=== PATIENT | female | born 1990 | race Caucasian/White ===

== ENCOUNTER 2018-02-07 18:16 | Emergency (ER) | payer MEDICAID, SELFPAY ==
[2018-02-07 18:17] VITALS: BP 138/97; PULSE 99; RESP 16; TEMP 36.1; O2SAT 99; BMI 29.0
--- NOTE | 2018-02-07 20:19 | US_ITS ---
STUDY: FIRST TRIMESTER OBSTETRICAL ULTRASOUND REASON FOR EXAM: Female, 27 years old. Pelvic pain with positive test. LMP: 12/01/2017 TECHNIQUE: Transabdominal and Transvaginal PRIOR ULTRASOUND: None. FINDINGS: There is visualization of a single gestational sac in a normal intrauterine position. The mean sac diameter (MSD) measures 2.05 cm, indicating an estimated gestational age (EGA) of 7 weeks, 1 days. The gestational sac shape is within normal limits. There is a visualized yolk sac. The yolk sac measures 3.7 mm. The placenta is non-visualized. There is visualization of a live embryo. The crown-rump length (CRL) measures 7.2 mm, indicating an estimated gestational age (EGA) of 6 weeks, 5 days. There is demonstrated cardiac activity with a heart rate of 134 bpm. The estimated gestation age (EGA) by LMP is 9 weeks, 5 days. The estimated date of delivery (RIKKI) by LMP is 09/07/2018. The estimated gestation age (EGA) by US is 7 weeks, 0 days. The estimated date of delivery (RIKKI) by US is 09/26/2018. The uterus measures 9.9 x 6.9 x 4.9 centimeters. There is no demonstrated uterine fibroid. The cervix is closed. The right ovary measures 2.4 x 2.1 x 1.8 cm. There is no right ovarian cyst. There is no visualized right adnexal mass or complex lesion. The left ovary measures 3.4 x 2.3 x 1.3 cm. There is no left ovarian cyst. There is no visualized left adnexal mass or complex lesion. There is no fluid in the cul de sac. US/Transvaginal w/Preg US IMPRESSION: Single viable intrauterine with an estimated gestational age by ultrasound of 7 weeks and 0 days. Electronically Signed: Kenisha Sorto MD at 21:32 EDT Tel , Service support ,
[2018-02-07 21:28] VITALS: BP 138/73; PULSE 75; RESP 16; O2SAT 100
--- NOTE | 2018-02-07 22:20 | ED.VISSUMM ---
- ER Visit Summary Date of Service: 02/07/18 Chief Complaint: Lower pelvic pain with vaginal bleeding History of Present Illness: The patient is a 27 F 3P1 AB 1 (spontaneous) female who presents with pelvic pain with minimal vaginal bleeding. She states she is O-. She informed triage she had a molar . Path report was reviewed and there was no evidence of a molar . She denies orthostatic symptoms. She denies pain referred her shoulder. She does complain of frequency and urgency without dysuria or hematuria. She denies fever, chills night sweats. She denies weight gain or weight loss. She denies any ocular, visual or auditory symptoms. She denies any cardiovascular respiratory symptoms. She does report nausea without vomiting diarrhea. She denies history of trauma. She denies any neurologic symptoms. Physical Examination: She appears mildly uncomfortable. Vital signs remarkable for no white blood pressure 138/73. Head is atraumatic normocephalic. Pupils are equal round reactive. Extraocular muscles are intact. TMs are pearly white with landmarks noted. Nares patent with no drainage. Posterior pharynx without erythema or exudate. Uvula is midline. There is no dysphonia or dysphasia. Trachea is midline. There is no stridor with auscultation of the neck. Heart is regular without murmur, gallop or rub. S1 and S2 are normal. Lungs are clear to auscultation with good movement of air bilaterally. Abdomen is soft with no tenderness, guarding or perineal findings. There is no CVA tenderness noted. There is no evidence of umbilical or inguinal hernia. Test Results: Serum quantitative hCG is 40,877. Transvaginal ultrasound reveals a single live IUP 7 weeks 0 days. Emergency Department Course and Treatment: Evaluate patient's discomfort a serum hCG was obtained as well as transvaginal ultrasound. Since she has O- blood and reports vaginal bleeding program protocol was ordered. Treatment Plan: We will get him discharged follow-up with OB Disposition: Charge to home after patient receives RhoGam Impression: 1. Vaginal bleeding first trimester, threatened AB This note was generated with [employer] software. It may contain incorrect words, spelling, and punctuation that were not noted in review of the chart prior to signing ED Disposition - Plan for ED Patient: Disposition: Home or Assisted Living Chief Complaint: Instructions: ED Miscarriage Poss Referrals: Care Physician,Louann Primary [Primary Care Provider] - Andrew Wood [STAFF PHYSICIAN] - 1 Week
== END 2018-02-07 23:01 | disposition home or self-care (01) ==
PROVIDERS: Emergency Provider Emergency Medicine
DX: O20.0 Threatened abortion (principal); Z3A.01 Less than 8 weeks gestation of pregnancy; Z72.0 Tobacco use
CPT/HCPCS: 76817; 84702; 86900; 86901; 90384; 99283; J2790

== ENCOUNTER 2018-06-05 09:40 | Emergency (ER) | payer MEDICAID, SELFPAY ==
[2018-06-05 09:41] VITALS: BP 151/77; PULSE 101; RESP 18; TEMP 36.3; O2SAT 99; BMI 31.1
[2018-06-05] MEDS: 0.9% Normal Saline 1,000 ML 150 ML IV (10:04)
[2018-06-05 10:14] LABS: Mucous, Urine 0 SEEN /hpf (<or=2+)
[2018-06-05 10:18] LABS: Color, Urine Yellow (Yellow); Glucose, Dipstick Normal (Normal); Ketone-Dipstick Negative (Negative); Leukocyte Esterase-Dipstick 100 /ul (Negative); Nitrite-Dipstick Positive (Negative); Occult Blood-Urine 10 /ul (Negative); Protein-Dipstick 15 mg/dl (Negative); Specific Gravity, Urine 1.015 (1.002-1.030); Urine Bilirubin Dipstick Negative (Negative); Urine Clarity Cloudy (Clear); Urine Urobilinogen Normal (Normal)
--- NOTE | 2018-06-05 10:20 | ED.DCSUM_ITS ---
- ER Visit Summary Date of Service: 06/05/18 Chief Complaint: [Swelling in hands] History of Present Illness: The patient is a 27 F [presents the emergency department complaint of swelling in her hands that started today. Patient states she woke up this when she has had numbness and tingling in both hands as well. Patient denies any trauma. Patient is 23 weeks and her due date is September 26. Patient relates history of toxemia with first that required delivery at 36-1/2 weeks. Patient states that she has been feeling the baby move today. Patient denies any abdominal pain or cramping. Patient denies any dysuria. Patient denies any edema of the lower extremities. Patient denies chest pain or shortness of breath.] Physical Examination: [HEENT-PERRLA, EOMI. Cranial nerves II through XII grossly intact. TMs clear. Mucous membranes moist. No adenopathy. Cardiovascular-regular rate and rhythm without murmur or ectopy Lungs-clear to auscultation, chest wall stable without crepitus or subcu emphysema Abdomen-normoactive bowel sounds, soft, nontender, no rebound or rigidity, no peritoneal signs. Extremities-intact ?4, normal range of motion, normal pulses, atraumatic]. I do not appreciate any obvious edema of the hands or upper extremities. There is no edema noted in the lower extremities. Test Results: [CBC with differential showed white count 12.1, hemoglobin 10.7, hematocrit 33, platelets 262. Chemistries unremarkable other than a slightly depressed potassium at 3.4 for which I did give her 40 mEq of potassium chloride p.o. Liver enzymes were normal. Urinalysis did show small amount of protein 15. Patient had 100 leukocyte esterase and positive nitrites as well as +2 bacteria.] Emergency Department Course and Treatment: [Patient was given K-Dur 40 mg p.o. Patient was given Macrobid 100 mg p.o. case was discussed with Dr. Liudmila Ragland who was on-call for [facility] for the patient and I was asked to have patient follow-up with their office in 1-2 days. Patient's blood pressure here initially on arrival was elevated 151/77 however follow-up blood pressures were 122/86 followed by 130/66. Patient's paresthesias in her hands have resolved. I do not appreciate any significant swelling. I do not feel patient is preeclamptic at this time.] Treatment Plan: [Patient will be started on Macrobid and will follow up with her [facility] in 1-2 days] Disposition: [Discharged home in stable condition] Impression: [Paresthesias UTI] This note was generated with [employer] dictation software. It may contain incorrect words, spelling, and punctuation that were not noted in review of the chart prior to signing ED Disposition - Plan for ED Patient: Chief Complaint: Edema Referrals: Care Physician,No Primary [Primary Care Provider] -
[2018-06-05 10:21] LABS: Hematocrit 33.1 % (37-47); Hemoglobin 10.7 g/dl (12.0-15.0); Mean Corp Hgb Conc 32.3 g/gl (32-36); Mean Corpuscular Hgb 26.2 pg (27.0-32.0); Mean Corpuscular Volume 81.1 fL (81-99); Mean Platelet Vol. 10.1 fl (6.2-12.0); Platelet Count 242 K/mm3 (150-450); RBC Distribution Width SD 38.5 fl (35.1-43.9); Red Blood Count 4.08 M/mm3 (4.2-5.4); White Blood Count 12.1 K/mm3 (4.4-11.0)
[2018-06-05 10:25] LABS: Bacteria 2+ /hpf (None Seen); Red Blood Cells-Urine 0-5 SEEN /hpf (0-5); Scan Indicated on CBC? Y/N NO; Squamous Epithelial Cells - UA 0-5 SEEN /hpf (5-10); White Blood Cells 0-5 SEEN /hpf (0-5)
[2018-06-05 10:33] LABS: ALB/GLOB Ratio 0.6 RATIO (0.9-2.4); AST(SGOT) 23 U/L (15-37); Alanine Aminotransfer ALT/SGPT 30 U/L (13-56); Albumin, Serum 2.6 g/dL (3.2-5.0); Alkaline Phosphatase 103 U/L (45-117); Anion Gap 9 (5-15); BUN 8 mg/dL (7-18); BUN/Creat Ratio 16.7 RATIO (10-20); Calcium,Total 8.9 mg/dL (8.5-10.1); Chloride 108 mmol/L (98-107); Creatinine, Serum 0.48 mg/dL (0.55-1.02); EST Glomerular Filtration Rate 166 mL/min (>60); Est Glom Filt Rate - Afr Amer 201 mL/min (>60); Estimated Creatinine Clearance 172.72 ml/min; Globulin 4.1 g/dL (2.2-4.2); Glucose 89 mg/dL (74-106); Potassium 3.4 mmol/L (3.5-5.1); Protein, Total 6.7 g/dL (6.4-8.2); Sodium Level 140 mmol/L (136-145)
--- NOTE | 2018-06-05 11:20 | ED.DEP ---
ED Disposition - Plan for ED Patient: Chief Complaint: Edema Instructions: ED UTI Cystitis Female, ED Paraesthesias Prescriptions: Nitrofurantoin Macrocrystals [Macrobid] 100 mg PO Q12 #14 cap Referrals: Care Physician,No Primary [Primary Care Provider] - Liudmila Ragland MD [STAFF PHYSICIAN] - 2 Days
[2018-06-05] MEDS: Nitrofurantoin Macrocrystals 100 MG Capsule PO (11:25)
[2018-06-05 11:29] VITALS: BP 117/48; PULSE 74; RESP 19; O2SAT 99
== END 2018-06-05 11:30 | disposition home or self-care (01) ==
LOC: ED 09:54
PROVIDERS: Emergency Provider Emergency Medicine
DX: R20.2 Paresthesia of skin (principal); N39.0 Urinary tract infection, site not specified; Z87.891 Personal history of nicotine dependence
CPT/HCPCS: 80053; 81001; 85027; 87077; 87086; 87088; 87186; 96360; 96361; 99285; J7030

== ENCOUNTER 2018-07-03 04:41 | Observation (INO) | payer MEDICAID, SELFPAY ==
[2018-07-03 05:14] VITALS: BMI 32.9
[2018-07-03 05:55] LABS: Color, Urine Yellow (Yellow); Glucose, Dipstick Normal (Normal); Ketone-Dipstick 50 mg/dl (Negative); Leukocyte Esterase-Dipstick 500 /ul (Negative); Nitrite-Dipstick Positive (Negative); Occult Blood-Urine 250 /ul (Negative); Protein-Dipstick 100 mg/dl (Negative); Specific Gravity, Urine 1.015 (1.002-1.030); Urine Bilirubin Dipstick Negative (Negative); Urine Clarity Cloudy (Clear); Urine Urobilinogen 1 mg/dl (Normal); Urine pH 6.5 (5.0 - 8.0)
[2018-07-03 06:05] LABS: Bacteria 2+ /hpf (None Seen); Mucous, Urine 1+ /hpf (<or=2+); Red Blood Cells-Urine 5-10 SEEN /hpf (0-5); Squamous Epithelial Cells - UA 0-5 SEEN /hpf (5-10); White Blood Cells 25-50 SEEN /hpf (0-5)
[2018-07-03] MEDS: 0.9% Normal Saline 1,000 ML 125 ML IV ×2 (06:50→16:37)
[2018-07-03 07:06] LABS: Hemoglobin 9.9 g/dl (12.0-15.0); Mean Corpuscular Volume 81.7 fL (81-99); Mean Platelet Vol. 10.1 fl (6.2-12.0); Platelet Count 295 K/mm3 (150-450); RBC Distribution Width CV 13.4 % (11.6-14.6); RBC Distribution Width SD 38.4 fl (35.1-43.9); Red Blood Count 3.67 M/mm3 (4.2-5.4); White Blood Count 18.6 K/mm3 (4.4-11.0)
[2018-07-03] MEDS: Cefazolin 2 GM in 0.9% Normal Saline 100 ML IV (07:08)
[2018-07-03] MEDS: HYDROmorphone 0.5 MG/0.5 ML SYRINGE IV ×2 (07:09→22:07)
[2018-07-03] MEDS: proMETHazine 25 MG/ML Syringe 12.5 MG IV (07:09)
[2018-07-03 07:17] LABS: Scan Indicated on CBC? Y/N NO
[2018-07-03 07:43] LABS: ALB/GLOB Ratio 0.6 RATIO (0.9-2.4); AST(SGOT) 14 U/L (15-37); Alanine Aminotransfer ALT/SGPT 17 U/L (13-56); Albumin, Serum 2.4 g/dL (3.2-5.0); Alkaline Phosphatase 101 U/L (45-117); Anion Gap 11 (5-15); BUN 7 mg/dL (7-18); BUN/Creat Ratio 19.9 RATIO (10-20); Calcium,Total 8.5 mg/dL (8.5-10.1); Chloride 107 mmol/L (98-107); Creatinine, Serum 0.35 mg/dL (0.55-1.02); EST Glomerular Filtration Rate 237 mL/min (>60); Est Glom Filt Rate - Afr Amer 287 mL/min (>60); Estimated Creatinine Clearance 236.87 ml/min; Globulin 3.8 g/dL (2.2-4.2); Glucose 102 mg/dL (74-106); Potassium 3.6 mmol/L (3.5-5.1); Protein, Total 6.2 g/dL (6.4-8.2); Sodium Level 139 mmol/L (136-145)
--- NOTE | 2018-07-03 10:47 | PCM.HP.OB ---
History History of this : Patient presents with back pain. Denies VB/LOF/ctxs. Reports good FM. Allergies Iodine and Iodide Containing Produc Allergy (Verified 07/03/18 05:14) Itching Home Medications: Home Medications Vit No.130/Iron/FA [ Vitamins] 1 each PO DAILY 06/05/18 Acetaminophen [Tylenol Extra Strength] 500 mg PO Q8H 07/03/18 Aspirin [Aspirin, Baby] 81 mg PO DAILY@0800 07/03/18 Famotidine [Pepcid] 20 mg PO DAILY 07/03/18 Smoking Status: Former smoker Heart Tracin with mod variability, mild variables, accels TOCO Analysis: quiet History Past Pregnancies: Past Pregnancies Delivery Date Name GA/Weeks Outcome Route Weight Gender Labor Length Anesthesia Delivery Location Provider FOB Labs: see [facility] H&P Physical Exam General: Alert, Oriented x3 HEENT: Atraumatic Abdomen: Soft, Non Tender, Non-Distended, Gravid Extremities:: No edema, No tenderness/swelling Neurological: Cranial nerves II-XII grossly intact Assessment/Plan This is a 27 year-old @ 27&6 with pyelonephritis Admit to observation. ID - Elevated wbc, nitrites in urine & back pain are consistent with pyelo in . Will give IV ancef for 24hrs & gentamycin x1. FWB - NST Q shift. Routine care. Plan for d/c home tomorrow on oral meds tomorrow.
[2018-07-03] MEDS: Ondansetron 4 MG/2 ML Vial IV (11:54)
[2018-07-03] MEDS: Cefazolin 1 GM/50 ML BAG IV ×2 (14:08→22:07)
[2018-07-03] MEDS: Acetaminophen 500 MG Tablet 1000 MG PO (15:39)
[2018-07-03] MEDS: Famotidine 20 MG Tablet PO (15:42)
[2018-07-03] MEDS: Prenatal Vits Tablet 1 TABLET PO (16:40)
[2018-07-04] MEDS: 0.9% Normal Saline 1,000 ML 125 ML IV (00:50)
[2018-07-04] MEDS: Cefazolin 1 GM/50 ML BAG IV (06:00)
[2018-07-04] MEDS: Acetaminophen 500 MG Tablet 1000 MG PO (06:00)
[2018-07-04] MEDS: Ondansetron 4 MG/2 ML Vial IV (07:30)
--- NOTE | 2018-07-04 07:33 | PCM.PN.OB ---
Subjective: pt seen at bedside, feeling well. pt reports pain improved, no nausea or vomiting or fevers overnight. pt reports good FM, no vaginal bleeding or cramping. - Physical Exam General: Alert, Oriented x3 Abdomen: Soft, Non Tender, Gravid Musculoskeletal: - - NO CVA tenderness Weight: 95.3 kg Body Mass Index (BMI) 32.9 Intake and Output for Last 24 Hours 07/02/18 07/03/18 07/04/18 23:59 23:59 23:59 Intake Total 2854 / 2854 Output Total 900 / 900 1900 / 1900 Balance -900 / -900 954 / 954 Laboratory Tests Past 24 Hrs 07/03/18 06:50 Sodium 139 Potassium 3.6 Chloride 107 Carbon Dioxide 21.0 Anion Gap 11 BUN 7 Creatinine 0.35 L Estim Creat Clear Calc 236.87 Est GFR (MDRD) Af Amer 287 Est GFR (MDRD) Non-Af 237 BUN/Creatinine Ratio 19.9 Glucose 102 Calcium 8.5 Total Bilirubin 0.20 AST 14 L ALT 17 Alkaline Phosphatase 101 Total Protein 6.2 L Albumin 2.4 L Globulin 3.8 Albumin/Globulin Ratio 0.6 L Medical Necessity - Tobacco Use Smoking Status: Former smoker Assessment/Plan 27yo @ 27 weeks gestation with Pyelonephritis- doing well 1) CBC today 2) start KEFLEX QID and then will take daily for remainder of 3) anticipate dc home after cbc results. 4) F;u in office as scheduled 07/05/18
[2018-07-04 07:54] LABS: Absolute Lymphocyte Count 2.07 X10^3/ul (0.83-4.51); Absolute Neutrophil Count 8.6 X10^3/uL (2.0-7.7); Basophil# 0.01 X10^3/uL; Basophil% 0.1 % (0-1); Eosinophil# 0.17 X10^3/uL; Eosinophils% 1.4 % (0-5); Hematocrit 30.1 % (37-47); Hemoglobin 9.7 g/dl (12.0-15.0); Lymphocyte # 2.07 X10^3/ul (4.0); Lymphocyte % 17.5 % (19-41); Mean Corp Hgb Conc 32.2 g/gl (32-36); Mean Corpuscular Hgb 26.3 pg (27.0-32.0); Mean Corpuscular Volume 81.6 fL (81-99); Mean Platelet Vol. 9.5 fl (6.2-12.0); Monocyte# 0.95 X10^3/uL; Neutrophil # 8.64 X10^3/uL (2.7-7.7); Neutrophil % 72.8 % (47-70); Platelet Count 245 K/mm3 (150-450); RBC Distribution Width CV 13.4 % (11.6-14.6); RBC Distribution Width SD 39.7 fl (35.1-43.9); Red Blood Count 3.69 M/mm3 (4.2-5.4); White Blood Count 11.9 K/mm3 (4.4-11.0)
[2018-07-04 07:55] LABS: Differential Indicated SCAN CRITERIA MET; POSITIVE COUNT NO; POSITIVE DIFFERENTIAL NO; POSITIVE MORPHOLOGY YES
[2018-07-04 08:17] LABS: Reactive Lymphocyte RARE
== END 2018-07-04 08:45 | disposition home or self-care (01) ==
LOC: WPOUT 04:42 → WP 04:43 → WPOUT 07-04 11:19 → WP 07-04 11:38
PROVIDERS: Obstetrics & Gynecology; Admitting Provider Obstetrics & Gynecology; Visit Provider Obstetrics & Gynecology
DX: O23.02 Infections of kidney in pregnancy, second trimester (principal); Z3A.27 27 weeks gestation of pregnancy; Z87.891 Personal history of nicotine dependence
CPT/HCPCS: 96361 ×2; 96365; 96366 ×3; 96375; 96376 ×2; 36415; 59025; 59050; 80053; 81001; 85025; 85027; 87077; 87086; 87088; 87186; 99218; J7030; A4216; G0378; J2405

== ENCOUNTER 2018-09-15 12:17 | Inpatient (IN) | payer MEDICAID, SELFPAY ==
[2018-09-15 12:43] VITALS: BMI 34.1
[2018-09-15] MEDS: Lactated Ringers 1,000 ML 50 ML IV ×3 (12:50→21:05)
[2018-09-15 13:04] LABS: Hematocrit 36.5 % (37-47); Hemoglobin 11.8 g/dl (12.0-15.0); Mean Corp Hgb Conc 32.3 g/gl (32-36); Mean Corpuscular Hgb 26.6 pg (27.0-32.0); Mean Corpuscular Volume 82.4 fL (81-99); Platelet Count 264 K/mm3 (150-450); RBC Distribution Width SD 41.9 fl (35.1-43.9); Red Blood Count 4.43 M/mm3 (4.2-5.4); White Blood Count 12.5 K/mm3 (4.4-11.0)
[2018-09-15 13:06] LABS: Scan Indicated on CBC? Y/N NO
[2018-09-15 13:13] LABS: Prothrombin Time (Protime)PT. 12.9 SECONDS (11.7-14.9)
[2018-09-15 13:14] LABS: Partial Thromboplast Time 31.4 Seconds (24.1-36.2)
[2018-09-15] MEDS: Oxytocin 30 units/NS 500 ml 30 UNITS/500 ML IV.SOLN IV (13:15)
[2018-09-15 13:26] LABS: Amphetamine Urine VISTA NEGATIVE (<1000 ng/mL); Barbiturate Urine VISTA NEGATIVE (< 200 ng/mL); Benzodiazepine Urine VISTA NEGATIVE (< 200 ng/mL); Cocaine Urine VISTA NEGATIVE (< 300 ng/mL); Ecstacy Urine VISTA NEGATIVE (< 500 ng/mL); Methadone Urine VISTA NEGATIVE (< 300 ng/mL); PCP Urine VISTA NEGATIVE (< 25 ng/mL); THC Urine VISTA POSITIVE (< 50 ng/mL); Vista UDS pH Range 6
[2018-09-15 13:31] LABS: AST(SGOT) 19 U/L (15-37); Alanine Aminotransfer ALT/SGPT 22 U/L (13-56); Creatinine, Serum 0.53 mg/dL (0.55-1.02); EST Glomerular Filtration Rate 147 mL/min (>60); Est Glom Filt Rate - Afr Amer 177 mL/min (>60); Estimated Creatinine Clearance 155.05 ml/min; Uric Acid 3.7 mg/dL (2.6-6.0)
--- NOTE | 2018-09-15 16:19 | HP.PCM_ITS ---
History Date of Admission: 09/15/18 Final RIKKI: 09/26/18 Final RIKKI Source: US <20 weeks Gestational age: 38 Weeks and 3 Days History of this : 28-year-old 3 para 0111 at 38-3/7 weeks gestation with EDC of 09/26/2018 by first trimester ultrasound presents from the office with increased blood pressures. Patient states she has had some mild intermittent headaches. No severe persistent headaches. Has some increased facial edema and pedal edema over the last several days and just has not felt well. Denies any epigastric pain. Her has been complicated to date by tobacco use, marijuana use, anxiety, urinary tract infections and antepartum anemia. Patient had an abnormal 1 hour GCT but a normal 3-hour glucose test during the . Obstetrical history is significant for 1 spontaneous miscarriage in 136-week induced all delivery of a 5 pound 12 ounce infant for severe preeclampsia. Medical History: Medical History (Last Updated 07/03/18 @ 10:49 by Andrew Wood) ADHD F90.9 Anemia D64.9 UTI (urinary tract infection) N39.0 Allergies Iodine and Iodide Containing Produc Allergy (Verified 09/15/18 14:32) Itching Home Medications: Home Medications Vit No.130/Iron/FA [ Vitamins] 1 each PO DAILY 06/05/18 Aspirin [Aspirin, Baby] 81 mg PO DAILY@0800 07/03/18 Famotidine [Pepcid] 20 mg PO DAILY 07/03/18 Ferrous Sulfate 325 mg PO BIDCM 09/15/18 Macrobid 100 mg PO BID 09/15/18 Smoking Status: Former smoker Alcohol: None Substance Use Type: Marijuana Number of Fetus(es): 1 Heart Tracing: Normal baseline, moderate variability, spontaneous accelerations. No recurrent decelerations. TOCO Analysis: Contractions every 2 to 3 minutes. History Past Pregnancies: Past Pregnancies Delivery Date Name GA/Weeks Outcome Route Weight Gender Labor Length Anesthesia Delivery Location Provider FOB Expected Delivery Method: Spontaneous Vaginal Review of Systems Constitutional: Denies: Anorexia, Chills, Fever Eyes: Denies: Blurred vision Cardiovascular: Reports: Edema - 1+. Denies: Chest Pain Respiratory: Denies: Shortness of Breath Gastrointestinal: Reports: Constipation Skin: Denies: Rash Neurological: Reports: Headaches - mild intermittent. Denies: Change in Speech Physical Exam General: Alert, Cooperative, No apparent distress HEENT: Atraumatic Cardiovascular: Regular Rhythm Lungs: Normal air movement Abdomen: Soft, Non Tender, Non-Distended, Gravid, Appropriate for Gestational Age Extremities:: Other - edema 1+, 3+ Dtrs, one beat clonus Neurological: Cranial nerves II-XII grossly intact, Neuro grossly intact PAINT AND TABLE EDGER: Normal external genitalia Estimated gestational size: Appropriate for gestational size Presentation: Cephalic Cervix Dilation (cm): 2 - posterior, medium consistency Station: -2 Effacement (%): 60 Assessment/Plan 28-year-old 3 para 0111 at 38-3/7 weeks gestation with EDC of 09/26/2018 presents from the office for increased blood pressures. After prolonged mon itoring in the office, her blood pressures remain persistently elevated in the 140s over 80s-90s range. She has had some increased facial edema and she had 3+ DTRs today. She has no symptoms of severe preeclampsia. At this point, working diagnosis is preeclampsia without severe features. I recommended induction of labor. Estimated weight is less than 4500 g and pelvis clinically adequate to expect vaginal delivery. May have epidural, nitrous oxide or Nubain as needed for pain control. Will use Pitocin and artificial rupture membranes for induction of labor. Labs are reviewed and are normal.
[2018-09-15] MEDS: fentaNYL-bupivacaine (epidural) 100 ML BAG EPIDURAL ×2 (17:19→22:00)
[2018-09-15] MEDS: Ondansetron 4 MG/2 ML Vial IV (20:38)
[2018-09-16] VITALS (16 sets, daily range): BP systolic 116–168; BP diastolic 59–89; PULSE 79–100; RESP 16–20; TEMP 36.3–36.8; O2SAT 97–100
[2018-09-16] MEDS: Mag Hydrox/Al Hydrox/Simeth 30 ML UDC PO (03:15)
[2018-09-16] MEDS: Lactated Ringers 1,000 ML 50 ML IV (03:15)
[2018-09-16] MEDS: Magnesium Sulfate 20 GM/500 ML BAG IV ×2 (03:53→13:46)
[2018-09-16] MEDS: Oxytocin 30 units/NS 500 ml 30 UNITS/500 ML IV.SOLN 334 UNITS IV (05:52)
--- NOTE | 2018-09-16 06:17 | PCM.OB.VAG ---
Vaginal Delivery Maternal Presentation: Medically Indicated Induction Method of Induction: Cervidil, Pitocin, Amniotomy Amniotic Membrane Rupture Type: Artificial Amniotic Fluid Description: Clear Final RIKKI: 09/26/18 Gestational age: 38 Weeks and 4 Days Date of Procedure: 09/16/18 Pre-Operative Diagnosis: labor, preeclampsia w/ severe features Post-Operative Diagnosis: same Surgery/ Procedure Performed: Spontaneous Vaginal Delivery Type of Anesthesia: Epidural Description of Procedure: A vigorous female was delivered MARY over a second-degree perineal laceration. I was unable to reduce the tight nuchal cord x1. The anterior shoulder began to deliver and the decision was made to deliver through it. As I deliver the I was able to push the cord back around the 's body and then untangle it as the infant was expelled. The remainder the infant was delivered with maternal pushing and gentle traction only in less than 15 seconds. The Pitocin infusion was initiated for active management of the third stage. The cord was clamped and cut after 1 minute. The was attended to by the waiting nursing staff. The placenta was delivered spontaneously and intact. The cervix and vagina were intact. The second-degree perineal laceration was repaired with 3-0 Vicryl suture in a running standard fashion. Sponge and needle counts were correct. A vaginal sweep was completed by me. Presentation: MARY Placental Delivery Description: Spontaneous Placenta Disposition: Sent to Pathology Cord Vessel Description: 3 Vessels Nuchal Cord Compression: With compression Cord Gases drawn per routine: ABG, VBG Cord Entanglement: Around neck x 1, tight Drain: Sánchez to straight drain Estimated Blood Loss: 300 Infant A gender: Female (1 minute): 8 (5 minute): 9 Episiotomy Description: None Laceration: 2nd degree - perineal Medications given after delivery: IV Pitocin, - - magnesium sulfate, labetalol Complications: None
[2018-09-16] MEDS: Oxytocin 30 units/NS 500 ml 30 UNITS/500 ML IV.SOLN 167 UNITS IV (06:22)
[2018-09-16] MEDS: Methylergonovine 0.2 MG/ML Ampul IM (06:41)
[2018-09-16] MEDS: Ondansetron 4 MG/2 ML Vial IV (07:29)
[2018-09-16] MEDS: HYDROmorphone 1 MG/ML Syringe IV (07:29)
[2018-09-16] MEDS: Ketorolac 30 MG/ML Syringe IV (08:55)
[2018-09-16] MEDS: Nitrofurantoin Macrocrystals 100 MG Capsule PO (09:33)
[2018-09-16] MEDS: Labetalol 100 MG Tablet PO ×2 (09:33→21:51)
[2018-09-16] MEDS: Famotidine 20 MG Tablet PO (12:34)
[2018-09-16] MEDS: Naproxen 250 MG Tablet PO (15:25)
[2018-09-16] MEDS: Acetaminophen 500 MG Tablet 1000 MG PO (20:21)
[2018-09-17] VITALS (8 sets, daily range): BP systolic 117–139; BP diastolic 57–85; PULSE 70–85; RESP 16–18; TEMP 36.3–36.7; O2SAT 96–99
[2018-09-17] MEDS: Magnesium Sulfate 20 GM/500 ML BAG IV (01:31)
--- NOTE | 2018-09-17 04:00 | NURSING ---
0330 Magnesium sulfate discontinued per physician order.
[2018-09-17] MEDS: Acetaminophen 500 MG Tablet 1000 MG PO ×2 (08:14→22:07)
--- NOTE | 2018-09-17 08:18 | PCM.PN.OB ---
Subjective: pt seen at bedside, doing well. pt reports good pain control. lochia mild. pt denies JEFFREY, blurry vision or epigastric pain. - Physical Exam General: Alert, Oriented x3 Abdomen: Soft, Non Tender, - - fundus firm Extremities: No Calf Tenderness Vital Signs Temp Pulse Resp BP Pulse Ox 98.1 F 70 18 134/83 H 98 09/17/18 08:13 09/17/18 08:13 09/17/18 08:13 09/17/18 08:13 09/17/18 08:13 Oxygen Delivery Method Room Air Weight: 98.883 kg Body Mass Index (BMI) 34.1 Intake and Output for Last 24 Hours 09/15/18 09/16/18 09/17/18 23:59 23:59 23:59 Intake Total 1750 / 1750 2411 / 2411 660 / 660 Output Total 750 / 750 2030 / 2030 500 / 500 Balance 1000 / 1000 381 / 381 160 / 160 Medical Necessity - Tobacco Use Smoking Status: Former smoker Assessment/Plan PPD#1, severe PRE Eclampsia s/p Magnesium for 24hrs post 1) doing well today- VS stable 2) continue PO labetalol 100mg BID 3) will monitor for another 24hrs and if stable - likely dc home tomorrow 4) pain mgmt 5) routine care
[2018-09-17] MEDS: Nitrofurantoin Macrocrystals 100 MG Capsule PO (08:23)
--- NOTE | 2018-09-17 08:24 | DCINST_ITS ---
Discharge Diet: No Restrictions Discharge Activity: Return to Normal Activity, May not drive while taking narcotic pain medications., May Shower May resume sexual activity in: 4-6 weeks Additional Activity Instructions:: Nothing in the vagina for 4-6 weeks. You may return to work/school in 6 weeks. Call your doctor if your incision/area has: Continuous Slow Oozing, Sudden Increased Bleeding, Increased Pain/ Swelling, Increased Redness, Foul Smelling Discharge Call your doctor if you observe: Fever of 101 or Higher, Shortness of breath Additional Instructions: If you experience any of the following, contact your healthcare provider. * Bleeding that soaks a pad every hour for 2 hours * Fever 100.4 or higher * Unrelieved incision or abdominal pain * Swelling, redness, discharge or bleeding from your incision or episiotomy site * Your incision begins to separate * Problems urinating (including inability to urinate or burning while urinating). * Visual changes * Severe headache * Flu-like symptoms * Pain or redness in one of both of your breasts * Pain, warmth, tenderness or swelling in your legs, especially the calf area * Frequent nausea and vomiting * Symptoms of depression or anxiety If you experience any of the following, call 911 or go to the nearest Emergency Room. * Chest pain * Problems breathing * Seizure activity * Partial or complete paralysis of a body part, slurred speech, weakness or drooping of the face, or a sudden inability to walk or hold your balance Allergies/Adverse Reactions: Allergies Iodine and Iodide Containing Produc Allergy (Verified 09/15/18 14:32) Itching Medications to take at Discharge Vit No.130/Iron/FA [ Tablet] 1 each PO DAILY 06/05/18 Ferrous Sulfate 325 mg PO BIDCM 09/15/18 Acetaminophen [Tylenol Extra Strength] 500 mg PO Q6H PRN PRN #30 tablet 09/17/18 Acetaminophen [Tylenol] 1,000 mg PO Q8H PRN PRN tablet 09/17/18 Labetalol [Trandate (Beta Harshad)] 100 mg PO BID #60 tablet 09/17/18 Naproxen [Naprosyn] 250 - 500 mg PO Q8H PRN PRN #30 tablet 09/17/18 The following prescriptions were given: Acetaminophen [Tylenol Extra Strength] 500 mg PO Q6H PRN PRN #30 tablet PRN Reason: Pain Naproxen [Naprosyn] 250 - 500 mg PO Q8H PRN PRN #30 tablet PRN Reason: MILD PAIN (-01/29) Labetalol [Trandate (Beta Harshad)] 100 mg PO BID #60 tablet When: You will need to be seen in the office early this week 09/21 or 09/22 to check your blood pressure. please call to make that appointment. [phone] Primary Care Physician: Care Physician,No Primary [Primary Care Provider] - Test Results: Test results from this visit will be discussed in further detail at your follow- up appointment, if applicable.
[2018-09-17] MEDS: Labetalol 100 MG Tablet PO ×2 (10:20→22:03)
[2018-09-17] MEDS: Naproxen 250 MG Tablet PO (15:22)
[2018-09-17] MEDS: Dibucaine 30 GM Tube 1 APPLIC TOPICAL (15:23)
[2018-09-18 01:50] VITALS: BP 129/73; PULSE 62; RESP 16; TEMP 37; O2SAT 98
[2018-09-18] MEDS: Naproxen 250 MG Tablet PO ×2 (02:32→12:48)
[2018-09-18] MEDS: Acetaminophen 500 MG Tablet 1000 MG PO (06:30)
[2018-09-18 08:18] VITALS: BP 136/73; PULSE 57; RESP 16; TEMP 36.9; O2SAT 99
--- NOTE | 2018-09-18 08:25 | PCM.PN.OB ---
Subjective: pt seen up walking around bedside, doing well. pt reports some irritation in vaginal area where stiches are but overall doing well. pt denies JEFFREY, Blurry vision or abdominal pain. Pt reports mild lochia. urinating w/o difficulty. - Physical Exam General: Alert, Oriented x3 Vital Signs Temp Pulse Resp BP Pulse Ox 98.4 F 57 L 16 136/73 H 99 09/18/18 08:18 09/18/18 08:18 09/18/18 08:18 09/18/18 08:18 09/18/18 08:18 Oxygen Delivery Method Room Air Weight: 98.883 kg Body Mass Index (BMI) 34.1 Intake and Output for Last 24 Hours 09/16/18 09/17/18 09/18/18 23:59 23:59 23:59 Intake Total 2411 / 2411 660 / 660 Output Total 2029 / 2029 500 / 500 Balance 381 / 381 160 / 160 Medical Necessity - Tobacco Use Smoking Status: Former smoker Assessment/Plan PPD#2 doing well- SEVERE PRE E s/p magnesium 1) continue labetalol BID 2) reviewed discharge instructions- will see office 09/21 or 09/22 for BP check 3) VS reviewed- BP well controlled and patient is asymptomatic 4) Dc home 5) routine care
[2018-09-18] MEDS: Labetalol 100 MG Tablet PO (09:48)
[2018-09-18] MEDS: Nitrofurantoin Macrocrystals 100 MG Capsule PO (09:48)
[2018-09-18 12:51] VITALS: BP 147/82; PULSE 75; PULSE 80; RESP 16; TEMP 37.1; O2SAT 97; O2SAT 99
== END 2018-09-18 16:10 | disposition home or self-care (01) | DRG 560 ==
PROVIDERS: Admitting Provider Obstetrics & Gynecology; Referring Provider Obstetrics & Gynecology; Visit Provider Obstetrics & Gynecology
DX: O14.14 Severe pre-eclampsia complicating childbirth (principal); O13.4 Gestational [pregnancy-induced] hypertension without significant proteinuria, complicating childbirth; O99.02 Anemia complicating childbirth; O70.1 Second degree perineal laceration during delivery; O69.1XX0 Labor and delivery complicated by cord around neck, with compression, not applicable or unspecified; Z3A.38 38 weeks gestation of pregnancy; Z37.0 Single live birth; Z87.891 Personal history of nicotine dependence; Z79.82 Long term (current) use of aspirin
CPT/HCPCS: 59025; 59050; 80307; 82565; 84450; 84460; 84550; 85027; 85610; 85730; 86850; 86900; 99218; J7120; G0378; J2405

== ENCOUNTER 2019-02-22 07:50 | Emergency (ER) | payer MEDICAID, SELFPAY ==
[2019-02-22 07:52] VITALS: BP 138/101; PULSE 103; RESP 17; TEMP 36.4; O2SAT 98; BMI 31.3
--- NOTE | 2019-02-22 08:05 | EKG12_ITS ---
Test Reason : BACK Blood Pressure : / mmHG Vent. Rate : 057 BPM Atrial Rate : 057 BPM P-R Int : 152 ms QRS Dur : 090 ms QT Int : 448 ms P-R-T Axes : 040 068 056 degrees QTc Int : 436 ms Sinus bradycardia with sinus arrhythmia Otherwise normal ECG Confirmed by MAXIMUS RODRIGEZ, TROY ([id number]), material expeditor DEVYN BARBOUR ([id number]) on 02/24/2019 11:06:07 AM Referred By: OWEN Confirmed By:TROY STROUD MD
--- NOTE | 2019-02-22 08:06 | ED.VIS.GEN ---
History of Present Illness Chief Complaint: Back Informant: Patient Onset: Days - 3 Context: - - not sure -- thinks she woke up with it Timing: Continuous - and progressively worsening Quality: pain Location: left mid-back Current Severity: Severe Maximum Severity: Severe Worsened by: movement. deep inspiration. 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 no fevers. no leg pain/swelling. no chest pain. Narrative: Patient became concerned because her pain is getting worse, it is making her feel short of breath because it hurts to breathe. She does not have any chest discomfort. No history of DVT or PE. Only past medical history is -induced hypertension, she delivered a baby 5 months ago, and states she has been carrying her baby more lately but had no injury. She also is using a baby carrier to carry baby on her front side while having her arms free but states she does not use it a lot. She denies any palpitations or lightheadedness. She is on control and is a smoker. No recent immobilization, long travel, hospitalization other than having her baby 5 months ago, and no recent surgeries in the last couple months. Past Medical History - Allergies and Home Meds Allergies/Adverse Reactions: Allergies Iodine and Iodide Containing Produc Allergy (Verified 02/22/19 07:51) Itching Primary Care Physician: Care Physician,No Primary [Primary Care Provider] - Past Medical History: None Smoking Status: Current every day smoker Drugs: None Review of Systems General: Reports: Sweats - today. Denies: Chills, Fever Eyes: Denies: Visual changes - bilaterally, Diplopia ENT: Denies: Rhinorrhea, Sore throat Cardiovascular: Reports: Chest pain. Denies: Palpitations Respiratory: Reports: Dyspnea, Cough. Denies: Sputum Gastrointestinal: Denies: Abdominal pain, Nausea, Vomiting, Diarrhea, Melena, Hematochezia Genitourinary: Denies: Dysuria, Hematuria, Frequency Musculoskeletal: Reports: Back pain. Denies: Swelling, Extremity Pain Skin: Denies: Rash, Wounds Neurological: Denies: Headache, Weakness, Numbness Physical Exam Vital Signs/Narrative: Vital Signs Temp Pulse Resp BP Pulse Ox 02/22/19 07:52 97.5 F L 103 H 17 138/101 H 98 Inital Vital Signs reviewed: Yes General: Well nourished, Well developed, No Acute Distress Head: Normocephalic, Atraumatic Eyes: Perrl, EOMI ENT: Moist mucous membranes, No rhinorrhea Neck: Supple, Nontender Cardiovascular: Regular rate, Regular rhythm, No murmurs. Negative for: Tachycardia Respiratory: No distress, CTA bilaterally, Chest nontender Abdomen: Soft, Nontender, Nondistended, Normal bowel sounds Back: Normal Inspection, - - left mid-thoracic diffuse paraspinal tenderness. no rash/lesions.. Negative for: CVA tenderness, Spinal tenderness Extremities: Nontender, No edema. Negative for: Calf Tenderness Skin: Normal color, No rash Neurological: Alert, Oriented x3, Cranial nerves II-XII grossly intact, Normal Strength, Normal Sensation Psychological: Normal Mood, - - mildly anxious due to pain Diagnostic/Tx/Re-eval Impressions Chest X-Ray 02/22/19 08:21 IMPRESSION: Normal x-ray examination of the chest. Electronically Signed: Sherwin Cherrie, at 8:49 EDT , Service support , 02/22/19 08:21 Chest PA and Lateral [RAD] Stat Laboratory Results 02/22/19 02/22/19 02/22/19 08:12 08:12 08:12 WBC 11.8 H RBC 5.02 Hgb 13.2 Hct 40.6 MCV 80.9 L MCH 26.3 L MCHC 32.5 RDW 13.0 RDW Differential 38.2 Plt Count 285 MPV 10.1 Immature Gran % (Auto) 0.200 Neut % (Auto) 69.4 Lymph % (Auto) 22.8 [place] % (Auto) 6.0 Eos % (Auto) 1.4 Baso % (Auto) 0.2 Absolute Neuts (auto) 8.2 H Absolute Lymphs (auto) 2.68 Total Counted Not Reportable D-Dimer Quant (PE/DVT) < 0.27 L Sodium 143 Potassium 3.8 Chloride 111 H Carbon Dioxide 25.0 Anion Gap 7 BUN 10 Creatinine 0.73 Estim Creat Clear Calc 112.57 Est GFR (MDRD) Af Amer 123 Est GFR (MDRD) Non-Af 102 BUN/Creatinine Ratio 13.8 Glucose 98 Calcium 9.2 Troponin I < 0.015 - Rhythm Strip Rhythm Strip: Sinus Rhythm Rate: 60 Ectopy: None - EKG Initial EKG Interpretation: Sinus Rhythm, No Acute Injury Pattern - normal EKG - Medical Decision Making Given the fact that she is on control and smokes, unable to rule out PE with the PERC rule alone. Therefore d-dimer was drawn and is well within normal limits, ruling out pulmonary embolus as cause for her symptoms acutely. The rest of her workup was also unremarkable except for a mild nonspecific leukocytosis. Her chest x-ray is normal. Given her exam and history, and the fact that the workup was unremarkable including EKG, I suspect this is all muscular in etiology. She was given a half dose of Toradol since her last dose of NSAID was around 6 hours ago, she did have some improvement with it. I will prescribe her a muscle relaxer use as needed, is reassured and given appropriate discharge instructions and we discussed lifting with her legs and on her back. Referred to the next doctor on the no-doc list. ED Disposition - Plan for ED Patient: Disposition: Home or Assisted Living Diagnosis: Acute thoracic myofascial strain Instructions: ED Sprain Thoracic Spine Prescriptions: Orphenadrine [Norflex ER] 100 mg PO BID PRN #14 tablet PRN Reason: Muscle Spasm Referrals: Leah Manuel MD [STAFF PHYSICIAN] - 1 Week if not improving
--- NOTE | 2019-02-22 08:09 | NURSING ---
NO OLD EKGS
--- NOTE | 2019-02-22 08:10 | ED.DCSUM_ITS ---
History of Present Illness Chief Complaint: Back Informant: Patient Onset: Days - 3 Context: - - not sure -- thinks she woke up with it Timing: Continuous - and progressively worsening Quality: pain Location: left mid-back Current Severity: Severe Maximum Severity: Severe Worsened by: movement. deep inspiration. 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 no fevers. no leg pain/swelling. no chest pain. Narrative: Patient became concerned because her pain is getting worse, it is making her feel short of breath because it hurts to breathe. She does not have any chest discomfort. No history of DVT or PE. Only past medical history is - induced hypertension, she delivered a baby 5 months ago, and states she has been carrying her baby more lately but had no injury. She also is using a baby carrier to carry baby on her front side while having her arms free but states she does not use it a lot. She denies any palpitations or lightheadedness. She is on control and is a smoker. No recent immobilization, long travel, hospitalization other than having her baby 5 months ago, and no recent surgeries in the last couple months. Past Medical History - Allergies and Home Meds Allergies/Adverse Reactions: Allergies Iodine and Iodide Containing Produc Allergy (Verified 02/22/19 07:51) Itching Primary Care Physician: Care Physician,No Primary [Primary Care Provider] - Past Medical History: None Smoking Status: Current every day smoker Drugs: None Review of Systems General: Reports: Sweats - today. Denies: Chills, Fever Eyes: Denies: Visual changes - bilaterally, Diplopia ENT: Denies: Rhinorrhea, Sore throat Cardiovascular: Reports: Chest pain. Denies: Palpitations Respiratory: Reports: Dyspnea, Cough. Denies: Sputum Gastrointestinal: Denies: Abdominal pain, Nausea, Vomiting, Diarrhea, Melena, Hematochezia Genitourinary: Denies: Dysuria, Hematuria, Frequency Musculoskeletal: Reports: Back pain. Denies: Swelling, Extremity Pain Skin: Denies: Rash, Wounds Neurological: Denies: Headache, Weakness, Numbness Physical Exam Vital Signs/Narrative: Vital Signs Temp Pulse Resp BP Pulse Ox 02/22/19 07:52 97.5 F L 103 H 17 138/101 H 98 Inital Vital Signs reviewed: Yes General: Well nourished, Well developed, No Acute Distress Head: Normocephalic, Atraumatic Eyes: Perrl, EOMI ENT: Moist mucous membranes, No rhinorrhea Neck: Supple, Nontender Cardiovascular: Regular rate, Regular rhythm, No murmurs. Negative for: Tachycardia Respiratory: No distress, CTA bilaterally, Chest nontender Abdomen: Soft, Nontender, Nondistended, Normal bowel sounds Back: Normal Inspection, - - left mid-thoracic diffuse paraspinal tenderness. no rash/lesions.. Negative for: CVA tenderness, Spinal tenderness Extremities: Nontender, No edema. Negative for: Calf Tenderness Skin: Normal color, No rash Neurological: Alert, Oriented x3, Cranial nerves II-XII grossly intact, Normal Strength, Normal Sensation Psychological: Normal Mood, - - mildly anxious due to pain Diagnostic/Tx/Re-eval Impressions Chest X-Ray 02/22/19 08:21 IMPRESSION: Normal x-ray examination of the chest. Electronically Signed: Sherwin Cherrie, at 8:49 EDT , Service support , 02/22/19 08:21 Chest PA and Lateral [RAD] Stat Laboratory Results 02/22/19 02/22/19 02/22/19 08:12 08:12 08:12 WBC 11.8 H RBC 5.02 Hgb 13.2 Hct 40.6 MCV 80.9 L MCH 26.3 L MCHC 32.5 RDW 13.0 RDW Differential 38.2 Plt Count 285 MPV 10.1 Immature Gran % (Auto) 0.200 Neut % (Auto) 69.4 Lymph % (Auto) 22.8 [place] % (Auto) 6.0 Eos % (Auto) 1.4 Baso % (Auto) 0.2 Absolute Neuts (auto) 8.2 H Absolute Lymphs (auto) 2.68 Total Counted Not Reportable D-Dimer Quant (PE/DVT) < 0.27 L Sodium 143 Potassium 3.8 Chloride 111 H Carbon Dioxide 25.0 Anion Gap 7 BUN 10 Creatinine 0.73 Estim Creat Clear Calc 112.57 Est GFR (MDRD) Af Amer 123 Est GFR (MDRD) Non-Af 102 BUN/Creatinine Ratio 13.8 Glucose 98 Calcium 9.2 Troponin I < 0.015 - Rhythm Strip Rhythm Strip: Sinus Rhythm Rate: 60 Ectopy: None - EKG Initial EKG Interpretation: Sinus Rhythm, No Acute Injury Pattern - normal EKG - Medical Decision Making Given the fact that she is on control and smokes, unable to rule out PE with the PERC rule alone. Therefore d-dimer was drawn and is well within normal limits, ruling out pulmonary embolus as cause for her symptoms acutely. The rest of her workup was also unremarkable except for a mild nonspecific leukocytosis. Her chest x-ray is normal. Given her exam and history, and the fact that the workup was unremarkable including EKG, I suspect this is all muscular in etiology. She was given a half dose of Toradol since her last dose of NSAID was around 6 hours ago, she did have some improvement with it. I will prescribe her a muscle relaxer use as needed, is reassured and given appropriate discharge instructions and we discussed lifting with her legs and on her back. Referred to the next doctor on the no-doc list. ED Disposition - Plan for ED Patient: Disposition: Home or Assisted Living Diagnosis: Acute thoracic myofascial strain Instructions: ED Sprain Thoracic Spine Prescriptions: Orphenadrine [Norflex ER] 100 mg PO BID PRN #14 tablet PRN Reason: Muscle Spasm Referrals: Leah Manuel MD [STAFF PHYSICIAN] - 1 Week if not improving
[2019-02-22] MEDS: Ketorolac 15 MG/ML Vial IV (08:19)
--- NOTE | 2019-02-22 08:21 | RAD_ITS ---
STUDY: X-RAY CHEST REASON FOR EXAM: Female, 28 years old. Shortness of breath/dyspnea. Left upper back pain with deep inspiration. TECHNIQUE: PA and lateral views of the chest. COMPARISON: None. FINDINGS: The lungs are clear and expanded. There is no demonstrated pleural abnormality. Normal size heart. Normal mediastinum and michelle. Normal visualized pulmonary arteries. Normal visualized aortic arch and descending thoracic aorta. Normal visualized thoracic spine. Normal visualized ribs, clavicles, and shoulders. There is no demonstrated abnormality of the visualized soft tissue structures of the upper abdomen. RAD/Chest PA and Lateral IMPRESSION: Normal x-ray examination of the chest. Electronically Signed: Sherwin Grier, at 8:49 EDT , Service support ,
[2019-02-22 08:30] LABS: Absolute Lymphocyte Count 2.68 X10^3/ul (0.83-4.51); Absolute Neutrophil Count 8.2 X10^3/uL (2.0-7.7); Basophil# 0.02 X10^3/uL; Basophil% 0.2 % (0-1); Eosinophil# 0.17 X10^3/uL; Eosinophils% 1.4 % (0-5); Hematocrit 40.6 % (37-47); Hemoglobin 13.2 g/dl (12.0-15.0); Lymphocyte # 2.68 X10^3/ul (4.0); Lymphocyte % 22.8 % (19-41); Mean Corp Hgb Conc 32.5 g/gl (32-36); Mean Corpuscular Hgb 26.3 pg (27.0-32.0); Mean Corpuscular Volume 80.9 fL (81-99); Mean Platelet Vol. 10.1 fl (6.2-12.0); Monocyte# 0.71 X10^3/uL; Neutrophil # 8.15 X10^3/uL (2.7-7.7); Neutrophil % 69.4 % (47-70); Platelet Count 285 K/mm3 (150-450); RBC Distribution Width SD 38.2 fl (35.1-43.9); Red Blood Count 5.02 M/mm3 (4.2-5.4); White Blood Count 11.8 K/mm3 (4.4-11.0)
[2019-02-22 08:35] LABS: POSITIVE COUNT NO; POSITIVE DIFFERENTIAL NO; POSITIVE MORPHOLOGY NO
[2019-02-22 08:37] LABS: Anion Gap 7 (5-15); BUN 10 mg/dL (7-18); BUN/Creat Ratio 13.8 RATIO (10-20); Calcium,Total 9.2 mg/dL (8.5-10.1); Chloride 111 mmol/L (98-107); Creatinine, Serum 0.73 mg/dL (0.55-1.02); EST Glomerular Filtration Rate 102 mL/min (>60); Est Glom Filt Rate - Afr Amer 123 mL/min (>60); Estimated Creatinine Clearance 112.57 ml/min; Glucose 98 mg/dL (74-106); Potassium 3.8 mmol/L (3.5-5.1); Sodium Level 143 mmol/L (136-145)
[2019-02-22 08:58] LABS: D-Dimer Quantitative (DVT/PE) < 0.27 FEU/ug/m (0.27-0.49)
[2019-02-22 09:18] VITALS: BP 108/76; PULSE 52; RESP 16; O2SAT 98
== END 2019-02-22 09:19 | disposition home or self-care (01) ==
PROVIDERS: Emergency Provider Emergency Medicine
DX: S29.012A Strain of muscle and tendon of back wall of thorax, initial encounter (principal); X58.XXXA Exposure to other specified factors, initial encounter; Y93.9 Activity, unspecified; Y92.9 Unspecified place or not applicable; F17.200 Nicotine dependence, unspecified, uncomplicated
CPT/HCPCS: 71046; 80048; 84484; 85025; 85379; 93005; 96374; 99283; A4216

== ENCOUNTER 2019-07-21 15:19 | Emergency (ER) | payer MEDICAID, SELFPAY ==
[2019-07-21 15:20] VITALS: BP 133/93; PULSE 86; RESP 15; TEMP 36.6; O2SAT 97; BMI 29.0
--- NOTE | 2019-07-21 15:36 | CT_ITS ---
STUDY: CT ABDOMEN AND PELVIS WITHOUT CONTRAST REASON FOR EXAM: Female, 28 years old. Abdominal pain RADIATION DOSAGE (If Supplied By Facility): CTDIvol = ( 15.52 ) mGy, DLP = ( 760.06 ) mGycm TECHNIQUE: Transaxial images were obtained from the dome of the diaphragm to the symphysis pubis without oral contrast, and without intravenous contrast. Sagittal and coronal images were reconstructed. Individualized dose optimization techniques were used for this CT. COMPARISON: 05/09/2011 FINDINGS: The visualized lung bases are unremarkable. The visualized portions of the heart are within normal limits. Normal liver. Normal gallbladder and extrahepatic biliary system. Normal spleen. Normal pancreas. Normal bilateral adrenal glands. 2 mm nonobstructing stone in the midsection the right kidney. No hydronephrosis, ureteral stone, or ureteral dilatation. Normal left kidney. Normal visualized stomach. Normal small intestine. Normal colon. The appendix is visualized and appears normal. Normal abdominal aorta. Normal inferior vena cava. Normal retroperitoneum. Normal urinary bladder. There is a small umbilical hernia containing fat. Normal osseous structures. CT/Abdomen/Pelvis without Cont IMPRESSION: No acute abnormality. 2 mm nonobstructing right renal stone. Electronically Signed: Beau Hernandez MD at 16:51 EDT Tel , Service support ,
--- NOTE | 2019-07-21 15:42 | ED.VISSUMM ---
- ER Visit Summary Date of Service: 07/21/19 Chief Complaint: Abdominal pain History of Present Illness: The patient is a 28 F who states for the past week she has had pain right of her abdomen. She tells me that when she is just laying there she has no pain. However when she goes to move she has pain. She states that she remembers lifting very heavy boxes of chicken weighing upwards of 60 pounds and carrying them a football lopez distance. States after that she began to have the pain. She denies anything bulging. She is concerned she may have an ovarian cyst that she had those in the past. She notes no nausea vomiting. No urinary symptoms. Normal bowel movements. She denies any rashes. Physical Examination: Afebrile vital signs are stable Gen: Well-nourished well-developed Head: Normocephalic atraumatic Eyes: Perrl EOMI ENT: TMs clear no rhinorrhea moist mucous membranes Neck: Supple no lymphadenopathy no JVD nontender CVS: Regular rate rhythm no murmurs normal S1-S2 Respiratory: No distress clear to auscultation bilaterally chest nontender Abdomen: Soft nontender nondistended normal bowel sounds no masses Back: Nontender Extremity: Nontender no edema Skin: Normal color no rash Neuro: alert orientated ?3 CN II-XII intact normal strength sensation Psych: Normal affect normal mood Test Results: Urine urine test were obtained. These were negative. CT of the abdomen/pelvis was obtained. This did not demonstrate any obvious intra-abdominal pathology. Emergency Department Course and Treatment: I think this is most likely abdominal wall strain. We will continue to treat conservatively. Impression: 1. Acute abdominal wall strain This note was generated with [employer] dictation software. It may contain incorrect words, spelling, and punctuation that were not noted in review of the chart prior to signing ED Disposition - Plan for ED Patient: Disposition: Home or Assisted Living Instructions: MUSCLE STRAIN, Abdomen Referrals: Jose G Hammer III, MD [STAFF PHYSICIAN] - 1 Week if not improving
[2019-07-21 16:00] LABS: Color, Urine Yellow (Yellow); Glucose, Dipstick Normal (Normal); Ketone-Dipstick Negative (Negative); Leukocyte Esterase-Dipstick Negative /ul (Negative); Nitrite-Dipstick Negative (Negative); Occult Blood-Urine Negative /ul (Negative); Protein-Dipstick 30 mg/dl (Negative); Urine Bilirubin Dipstick Negative (Negative); Urine Clarity Clear (Clear); Urine Urobilinogen Normal (Normal)
[2019-07-21 16:02] LABS: Internal QC Validated? YES +Cl - CLEAR BKGD
[2019-07-21 16:03] LABS: Pregnancy, Urine Negative Negative
[2019-07-21 16:09] LABS: Red Blood Cells-Urine 0 SEEN /hpf (0-5); Squamous Epithelial Cells - UA 5-10 SEEN /hpf (5-10); White Blood Cells 0-5 SEEN /hpf (0-5)
[2019-07-21 16:10] LABS: Bacteria 1+ /hpf (None Seen); Mucous, Urine 1+ /hpf (<or=2+)
--- NOTE | 2019-07-21 16:35 | CM.ED ---
Social Work Consult: No PCP Informant: Self- Referral Met with patient in room. This social insurance specialist introduced self as well as social insurance specialist role, patient voicing understanding and agreeable to meeting with this social insurance specialist. This social insurance specialist inquiring about PCP for patient. Patient confirming to not have a PCP and to have been thinking about getting a PCP set up. Patient also voicing to have a diagnosis of depression and to have had depression with last . Patient stating to have had scheduled appointments with PCP and counseling services in the past but to have forgotten about appointments. This social insurance specialist encouraging patient to establish with a PCP and counseling services. Patient declining for this social insurance specialist to set up counseling appointment or PCP appointment. Patient denies suicidal thoughts. Patient reporting to have number for crisis if patient would need this. This social insurance specialist providing patient with list of PCP's in the area. Patient declining for this social insurance specialist to provide patient with list of counseling agencies. All questions answered. Timbo Raphael MSW, HANG
[2019-07-21 17:09] VITALS: BP 157/87; PULSE 61; RESP 17; O2SAT 99
== END 2019-07-21 17:09 | disposition home or self-care (01) ==
PROVIDERS: Emergency Provider Emergency Medicine
DX: S39.011A Strain of muscle, fascia and tendon of abdomen, initial encounter (principal); Z72.0 Tobacco use; X50.0XXA Overexertion from strenuous movement or load, initial encounter; Y93.9 Activity, unspecified; Y92.89 Other specified places as the place of occurrence of the external cause; Y99.9 Unspecified external cause status
CPT/HCPCS: 74176; 81001; 81025; 99282

== ENCOUNTER 2021-09-13 08:49 | Emergency (ER) | payer MEDICAID, SELFPAY ==
[2021-09-13 08:50] VITALS: BP 153/88; PULSE 82; RESP 17; TEMP 36.6; O2SAT 99; BMI 28.1
[2021-09-13] MEDS: Orphenadrine 60 MG/2 ML Ampul IM (09:43)
[2021-09-13] MEDS: Ketorolac 60 MG/2 ML Vial IM (09:43)
--- NOTE | 2021-09-13 09:49 | ED.VIS.BACK ---
HPI History of Present Illness Chief Complaint: Back Informant: patient Onset/Context/Timing Onset: Today Context: Sudden Onset Timing: Continuous Quality: Aching Location: Lumbar Current Severity: Moderate Maximum Severity: Severe Worsened by: improves with Movement and Ambulation Relieved by: Remaining Still Associated Symptoms Associated Symptoms: Negative for Numbness, Tingling, Radiation to Right Leg, Radiation to Left Leg, Unable to Ambulate, Unable to Transfer, Urinary Retention, Urinary Incontinence, Constipation and Fecal Incontinence Narrative Narrative: Patient states she had to go to work this morning, she was up and around and doing okay without any back issues, she went to sit in her car, and she had sudden onset of pain in her low back with spasm as soon as she did this. Throughout her commute, the pain got worse to the point where she was having trouble standing and extending at the back, in order to walk, to a significant degree so she presents for evaluation. She denies any numbness or tingling or weakness or pain radiating into the leg. No bowel or bladder dysfunction. She has had pain in her back like this in the past when she has done heavy lifting but she did not do anything like that to explain this which is why she was concerned. She denies any abdominal pain or urinary issues recently. [facility] Medical History ADHD Anemia UTI (urinary tract infection) Home Medications cyclobenzaprine 10 mg PO TID PRN #20 tablet 09/13/21 [Rx Last Taken Unknown] Allergy/AdvReac Type Severity Reaction Status Date / Time Iodine and Iodide Containing Allergy Itching Verified 09/13/21 08:49 Produc Surgical History (Updated 09/13/21 @ 08:53 by Razia Sebastian) History of tonsillectomy Social History Smoking Status: Current every day smoker tobacco type: cigarettes ROS ROS ED Constitutional Constitutional ED: Denies chills or fever(s) Gastrointestinal Gastrointestinal: Denies abdominal pain, constipation, fecal incontinence, nausea or vomiting Genitourinary Genitourinary ED: Reports other Details: no urinary retention ; Denies abdominal discomfort or urinary incontinence Musculoskeletal Musculoskeletal: Reports as per HPI and back pain; Denies neck pain Integumentary Denies rash or wounds Neurologic Neurologic: Denies headache(s), paresthesias or weakness EXAM Physical Exam Const Vital Signs: 09/13/21 08:50 Temperature 97.8 F Temperature Source Temporal Pulse Rate 82 Respiratory Rate 17 Blood Pressure 153/88 H Blood Pressure Mean 109 Pulse Ox 99 Oxygen Delivery Method Room Air Positive well nourished and well developed General Appearance ED: well developed and NAD HEENT Negative for trauma or tenderness Eyes PERRL and EOMs intact bilaterally Neck full ROM and supple GI normal to inspection, nondistended, normoactive bowel sounds, soft to palpation and non-tender Back/Spine normal to inspection Lumbar Spine / Lower Back: ROM limited, paraspinal muscle tenderness bilateral L4 and L5 and straight leg raise negative bilaterally Extremity normal to inspection, full ROM and no pedal edema Neuro oriented x3 and no sensory deficits noted Sensorium / Orientation: alert Motor Exam: strength 5/5 throughout and clonus absent Deep Tendon Reflexes: Rt Patellar (L4): 2+, Lt Patellar (L4): 2+, Rt Ankle (S1): 2+ and Lt Ankle (S1): 2+ Deep Tendon Reflexes Back: Rt Patellar (L4): 2+, Lt Patellar (L4): 2+, Rt Ankle (S1): 2+ and Lt Ankle (S1): 2+ Plantar Reflex: Downgoing: bilateral Psych mental status grossly normal and thought process normal Skin no rashes or lesions noted and no wounds MDM MDM MDM Narrative Medical decision making narrative: Patient was given injections of Toradol and Norflex and on reevaluation she is ambulatory and states she feels so much better. We will give be given a prescription for cyclobenzaprine to use as needed in addition to [id number] NSAIDs and advised to follow-up if needed. Discharge Plan Triage Chief Complaint: Back ED Provider: Carlos Caro Dx/Rx/DC Orders Clinical Impression: Acute lumbosacral myofascial strain Instructions: ED Back Sprain/Strain Prescriptions: New cyclobenzaprine [cyclobenzaprine] 10 MG tablet 10 mg PO TID PRN (Reason: Muscle Spasm) Qty: 20 RF: 0 Stand Alone Forms: ED Work / School Excuse Primary Care Provider: Care Physician,No Primary Referrals: Mayo Parker MD [STAFF PHYSICIAN] - 1 Week if not improving Care Physician,No Primary [Primary Care Provider] - Disposition Disposition: Home, Self Care
[2021-09-13 10:38] VITALS: BP 127/66; PULSE 71; RESP 16; O2SAT 98
== END 2021-09-13 10:39 | disposition home or self-care (01) ==
PROVIDERS: Emergency Provider Emergency Medicine
DX: S39.012A Strain of muscle, fascia and tendon of lower back, initial encounter (principal); F17.210 Nicotine dependence, cigarettes, uncomplicated; X58.XXXA Exposure to other specified factors, initial encounter
CPT/HCPCS: 96372; 99282

== ENCOUNTER 2022-11-30 10:18 | Emergency (ER) | payer MEDICAID, SELFPAY ==
[2022-11-30 10:18] VITALS: BP 162/120; PULSE 102; RESP 16; TEMP 36.3; O2SAT 99; BMI 28.1
--- NOTE | 2022-11-30 10:38 | EX.ED.DYSGE1 ---
HPI History of Present Illness Chief Complaint: Other, Pain/Inj Narrative Narrative: 32-year-old female here with neck pain for the past 5 days. No she is on Flexeril and prednisone. States she is having continued right-sided neck pain is worse with movement and palpation. Denies any focal numbness weakness or loss sensation. Denies any trouble swallowing. Denies any focal neurologic deficits such as numbness or slurred speech or loss of vision. No recent trauma or falls noted. [facility] Medical History ADHD Anemia UTI (urinary tract infection) Home Medications cyclobenzaprine 10 mg tablet 10 mg PO TID PRN Muscle Spasm #20 TABLETS 09/13/21 [Rx Last Taken Unknown] prednisone 20 mg tablet mg 11/30/22 [History Last Taken Unknown] Allergy/AdvReac Type Severity Reaction Status Date / Time Iodine and Iodide Containing Allergy Itching Verified 11/30/22 10:20 Produc Surgical History (Updated 09/13/21 @ 08:53 by Razia Sebastian) History of tonsillectomy Social History Smoking Status: Current every day smoker tobacco type: cigarettes ROS ROS ED ROS Narrative Constitutional: Denies fever HEENT: Denies sore throat Neck: Endorses neck pain Cardiovascular: Denies chest pain, syncope Respiratory: Denies shortness of breath GI: Denies nausea vomiting or abdominal pain : Denies changes in urinary habits Musculoskeletal: Denies muscle or joint pain Neurologic: Denies numbness weakness or loss of sensation Skin denies rash EXAM Physical Exam Narrative Exam Narrative: Nursing triage notes reviewed, Vital signs reviewed Constitutional: please see mdm HENT: MMM Eyes: Pupils equal round and reactive to light, Extraocular muscles intact Neck: No stridor, no JVD, full neck ROM, TTP over right trapezius, right paraspinal muscles. No midline TTP step-offs or deformities. No carotid bruits. Lungs: Clear to auscultation, No wheezing or rales. No increased work of breathing, no conversational dyspnea, no accessory muscle use, no nasal flaring. No respiratory distress noted Heart: Regular rate and rhythm, No murmurs, No rubs and No gallops, 2+ distal pulses (radial, femoral, posterior tibial) in all extremities Abdomen: Soft, there is no tenderness, rigidity, rebound or guarding, no obvious peritoneal signs, no palpable pulsatile abdominal masses, no auscultated abdominal bruit : No CVAT Extremities: No edema Neuro: No focal neurological deficits, alert and oriented x3, neuro exam at baseline, cranial nerves II through XII are intact. No pain with extraocular muscle movement. There is negative test of skew. Normal speech. 5 of 5 strength in upper and lower extremities in flexion extension. Intact sensation to light touch in upper and lower extremity dermatomes. No truncal or extremity ataxia. No dysdiadochokinesia. Normal gait. 2+ reflexes. No meningeal signs. Negative Babinski. NIH of 0 intact 5/5 strength with ok sign (median), intact finger abduction (ulnar) intact wrist extension (radial n). Intact sensation in the radial, ulnar, and median nerve distributions. Skin: No rash or lesions noted Const Vital Signs: 11/30/22 10:18 Temperature 97.4 F L Temperature Source Temporal Pulse Rate 102 H Respiratory Rate 16 Blood Pressure 162/120 H Blood Pressure Mean 134 Pulse Ox 99 Oxygen Delivery Method Room Air MDM MDM MDM Narrative Medical decision making narrative: Chief Complaint: Neck pain External records reviewed: I considered: Musculoskeletal neck strain, cervical's fracture dislocation, carotid artery dissection, meningitis, subarachnoid hemorrhage, cervical herniated disc. Exam most consistent with musculoskeletal neck strain. Considered obtaining a CTA of the head and neck to rule out carotid artery dissection, cervical fracture/dislocation, subarachnoid hemorrhage or other intracranial abnormalities however thought is unnecessary given nonfocal neuro exam and history more consistent with a musculoskeletal illness. Discussed anti-inflammatory pain medicine and PCP follow-up for outpatient reevaluation. Discussed return precautions. Factors affecting care: Iodine allergy Social determinants of health: For medical follow-up Shared decision making: I will have a discussion with the patient and or visitors regarding risk/benefits of further testing or admission. They will be made aware of of the risk/benefits inherent in this decision they will be given the opportunity to voice understanding. Consults: none Discharge Plan Triage Chief Complaint: Other, Pain/Inj ED Provider: Markus Alas Dx/Rx/DC Orders Clinical Impression: Cervical muscle strain Instructions: ED Neck Sprain or Strain Prescriptions: No Action cyclobenzaprine [cyclobenzaprine] 10 MG tablet 10 mg PO TID PRN (Reason: Muscle Spasm) Qty: 20 0RF prednisone 20 mg tablet Label Comments: Take 2 tablets by mouth once daily for 4 days. Take daily with food. Stand Alone Forms: ED Work / School Excuse Primary Care Provider: Care Physician,No Primary Referrals: Care Physician,No Primary [Primary Care Provider] - Activity Restrictions/Additional Instructions: Please take naproxen, Tylenol as directed for pain relief. Please return if develop numbness, weakness, loss sensation in the upper extremities, fever, decrease in vision slurred speech facial drooping or other concerning neurologic symptoms. Please follow-up with your primary care physician the next available appointment. Disposition Disposition: Home, Self Care Discharge Date/Time: 11/30/22 11:43
[2022-11-30] MEDS: Naproxen 250 MG Tablet PO (11:41)
[2022-11-30] MEDS: oxyCODONE 5 MG Tablet PO (11:41)
== END 2022-11-30 11:43 | disposition home or self-care (01) ==
PROVIDERS: Emergency Provider Emergency Medicine; Visit Provider Emergency Medicine
DX: S16.1XXA Strain of muscle, fascia and tendon at neck level, initial encounter (principal); F17.210 Nicotine dependence, cigarettes, uncomplicated; X58.XXXA Exposure to other specified factors, initial encounter; Y92.9 Unspecified place or not applicable
CPT/HCPCS: 99282

== ENCOUNTER 2023-01-29 11:36 | Emergency (ER) | payer MEDICAID, SELFPAY ==
[2023-01-29 11:37] VITALS: BP 158/101; PULSE 81; RESP 16; TEMP 36.2; O2SAT 100; BMI 28.5
--- NOTE | 2023-01-29 11:59 | CT_ITS ---
STUDY: CT ABDOMEN AND PELVIS WITHOUT CONTRAST REASON FOR EXAM: Female, 32 years old. Right flank pain. RADIATION DOSAGE (If Supplied By Facility): CTDIvol = ( 23.31 ) mGy, DLP = ( 1100.68 ) mGycm TECHNIQUE: Transaxial images were obtained from the dome of the diaphragm to the symphysis pubis without oral contrast, and without intravenous contrast. Sagittal and coronal images were reconstructed. Individualized dose optimization techniques were used for this CT. COMPARISON: Comparison is made with prior study July 21, 2019. FINDINGS: The visualized lung bases are unremarkable. The visualized portions of the heart are within normal limits. Normal liver. Normal gallbladder and extrahepatic biliary system. There are multiple benign calcified granulomata of the spleen. Normal pancreas. Normal bilateral adrenal glands. Normal right kidney. Normal left kidney. Normal visualized stomach. Normal small intestine. Normal colon. The appendix is visualized and appears normal. Normal abdominal aorta. Normal inferior vena cava. There is borderline retroperitoneal lymphadenopathy with enlarged nodes no greater than 10mm in the short axis diameter. Stable calcified lymph nodes in the root of the mesentery. Mild degree of diffuse bilateral wall thickening. There is a small umbilical hernia containing fat. Straightening of the normal lumbar lordosis. Mild irregularity of the superior endplate of the L3 vertebra. CT/Abdomen/Pelvis without Cont IMPRESSION: No evidence of ureteral obstruction. Stable densely calcified mesenteric lymph nodes in the root of the mesentery. Electronically Signed: Sherwin Grier MD at 12:58 EST ,
--- NOTE | 2023-01-29 12:00 | EDS_ITS ---
HPI <ALEX Haile - Last Filed: 01/29/23 14:33> History of Present Illness Chief Complaint: Flank Pain Narrative Narrative: 32-year-old female developed right flank/low back pain last night. It is constant but seems to wax and wane in intensity. It hurts sometimes with movement. Today she noticed blood in her urine so she came in for evaluation. She has no fever chills, nausea or vomiting, abdominal pain, dysuria or frequency. No history of kidney stones but she states she has had a kidney infection in the past. No abdominal surgical history. PFSH <ALEX Haile - Last Filed: 01/29/23 14:33> [facility] Medical History ADHD Anemia UTI (urinary tract infection) Home Medications sulfamethoxazole 800 mg-trimethoprim 160 mg tablet (Bactrim DS) 1 tab PO BID 10 days #20 tabs 01/29/23 [Rx Last Taken Unknown] Allergy/AdvReac Type Severity Reaction Status Date / Time Iodine and Iodide Containing Allergy Itching Verified 01/29/23 11:38 Produc Surgical History (Updated 09/13/21 @ 08:53 by Razia Sebastian) History of tonsillectomy Social History Smoking Status: Current every day smoker tobacco type: cigarettes ROS <ALEX Haile - Last Filed: 01/29/23 14:33> ROS ED ROS Narrative Constitutional: Negative for fever, chills, malaise. CVS: Negative for palpitations, chest pain, syncope. Respiratory: Negative for shortness of breath, cough. GI: Negative for abdominal pain, nausea, vomiting, diarrhea, constipation, melena, hematochezia. : Positive for hematuria. Negative for dysuria, frequency. Skin: Negative for rash, abscess, or wound. Musc: Negative for joint pain, swelling, trauma. Heme: Negative for easy bruising, bleeding, lymphadenopathy. EXAM <ALEX Haile - Last Filed: 01/29/23 14:33> Physical Exam Narrative Exam Narrative: CONST: Patient sitting in no acute distress. EYES: Normal inspection. NECK: Normal inspection. RESP: No respiratory distress, CTAB. CVS: Regular rate and rhythm, no murmur, no gallop. ABD: Soft and nontender, no guarding or rebound, nondistended. Back: Normal inspection, no CVA tenderness. Slightly tender over right lumbar muscles, no midline tenderness or step-offs. SKIN: Color normal, no rash, warm, dry, intact. EXTREMITIES: Normal appearance, no pedal edema. NEURO: Oriented x4. PSYCH: Normal affect. Const Vital Signs: 01/29/23 11:37 Temperature 97.1 F L Temperature Source Temporal Pulse Rate 81 Respiratory Rate 16 Blood Pressure 158/101 H Blood Pressure Mean 120 Pulse Ox 100 Oxygen Delivery Method Room Air <Dr. Owen Krueger MD - Last Filed: 01/29/23 15:18> Physical Exam Const Vital Signs: 01/29/23 11:37 Temperature 97.1 F L Temperature Source Temporal Pulse Rate 81 Respiratory Rate 16 Blood Pressure 158/101 H Blood Pressure Mean 120 Pulse Ox 100 Oxygen Delivery Method Room Air MDM <ALEX Haile - Last Filed: 01/29/23 14:33> [facility] Narrative Medical decision making narrative: 32-year-old female has right flank/lower back pain and hematuria. She appears well and nontoxic. She is mildly hypertensive with otherwise normal vital signs. Does have a history of HTN. On examination abdomen is soft and nontender, no CVA tenderness but she is tender over the right lower back. Labs show normal white count of 9.4, normal electrolytes and renal function 8/0.74. UA is consistent with UTI and was cultured. CT shows no evidence of kidney stone or acute process. With her UTI and right low back pain this may represent possible early pyelonephritis so she will be treated with Bactrim. First dose was given here. She was instructed to return if symptoms worsen and was discharged in stable condition. Differential: UTI, kidney stone, pyelonephritis I have personally performed a face to face assessment of the patient and have reviewed the ALEXX Note. I performed a substantive portion of the visit including all aspects of the following. My dumont findings include: History is remarkable for right-sided flank pain. Patient denies fever or chills. Patient denies dysuria or frequency. She does report urgency and hematuria. She denies nausea, vomit diarrhea. She denies history of pyelonephritis. Exam is patient appears in no obvious distress. Vital signs noted marked for an elevated blood pressure. She has no contraindication to NSAIDs. HEENT exam is unremarkable. Lungs are clear to auscultation. Heart is regular. Rate is normal. There is no murmur, gallop or rub. Abdomen is soft with minimal tenderness to deep palpation suprapubic area. She has equivocal right flank pain. There is no dermatologic lesions noted. Patient has no hyperesthesia, bruising or rash noted flank right lower quadrant. There is no inguinal adenopathy. There is no evidence of inguinal hernia. Medical Decision Making differential diagnosis would include complex acute urinary tract infection, pyelonephritis, obstructing ureteral stone, obstructing stone with infection and kidney stone with infection. Will obtain CT, UA, basic metabolic panel and CBC. Other additions or changes: [None] Lab Data Attestation: I reviewed the patient's lab results. Labs: Laboratory Results - last 24 hr 01/29/23 01/29/23 01/29/23 12:05 12:10 12:10 WBC 9.4 RBC 5.57 H Hgb 14.6 Hct 46.6 MCV 83.7 MCH 26.2 L MCHC 31.3 L RDW Std Deviation 40.6 RDW Coeff of Ruba 13.2 Plt Count 303 MPV 10.3 Immature Gran % (Auto) 0.400 Neut % (Auto) 71.8 H Lymph % (Auto) 20.0 [place] % (Auto) 6.5 Eos % (Auto) 0.8 Baso % (Auto) 0.5 Absolute Neuts (auto) 6.8 Absolute Lymphs (auto) 1.88 Nucleated RBC % 0 Sodium 139 Potassium 3.9 Chloride 107 Carbon Dioxide 28.0 Anion Gap 4 L BUN 8 Creatinine 0.74 Estim Creat Clear Calc 107.12 Est GFR (MDRD) Af Amer 117 Est GFR (MDRD) Non-Af 97 BUN/Creatinine Ratio 10.8 Glucose 99 Calcium 9.1 Urine Color Yellow Urine Clarity Clear Urine pH 8.0 Ur Specific [place] 1.015 Urine Protein 15 H Urine Glucose (UA) Normal Urine Ketones Negative Urine Occult Blood 10 H Urine Nitrite Positive H Urine Bilirubin Negative Urine Urobilinogen Normal Ur Leukocyte Esterase 25 H Urine RBC 0 SEEN Urine WBC 0-5 SEEN Ur Squamous Epith Cells 0 SEEN Urine Bacteria 3+ Urine Mucus 0 SEEN Urine Test Negative Radiography Diagnostic Testing: Clinical Impression(s) from Imaging Studies Abdomen/Pelvis CT 01/29/23 11:59 IMPRESSION: No evidence of ureteral obstruction. Stable densely calcified mesenteric lymph nodes in the root of the mesentery. Electronically Signed: Sherwin Grier MD at 12:58 EST , <Dr. Owen Krueger MD - Last Filed: 01/29/23 15:18> [facility] MDM Narrative Medical decision making narrative: 32-year-old female has right flank/lower back pain and hematuria. She appears well and nontoxic. She is mildly hypertensive with otherwise normal vital signs. Does have a history of HTN. On examination abdomen is soft and nontender, no CVA tenderness but she is tender over the right lower back. Labs show normal white count of 9.4, normal electrolytes and renal function 8/0.74. UA is consistent with UTI and was cultured. CT shows no evidence of kidney stone or acute process. Differential: UTI, kidney stone, pyelonephritis I have personally performed a face to face assessment of the patient and have reviewed the ALEXX Note. I performed a substantive portion of the visit including all aspects of the following. My dumont findings include: History is remarkable for right-sided flank pain. Patient denies fever or chills. Patient denies dysuria or frequency. She does report urgency and hematuria. She denies nausea, vomit diarrhea. She denies history of pyelonephritis. Exam is patient appears in no obvious distress. Vital signs noted marked for an elevated blood pressure. She has no contraindication to NSAIDs. HEENT exam is unremarkable. Lungs are clear to auscultation. Heart is regular. Rate is normal. There is no murmur, gallop or rub. Abdomen is soft with minimal tenderness to deep palpation suprapubic area. She has equivocal right flank pain. There is no dermatologic lesions noted. Patient has no hyperesthesia, bruising or rash noted flank right lower quadrant. There is no inguinal adenopathy. There is no evidence of inguinal hernia. Medical Decision Making differential diagnosis would include complex acute urinary tract infection, pyelonephritis, obstructing ureteral stone, obstructing stone with infection and kidney stone with infection. Will obtain CT, UA, basic metabolic panel and CBC. Other additions or changes: [None] History & Record Review Discussion w/independent historian: Patient Lab Data Lab results narrative: CBC is unremarkable basic metabolic panel is unremarkable. Urine is remarkable 3+ bacteria leukoesterase, blood and nitrites. Urine culture was sent. Labs: Laboratory Results - last 24 hr 01/29/23 01/29/23 01/29/23 12:05 12:10 12:10 WBC 9.4 RBC 5.57 H Hgb 14.6 Hct 46.6 MCV 83.7 MCH 26.2 L MCHC 31.3 L RDW Std Deviation 40.6 RDW Coeff of Ruba 13.2 Plt Count 303 MPV 10.3 Immature Gran % (Auto) 0.400 Neut % (Auto) 71.8 H Lymph % (Auto) 20.0 [place] % (Auto) 6.5 Eos % (Auto) 0.8 Baso % (Auto) 0.5 Absolute Neuts (auto) 6.8 Absolute Lymphs (auto) 1.88 Nucleated RBC % 0 Sodium 139 Potassium 3.9 Chloride 107 Carbon Dioxide 28.0 Anion Gap 4 L BUN 8 Creatinine 0.74 Estim Creat Clear Calc 107.12 Est GFR (MDRD) Af Amer 117 Est GFR (MDRD) Non-Af 97 BUN/Creatinine Ratio 10.8 Glucose 99 Calcium 9.1 Urine Color Yellow Urine Clarity Clear Urine pH 8.0 Ur Specific [place] 1.015 Urine Protein 15 H Urine Glucose (UA) Normal Urine Ketones Negative Urine Occult Blood 10 H Urine Nitrite Positive H Urine Bilirubin Negative Urine Urobilinogen Normal Ur Leukocyte Esterase 25 H Urine RBC 0 SEEN Urine WBC 0-5 SEEN Ur Squamous Epith Cells 0 SEEN Urine Bacteria 3+ Urine Mucus 0 SEEN Urine Test Negative Radiography Diagnostic Testing: Clinical Impression(s) from Imaging Studies Abdomen/Pelvis CT 01/29/23 11:59 IMPRESSION: No evidence of ureteral obstruction. Stable densely calcified mesenteric lymph nodes in the root of the mesentery. Electronically Signed: Sherwin Grier MD at 12:58 EST , There is no evidence of ureteral obstruction. There is no evidence of renal calculi Discharge Plan Triage Chief Complaint: Flank Pain ED Midlevel Provider: Kyung Fernandez ED Provider: Owen Krueger Dx/Rx/DC Orders Clinical Impression: UTI (urinary tract infection), Acute right flank pain, Elevated blood pressure reading Instructions: Urinary Tract Infections in Women Prescriptions: New sulfamethoxazole-trimethoprim [Bactrim DS] 800-160 mg tablet 1 tab PO BID 10 Days Qty: 20 0RF Primary Care Provider: Care Physician,No Primary Referrals: Care Physician,No Primary [Primary Care Provider] - Activity Restrictions/Additional Instructions: You have a urinary tract infection. Your labs and CT scan look normal with no signs of kidney stone or kidney infection. However with the pain moving up your back we will give you an antibiotic that will cover both kidney and urine infections called Bactrim. Take all of this medication. If symptoms worsen come back to the emergency room. Disposition Disposition: Home, Self Care Discharge Date/Time: 01/29/23 13:54
[2023-01-29 12:11] LABS: Mucous, Urine 0 SEEN /hpf (<or=2+); Red Blood Cells-Urine 0 SEEN /hpf (0-5); Squamous Epithelial Cells - UA 0 SEEN /hpf (5-10)
[2023-01-29] MEDS: Ketorolac 30 MG/ML Syringe IV (12:16)
[2023-01-29] MEDS: 0.9% Normal Saline 1,000 ML 999 ML IV (12:16)
[2023-01-29 12:17] LABS: Color, Urine Yellow (Yellow); Glucose, Dipstick Normal (Normal); Ketone-Dipstick Negative (Negative); Leukocyte Esterase-Dipstick 25 /ul (Negative); Nitrite-Dipstick Positive (Negative); Occult Blood-Urine 10 /ul (Negative); Protein-Dipstick 15 mg/dl (Negative); Specific Gravity, Urine 1.015 (1.002-1.030); Urine Bilirubin Dipstick Negative (Negative); Urine Clarity Clear (Clear); Urine Urobilinogen Normal (Normal)
[2023-01-29 12:19] LABS: Absolute Lymphocyte Count 1.88 X10^3/uL (0.83-4.51); Absolute Neutrophil Count 6.8 X10^3/uL (2.0-7.7); Basophil# 0.05 X10^3/uL; Basophil% 0.5 % (0-1); Eosinophil# 0.08 X10^3/uL; Eosinophils% 0.8 % (0-5); Hematocrit 46.6 % (37-47); Hemoglobin 14.6 g/dL (12.0-15.0); Lymphocyte # 1.88 X10^3/ul (0.83-4.51); Mean Corp Hgb Conc 31.3 g/dL (32-36); Mean Corpuscular Hgb 26.2 pg (27.0-32.0); Mean Corpuscular Volume 83.7 fL (81-99); Mean Platelet Vol. 10.3 fl (6.2-12.0); Monocyte# 0.61 X10^3/uL; Monocyte% 6.5 % (0-10); NRBC Flagged by Analyzer 0 % (0-5); Neutrophil # 6.76 X10^3/uL (2.7-7.7); Neutrophil % 71.8 % (47-70); Platelet Count 303 K/mm3 (150-450); RBC Distribution Width CV 13.2 % (11.6-14.6); RBC Distribution Width SD 40.6 fl (35.1-43.9); Red Blood Count 5.57 M/mm3 (4.2-5.4); White Blood Count 9.4 K/mm3 (4.4-11.0)
[2023-01-29 12:32] LABS: Bacteria 3+ /hpf (None Seen); Internal QC Validated? YES +Cl - CLEAR BKGD; White Blood Cells 0-5 SEEN /hpf (0-5)
[2023-01-29 12:33] LABS: Pregnancy, Urine Negative Negative
[2023-01-29 12:38] LABS: Anion Gap 4 (5-15); BUN 8 mg/dL (7-18); BUN/Creat Ratio 10.8 RATIO (10-20); Calcium,Total 9.1 mg/dL (8.5-10.1); Chloride 107 mmol/L (98-107); Creatinine, Serum 0.74 mg/dL (0.55-1.02); EST Glomerular Filtration Rate 97 mL/min (>60); Est Glom Filt Rate - Afr Amer 117 mL/min (>60); Estimated Creatinine Clearance 107.12 ml/min; Glucose 99 mg/dL (74-106); Potassium 3.9 mmol/L (3.5-5.1); Sodium Level 139 mmol/L (136-145)
[2023-01-29] MEDS: Smz/Tmp Ds Tablet 1 TABLET PO (13:51)
== END 2023-01-29 13:54 | disposition home or self-care (01) ==
PROVIDERS: Physician Assistant; Emergency Provider Emergency Medicine; Visit Provider Emergency Medicine
DX: N39.0 Urinary tract infection, site not specified (principal); F17.210 Nicotine dependence, cigarettes, uncomplicated; R03.0 Elevated blood-pressure reading, without diagnosis of hypertension; M54.50 Low back pain, unspecified; R31.9 Hematuria, unspecified; R10.9 Unspecified abdominal pain
CPT/HCPCS: 74176; 80048; 81001; 81025; 85025; 87077; 87086; 87088; 87186; 99283; J7030; A4216

== ENCOUNTER 2024-07-19 10:16 | Emergency (ER) | payer MEDICAID, SELFPAY ==
[2024-07-19 10:17] VITALS: BP 190/116; PULSE 93; RESP 18; TEMP 36; O2SAT 97; BMI 30.7
--- NOTE | 2024-07-19 10:29 | EX.ED.DYSGE1 ---
HPI History of Present Illness Chief Complaint: Hypertension [facility] Medical History ADHD Anemia UTI (urinary tract infection) Home Medications ?Medication ?Instructions ?Recorded ?Last Taken ?Type sulfamethoxazole 800 1 tab PO BID 10 days #20 tabs 01/29/23 Unknown Rx mg-trimethoprim 160 mg tablet (Bactrim DS) Allergy/AdvReac Type Severity Reaction Status Date / Time Iodine and Iodide Containing Allergy Itching Verified 07/19/24 10:19 Produc Surgical History (Updated 09/13/21 @ 08:53 by Razia Sebastian) History of tonsillectomy Social History Smoking Status: Current every day smoker tobacco type: cigarettes EXAM Physical Exam Const Vital Signs: 07/19/24 10:17 07/19/24 11:18 07/19/24 11:18 Temperature 96.8 F L 98 F 98 F Temperature Source Temporal Temporal Temporal Pulse Rate 93 67 67 Respiratory Rate 18 18 16 Blood Pressure 190/116 H 166/103 H 166/103 H Blood Pressure Mean 140 124 124 Pulse Ox 97 100 100 Oxygen Delivery Method Room Air Room Air Room Air MDM MDM MDM Narrative Medical decision making narrative: HISTORY OF PRESENT ILLNESS: 33-year-old female presents with concern for elevated blood pressure. Patient states she woke up this morning felt slightly short of breath and a sore throat. She also Dors a cough is nonproductive. She notes her daughters been sick as well. She underwent urgent care to get a strep test and COVID test but they told her to come to the emergency department secondary elevated blood pressure. Patient denies significant headache, loss of vision, slurred speech, loss of movement or sensation, confusion. Currently denies chest pain or shortness of breath. [place] leg swelling. Denies any changes in urinary habits. REVIEW OF SYSTEMS: Pertinent positives: Elevated blood pressure Pertinent negatives: Headache, chest pain, leg swelling, focal loss of sensation or weakness. PHYSICAL EXAM: Nursing triage notes reviewed, Vital signs reviewed Constitutional: please see mdm HENT: MMM Eyes: Pupils equal round and reactive to light, Extraocular muscles intact Neck: No stridor, no JVD, full neck ROM Lungs: Clear to auscultation, No wheezing or rales. No increased work of breathing, no conversational dyspnea, no accessory muscle use, no nasal flaring. No respiratory distress noted Heart: Regular rate and rhythm, No murmurs, No rubs and No gallops, 2+ distal pulses (radial, femoral, posterior tibial) in all extremities Abdomen: Soft, there is no tenderness, rigidity, rebound or guarding, no obvious peritoneal signs, no palpable pulsatile abdominal masses, no auscultated abdominal bruit : No CVAT Extremities: No edema Neuro: Alert and oriented x3, neuro exam at baseline, cranial nerves II through XII are intact. No pain with extraocular muscle movement. There is negative test of skew. 5 of 5 strength in upper and lower extremities in flexion extension. Intact sensation to light touch in upper and lower extremity dermatomes. No truncal or extremity ataxia. No dysdiadochokinesia. Normal gait. 2+ reflexes in upper and lower extremities. No meningeal signs. Negative Babinski. NIH of 0. Skin: No rash or lesions noted MEDICAL DECISION MAKING: Chief Complaint: Elevated blood pressure, viral URI External records reviewed: Imaging reviewed: Chest x-ray reviewed from 2019 shows no acute process Factors affecting care: none Social determinants of health: none History obtained from others: none Consults: none MDM Narrative: Patient initially hypertensive with a blood pressure 190/116 otherwise afebrile and nontoxic-appearing. Patient initially had no focal neurologic deficits. Initial blood pressure was documented 190/116 but during my exam her blood pressure is 166/88. I considered the following differential diagnosis: Endorgan damage from elevated blood pressure including but not limited to ICH, ACS, heart failure, kidney damage, strep throat, COVID. I consider obtaining a CT scan of the head to rule out ICH however thought this was not indicated given the patient's nonfocal neuroexam. In addition to this her blood pressure elevated but not concerned only so with systolic and diastolic blood pressure in the 160s/80s respectively. ALL IMAGES (IF OBTAINED) HAVE BEEN PERSONALLY REVIEWED AND INTERPRETED BY MYSELF. EKG with normal sinus rhythm, normal axis, normal intervals, no STEMI High-sensitivity troponin is negative, no evidence of myocardial ischemia I have personally reviewed the patient's chest x-ray. Chest x-ray is unremarkable for pulmonary edema, pneumothorax, pneumonia or focal cardiopulmonary abnormality. CBC without leukocytosis, severe anemia, no thrombocytopenia. BMP without significant hyponatremia but noted mild hypokalemia will replace with oral potassium, no evidence of metabolic acidosis with a normal bicarb, no evidence of endorgan hypoperfusion, no evidence of ALPHONSE strep PCR negative COVID flu RSV negative The synthesis of the patient's history, physical exam, labs images suggest elevated blood pressure likely secondary to viral URI, stress response. No signs of focal neurologic deficits, endorgan damage. There was mild hypokalemia will replace this with oral potassium. Encourage patient continue drink plenty of fluids. Viral URI will likely resolve in 7 to 14 days. Strict return precautions were discussed. PCP follow-up for blood pressure recheck was also discussed. The patient and/or family, caregivers express understanding. The patient and/or family, caregivers agrees with the plan. Shared decision making: I will have a discussion with the patient and or visitors regarding risk/benefits of further testing or admission. They will be made aware of of the risk/benefits inherent in this decision they will be given the opportunity to voice understanding. Total critical care time today provided was at least 0 minutes. This excludes separately billable procedures. Critical care time (if documented) is secondary to the patient having high probability of clinically significant/life threatening deterioration in the patient's condition which required my urgent intervention. Impression: 1. Elevated blood pressure 2. Viral URI 3. Hypokalemia Dispo: Discharge home This note was generated with [employer] dictation software. It may contain incorrect words, spelling, and punctuation that were not noted in review of the chart prior to signing. Lab Data Labs: Laboratory Results - last 24 hr 07/19/24 11:12 WBC 10.9 RBC 4.79 Hgb 12.5 Hct 39.2 MCV 81.8 MCH 26.1 L MCHC 31.9 L RDW Std Deviation 41.1 RDW Coeff of Ruba 13.8 Plt Count 262 MPV 10.2 Immature Gran % (Auto) 0.500 Neut % (Auto) 75.3 H Lymph % (Auto) 13.8 L Swisher % (Auto) 8.6 Eos % (Auto) 1.4 Baso % (Auto) 0.4 Absolute Neuts (auto) 8.2 H Absolute Lymphs (auto) 1.50 Nucleated RBC % 0 Sodium 139 Potassium 3.3 L Chloride 108 H Carbon Dioxide 27.0 Anion Gap 4 L BUN 13 Creatinine 0.75 Estim Creat Clear Calc 123.26 Est GFR (MDRD) Af Amer 114 Est GFR (MDRD) Non-Af 94 BUN/Creatinine Ratio 17.3 Glucose 95 Calcium 8.5 Troponin I High Sens 7 Radiography Diagnostic Testing: Clinical Impression(s) from Imaging Studies Chest X-Ray 07/19/24 11:10 IMPRESSION: Normal x-ray examination of the chest. Electronically Signed: Sherwin Grier MD at 11:55 EDT , Discharge Plan Triage Chief Complaint: Hypertension ED Provider: Markus Alas Dx/Rx/DC Orders Prescriptions: No Action sulfamethoxazole-trimethoprim [Bactrim DS] 800-160 mg tablet 1 tab PO BID 10 Days Qty: 20 0RF Primary Care Provider: Care Physician,No Primary Referrals: Care Physician,No Primary [Primary Care Provider] - Print Language: Pashto
--- NOTE | 2024-07-19 10:48 | EKG12_ITS ---
Test Reason : HIGH BP Blood Pressure : / mmHG Vent. Rate : 077 BPM Atrial Rate : 077 BPM P-R Int : 156 ms QRS Dur : 090 ms QT Int : 428 ms P-R-T Axes : 037 047 037 degrees QTc Int : 484 ms Normal sinus rhythm Prolonged QT Abnormal ECG Confirmed by Chester Dickerson ([id number]), film and video editor DEVYN BARBOUR ([id number]) on 07/20/2024 2:04:13 PM Referred By: Confirmed By:Chester Dickerson
--- NOTE | 2024-07-19 11:10 | RAD_ITS ---
STUDY: X-RAY CHEST REASON FOR EXAM: Female, 33 years old. Elevated blood pressure, cough TECHNIQUE: Single AP portable view of the chest. COMPARISON: Comparison is made with prior study dated February 22, 2019. FINDINGS: EKG electrodes are seen. The lungs are clear and expanded. There is no demonstrated pleural abnormality. Normal size heart. Normal mediastinum and michelle. Normal visualized pulmonary arteries. Normal visualized aortic arch and descending thoracic aorta. Normal visualized thoracic spine. Normal visualized ribs, clavicles, and shoulders. There is no demonstrated abnormality of the visualized soft tissue structures of the upper abdomen. RAD/Chest 1 View (Portable) IMPRESSION: Normal x-ray examination of the chest. Electronically Signed: Sherwin Grier MD at 11:55 EDT ,
[2024-07-19 11:18] VITALS: BP 166/103; PULSE 67; RESP 16; RESP 18; TEMP 36.6; O2SAT 100
[2024-07-19 11:25] LABS: Absolute Neutrophil Count 8.2 X10^3/uL (2.0-7.7); Basophil# 0.04 X10^3/uL; Basophil% 0.4 % (0-1); Eosinophil# 0.15 X10^3/uL; Eosinophils% 1.4 % (0-5); Hematocrit 39.2 % (37-47); Hemoglobin 12.5 g/dL (12.0-15.0); Lymphocyte % 13.8 % (19-41); Mean Corp Hgb Conc 31.9 g/dL (32-36); Mean Corpuscular Hgb 26.1 pg (27.0-32.0); Mean Corpuscular Volume 81.8 fL (81-99); Mean Platelet Vol. 10.2 fl (6.2-12.0); Monocyte# 0.93 X10^3/uL; Monocyte% 8.6 % (0-10); NRBC Flagged by Analyzer 0 % (0-5); Neutrophil # 8.18 X10^3/uL (2.7-7.7); Neutrophil % 75.3 % (47-70); Platelet Count 262 K/mm3 (150-450); RBC Distribution Width CV 13.8 % (11.6-14.6); RBC Distribution Width SD 41.1 fl (35.1-43.9); Red Blood Count 4.79 M/mm3 (4.2-5.4); White Blood Count 10.9 K/mm3 (4.4-11.0)
[2024-07-19] MEDS: Acetaminophen 500 MG Tablet PO (11:25)
[2024-07-19] MEDS: Ondansetron 4 MG/2 ML Vial IV (11:26)
[2024-07-19] MEDS: 0.9% Normal Saline (1000mL) 1,000 ML 1000 ML IV (11:26)
[2024-07-19 11:48] LABS: Anion Gap 4 (5-15); BUN 13 mg/dL (7-18); BUN/Creat Ratio 17.3 RATIO (10-20); Calcium,Total 8.5 mg/dL (8.5-10.1); Chloride 108 mmol/L (98-107); Creatinine, Serum 0.75 mg/dL (0.55-1.02); EST Glomerular Filtration Rate 94 mL/min (>60); Est Glom Filt Rate - Afr Amer 114 mL/min (>60); Estimated Creatinine Clearance 123.26 ml/min; Glucose 95 mg/dL (74-106); Potassium 3.3 mmol/L (3.5-5.1); Sodium Level 139 mmol/L (136-145); Troponin-I HS 7 pg/mL (3.0-54.0)
[2024-07-19 12:00] VITALS: BP 164/92; PULSE 67; RESP 18; O2SAT 100
[2024-07-19 12:41] VITALS: BP 164/92; PULSE 67; RESP 18; TEMP 36.3; O2SAT 100
== END 2024-07-19 12:41 | disposition home or self-care (01) ==
PROVIDERS: Emergency Provider Emergency Medicine; Visit Provider Emergency Medicine
DX: J06.9 Acute upper respiratory infection, unspecified (principal); R03.0 Elevated blood-pressure reading, without diagnosis of hypertension; E87.6 Hypokalemia; F17.210 Nicotine dependence, cigarettes, uncomplicated
CPT/HCPCS: 71045; 80048; 84484; 85025; 87631; 87651; 93005; 96361; 96374; 99283; J7030; A4216; J2405

== ENCOUNTER → 2024-08-10 | Outpatient (CLI) | payer MEDICAID, SELFPAY ==
[2024-08-10 15:28] LABS: Anion Gap 7 (5-15); BUN 18 mg/dL (7-18); BUN/Creat Ratio 25.6 RATIO (10-20); Chloride 107 mmol/L (98-107); Cholesterol 167 mg/dL (200); EST Glomerular Filtration Rate 102 mL/min (>60); Est Glom Filt Rate - Afr Amer 123 mL/min (>60); Glucose 85 mg/dL (74-106); High Density Lipoprotein 56 mg/dL; Potassium 3.8 mmol/L (3.5-5.1); Sodium Level 139 mmol/L (136-145); Triglycerides 157 mg/dL; Very Low Density Lipoprotein 31 mg/dL (5-40)
== END | disposition home or self-care (01) ==
PROVIDERS: PCP Family Medicine; Referring Provider Family Medicine; Visit Provider Family Medicine
DX: I10 Essential (primary) hypertension (principal)
CPT/HCPCS: 36415; 80048; 80061

== ENCOUNTER 2025-02-11 10:54 | Emergency (ER) | payer MEDICAID, SELFPAY ==
[2025-02-11 10:55] VITALS: BP 192/126; PULSE 81; RESP 18; TEMP 36.6; O2SAT 97
--- NOTE | 2025-02-11 11:07 | EDS_ITS ---
HPI <ALEX Jara - Last Filed: 02/11/25 11:29> History of Present Illness Chief Complaint: Wound Check Narrative Narrative: Patient presenting today due to concerns for acne to her face. She reports that over the last year she has had acne. She does put benzyl peroxide and acne patches on the area. Last night, she was trying to pop a pimple above her left eyebrow in the shower and this morning it appeared inflamed, prompting her to come in for evaluation. She denies fevers, chills, nausea, vomiting. She denies any chronic medical conditions. PFSH <ALEX Jara - Last Filed: 02/11/25 11:29> [facility] Medical History UTI (urinary tract infection) Anemia ADHD Home Medications ?Medication ?Instructions ?Recorded ?Last Taken ?Type sulfamethoxazole 800 1 tab PO BID 10 days #20 tab s 01/29/23 Unknown Rx mg-trimethoprim 160 mg tablet (Bactrim DS) Allergy/AdvReac Type Severity Reaction Status Date / Time Iodine and Iodide Containing Allergy Itching Verified 02/11/25 10:58 Produc Surgical History History of tonsillectomy Social History Smoking Status: Former smoker ROS <ALEX Jara - Last Filed: 02/11/25 11:29> ROS ED Constitutional Constitutional ED: Denies chills or fever(s) Cardiovascular Cardiovascular: Denies chest pain Respiratory/Chest Respiratory/Chest: Denies dyspnea Gastrointestinal Gastrointestinal: Denies abdominal pain, nausea or vomiting Musculoskeletal Musculoskeletal: Denies arthralgias or myalgias Integumentary Reports other Details: Facial acne ; Denies abscess or rash Neurologic Neurologic: Denies weakness EXAM <ALEX Jara - Last Filed: 02/11/25 11:29> Physical Exam Const Vital Signs: 02/11/25 10:55 02/11/25 11:09 02/11/25 11:17 Temperature 98 F 97.6 F L 98 F Temperature Source Temporal Oral Pulse Rate 81 67 80 Respiratory Rate 18 18 16 Blood Pressure 192/126 H 175/113 H 176/90 H Blood Pressure Mean 148 133 118 Pulse Ox 97 93 99 Oxygen Delivery Method Room Air Room Air Positive well nourished, well developed and no apparent distress General Appearance ED: well developed HEENT Reports normocephalic and head/scalp atraumatic Mouth ED: Yes moist mucous membranes normal Eyes PERRL and EOMs intact bilaterally Eyes Narrative: No periorbital edema bilaterally. EOMs intact bilaterally. Neck full ROM and supple Chest Wall inspection of chest normal Resp normal respiratory effort and clear to auscultation bilaterally Cardio regular rate and regular rhythm Back/Spine normal ROM and normal to inspection Extremity normal to inspection and full ROM Neuro oriented x3, CN's II-XII intact bilaterally, moves all extremities, no focal motor deficits and no sensory deficits noted Sensorium / Orientation: awake and alert Psych mental status grossly normal and thought process normal Skin Skin Narrative: Acne vulgaris of the face, inflamed involvement of the left eyebrow without fluctuance or surrounding erythema. Rashes: No rashes noted <Dr. Owen Krueger MD - Last Filed: 02/11/25 14:52> Physical Exam Const Vital Signs: 02/11/25 10:55 02/11/25 11:09 02/11/25 11:17 Temperature 98 F 97.6 F L 98 F Temperature Source Temporal Oral Pulse Rate 81 67 80 Respiratory Rate 18 18 16 Blood Pressure 192/126 H 175/113 H 176/90 H Blood Pressure Mean 148 133 118 Pulse Ox 97 93 99 Oxygen Delivery Method Room Air Room Air MDM <ALEX Jara - Last Filed: 02/11/25 11:29> [facility] Narrative Medical decision making narrative: Patient presenting today due to concerns for an inflamed pimple above her left eyebrow. She is well-appearing and in no acute distress. Blood pressure elevated, however vitals otherwise are unremarkable. There is no significant abscess that needs an I&D. She does have an inflamed pimple but there is no surrounding erythema, no periorbital edema. I do not feel that antibiotics at this time are indicated. I did refer her to dermatology. She can continue the benzoyl peroxide and warm compresses. She will be discharged home in stable condition. I have personally performed a face to face assessment of the patient and have reviewed the ALEXX Note. I performed a substantive portion of the visit including all aspects of the following. My dumont findings include: History is remarkable for patient popping a pimple superior to the medial aspect of the left brow. There are some inflammation of the area. She denies fever, chills night sweats. She states she is never had any like this before. Exam is remarkable for subcutaneous abscess that she applied pressure and drained. There is no warmth or fluctuance. The area is slightly erythematous. There is some inflammation. Medical Decision Making patient with acne with some inflammation due to the fact that she popped one of the pimples. Since she is not febrile has no constant symptoms systemic or topical antibiotics not indicated. Treatment is compresses, warm. Other additions or changes: [None] <Dr. Owen Krueger MD - Last Filed: 02/11/25 14:52> [facility] Narrative Medical decision making narrative: I have personally performed a face to face assessment of the patient and have reviewed the ALEXX Note. I performed a substantive portion of the visit including all aspects of the following. My dumont findings include: History is remarkable for patient popping a pimple superior to the medial aspect of the left brow. There are some inflammation of the area. She denies fever, chills night sweats. She states she is never had any like this before. Exam is remarkable for subcutaneous abscess that she applied pressure and drained. There is no warmth or fluctuance. The area is slightly erythematous. There is some inflammation. Medical Decision Making patient with acne with some inflammation due to the fact that she popped one of the pimples. Since she is not febrile has no constant symptoms systemic or topical antibiotics not indicated. Treatment is compresses, warm. Other additions or changes: [None] Discharge Plan Triage Chief Complaint: Wound Check ED Midlevel Provider: Zee Pierce ED Provider: Owen Krueger Dx/Rx/DC Orders Clinical Impression: Acne vulgaris Instructions: ED Acne Prescriptions: No Action sulfamethoxazole-trimethoprim [Bactrim DS] 800-160 mg tablet 1 tab PO BID 10 Days Qty: 20 0RF Primary Care Provider: Ceferino Melendrez Referrals: [facility] [Outside] - 1 Week Ceferino Melendrez MD [Primary Care Provider] - Activity Restrictions/Additional Instructions: Apply warm compresses to the area, continue the benzoyl peroxide. Return for any worsening symptoms. Print Language: Arabic Disposition Disposition: Home, Self Care Discharge Date/Time: 02/11/25 11:19
[2025-02-11 11:09] VITALS: BP 175/113; PULSE 67; RESP 18; TEMP 36.4; O2SAT 93; BMI 32.4
[2025-02-11 11:17] VITALS: BP 176/90; PULSE 80; RESP 16; TEMP 36.6; O2SAT 99
== END 2025-02-11 11:19 | disposition home or self-care (01) ==
PROVIDERS: Emergency Provider Emergency Medicine; PCP Family Medicine; Visit Provider Emergency Medicine
DX: L70.0 Acne vulgaris (principal); Z87.891 Personal history of nicotine dependence
CPT/HCPCS: 99282

== ENCOUNTER 2025-03-19 16:04 | Emergency (ER) | payer MEDICAID, SELFPAY ==
[2025-03-19 16:06] VITALS: BP 159/117; BP 181/117; PULSE 102; RESP 19; TEMP 36.7; O2SAT 97; BMI 31.8
--- NOTE | 2025-03-19 16:59 | EKG12_ITS ---
Test Reason : CP Blood Pressure : */* mmHG Vent. Rate : 91 BPM Atrial Rate : 91 BPM P-R Int : 144 ms QRS Dur : 86 ms QT Int : 376 ms P-R-T Axes : 46 31 27 degrees QTcB Int : 462 ms Normal sinus rhythm Possible Left atrial enlargement Borderline ECG Confirmed by CAR RODRIGEZ, TONI ([id number]), metropolitan editor MIMI GAMEZ ([id number]) on 03/21/2025 11:49:49 AM Referred By: Confirmed By: TONI YOON MD
--- NOTE | 2025-03-19 17:01 | EDS_ITS ---
<Statement entered by Braden Mao DO - 03/19/25 20:41> Patient was seen and examined with physician resident assistant cna Ellen All components of the history and physical confirmed and agreed. History of present illness and physical exam: Patient is a 34-year-old female with past medical history hypertension, ADHD, anemia who presented to the emergency department for concern of elevated blood pressure. States that she was at work was not feeling well secondary to her upper respiratory infection symptoms and noted that she try to take Sudafed to relieve her symptoms. States that she did not take her blood pressure medication this morning. She states that after she took the Sudafed she noted that she felt like her blood pressure was elevated and noted that she had some m ild left-sided chest pressure with her elevated blood pressure but this quickly resolved. Patient denies any recent travels denies any history of blood clots. Review of systems: Agree with above Physical exam: Agree with above MDM: Patient is a 34-year-old female who presented to the emerged part with a chief complaint of elevated blood pressure and not taking her medication this morning. Patient will be given her home dose of medication here and be reevaluated. Patient EKG was reviewed showed sinus rhythm with a rate of 91 bpm. After blood pressure medication given and reevaluation her blood pressures improved to 151/87 she advised to refrain from using Sudafed and was advised to continue supportive care. She is advised to return with worsening symptoms or concerns otherwise she is to follow-up with her primary care physician outpatient setting. She is agreeable this plan all question concerns answered she was discharged home in stable condition. Final impression: Hypertension Disposition: Patient will be discharged home in stable condition Supervising attending attestation: Braden Mao D.O. [facility] History of Present Illness Chief Complaint: Hypertension Narrative Narrative: Patient presenting today due to concerns for elevated blood pressure. She repo rts that she was at work and was not feeling well due to her URI symptoms, she also had an episode of left-sided chest pressure that has resolved. She has a history of hypertension, she takes lisinopril/HCTZ but did not take it this morning. She did take Sudafed due to a URI that started yesterday. She reports her whole household has been sick with similar symptoms. She reports a mild headache that she has had off-and-on since yesterday. She denies blurred vision, nausea, vomiting, dizziness, and shortness of breath. She denies any cardiac history or history of blood clots or recent frances jody/trauma/immobilization. [facility] Medical History Hypertension UTI (urinary tract infection) Anemia ADHD Home Medications ?Medication ?Instructions ?Recorded ?Last Taken ?Type lisinopril 10 1 tab PO DAILY 03/19/25 Unkn own History mg-hydrochlorothiazide 12.5 mg tablet Allergy/AdvReac Type Severity Reaction Status Date / Time Iodine and Iodide Containing Allergy Itching Verified 02/11/25 10:58 Produc Surgical History History of tonsillectomy Social History Smoking Status: Former smoker ROS ROS ED Constitutional Constitutional ED: Denies chills or fever(s) Eyes Eyes: Denies blurry vision ENT ENT ED: Reports nasal congestion and sinus pressure Cardiovascular Cardiovascular: Denies chest pain or palpitations Respiratory/Chest Respiratory/Chest: Denies cough or dyspnea Gastrointestinal Gastrointestinal: Denies abdominal pain, nausea or vomiting Musculoskeletal Musculoskeletal: Denies arthralgias or myalgias Integumentary Denies rash Neurologic Neurologic: Denies weakness EXAM Physical Exam Const Vital Signs: 03/19/25 16:06 03/19/25 16:06 03/19/25 17:01 Temperature 98.0 F Temperature Source Oral Pulse Rate 102 H Respiratory Rate 19 H Respiratory Effort Short of Breath Respiratory Pattern Normal Blood Pressure 181/117 H 159/117 H Blood Pressure Mean 138 131 Pulse Ox 97 Oxygen Delivery Method Room Air 03/19/25 17:41 03/19/25 18:05 03/19/25 18:33 Temperature Temperature Source Pulse Rate 74 Respiratory Rate 17 Respiratory Effort Respiratory Pattern Blood Pressure 160/92 H 161/85 H 151/87 H Blood Pressure Mean 114 110 108 Pulse Ox 97 Oxygen Delivery Method Room Air 03/19/25 18:38 Temperature 98.0 F Temperature Source Pulse Rate 74 Respiratory Rate 17 Respiratory Effort Respiratory Pattern Blood Pressure 151/87 H Blood Pressure Mean 108 Pulse Ox 97 Oxygen Delivery Method Positive well nourished, well developed and no apparent distress General Appearance ED: well developed HEENT Reports normocephalic and head/scalp atraumatic Mouth ED: Yes moist mucous membranes normal Eyes PERRL and EOMs intact bilaterally Neck full ROM and supple Chest Wall inspection of chest normal Resp normal respiratory effort and clear to auscultation bilaterally Cardio regular rate and regular rhythm GI soft to palpation, non-tender, non-distended and no masses Back/Spine normal ROM and normal to inspection Extremity normal to inspection and full ROM Neuro oriented x3, CN's II-XII intact bilaterally, moves all extremities, no focal motor deficits and no sensory deficits noted Sensorium / Orientation: awake and alert Psych mental status grossly normal and thought process normal Skin no rashes or lesions noted and no wounds MDM MDM MDM Narrative Medical decision making narrative: Patient presenting today due to concerns for elevated blood pressure. She has a history of hypertension and did not take her lisinopril/HCTZ this morning. She also took Sudafed due to a URI that started yesterday. Aside from her cold symptoms she is feeling well, no chest pain or shortness of breath. Suspect her URI is viral in nature given her kids have been sick with similar symptoms. Blood pressure is elevated here, she will be given her home blood pressure medication. Blood pressure on reexamination has improved and is now 151/87, she is doing well on reexamination. Recommended she no longer take Sudafed given her hypertension history and take her blood pressure medication as prescribed. She has to follow-up with her PCP and will be discharged home in stable condition. EKG Initial EKG: Comments: 91 bpm, normal sinus rhythm, no ST elevation Discharge Plan Triage Chief Complaint: Hypertension ED Midlevel Provider: Zee Pierce ED Provider: Braden Mao Dx/Rx/DC Orders Clinical Impression: Hypertension, URI (upper respiratory infection) Instructions: Hypertension Dc, ED URI, Viral, No Abx (Adult) Prescriptions: No Action lisinopril-hydrochlorothiazide 10-12.5 mg tablet 1 tab PO DAILY Stand Alone Forms: ED Work / School Excuse Primary Care Provider: Ceferino Melendrez Referrals: Ceferino Melendrez MD [Primary Care Provider] - 5-7 Days Activity Restrictions/Additional Instructions: Follow-up with your PCP, take blood pressure medication as prescribed. Print Language: Sri Lankan Disposition Disposition: Home, Self Care Discharge Date/Time: 03/19/25 18:41
[2025-03-19] MEDS: Lisinopril 10 MG Tablet PO (17:26)
[2025-03-19] MEDS: hydroCHLOROthiazide 12.5mg 12.5 MG PO (17:26)
[2025-03-19 17:41] VITALS: BP 160/92
[2025-03-19 18:05] VITALS: BP 161/85; PULSE 74; RESP 17; O2SAT 97
[2025-03-19 18:33] VITALS: BP 151/87
[2025-03-19 18:38] VITALS: BP 151/87; PULSE 74; RESP 17; TEMP 36.7; O2SAT 97
== END 2025-03-19 18:41 | disposition home or self-care (01) ==
PROVIDERS: Emergency Provider Emergency Medicine; PCP Family Medicine; Visit Provider Emergency Medicine
DX: I10 Essential (primary) hypertension (principal); J06.9 Acute upper respiratory infection, unspecified; Z87.891 Personal history of nicotine dependence; Z79.899 Other long term (current) drug therapy
CPT/HCPCS: 93005; 99282; A4216

== ENCOUNTER 2025-10-14 19:57 | Emergency (ER) | payer SELFPAY ==
[2025-10-14 19:58] VITALS: TEMP 36; BMI 30.4
--- NOTE | 2025-10-14 20:16 | ED.RN ---
This nurse unable to get a full set of VS in triage. Patient actively vomiting, unable to hold still grabbing her back.
[2025-10-14 20:18] VITALS: BP 216/117; PULSE 71; RESP 16; O2SAT 100
--- NOTE | 2025-10-14 20:19 | CT_ITS ---
PROCEDURE: CT ABDOMEN/PELVIS WITHOUT CONTRAST 10/14/2025 REASON FOR EXAM: Left flank pain TECHNIQUE: Procedure Code: CTABDPEL Modality: CT Procedure: ABDOMEN/PELVIS WITHOUT CONT Noncontrast technique limits evaluation of the abdominal and pelvic viscera. Coronal and Sagittal reconstruction series were provided. One or more dose reduction techniques were used (e.g., Automated exposure control, adjustment of the mA and/or kV according to patient size, use of iterative reconstruction technique). RADIATION DOSE SUMMARY: CTDlvol: 10.62 mGy DLP: 538.71 mGycm COMPARISON: 01/29/2023 FINDINGS: Lung bases: Clear. Liver: Unremarkable. Gallbladder: Unremarkable. Spleen: Normal in size. Several punctate calcified granulomas. Pancreas: Unremarkable. Adrenals: Unremarkable. Kidneys: Unremarkable. No urolithiasis or hydroureteronephrosis on either side. Bladder: Unremarkable. No stone within the bladder. Reproductive Organs: Unremarkable appearance of the uterus and adnexae. Bowel: No evidence of obstruction or active inflammation. Normal appendix. Mild scattered distal colonic diverticulosis without evidence for active diverticulitis. Lymph nodes: No suspicious lymph node enlargement. Subcentimeter calcified mesenteric lymph nodes in the central abdomen, sequelae of a prior granulomatous process. Vasculature: Normal caliber abdominal aorta and IVC. Peritoneum / Retroperitoneum: No ascites or free air. Bones: Mild degenerative changes of the visualized spine. CT/Abdomen/Pelvis without Cont IMPRESSION: No acute or active inflammatory intra-abdominal pathology. No urinary tract calculi or hydroureteronephrosis on either side. Reading Location: [id number]
--- NOTE | 2025-10-14 20:20 | ED.RN ---
This RN heard yelling in the hallway, patient's family member found to be in the hallway yelling at nurses stating that patient is in distress and no one has looked at her. This RN apologies and states she has not been seen by the DR yet and that her nurse was with a critical patient. He continues yelling stating no one has taken her blood pressure. This RN goes to bedside to take vital signs while another nurses grabs items to start an IV. Family member yelling in hallway asking for this RN's name and title stating that I am "rude" and this place is "ridiculous" before storming out of the department. This RN apologizes to patient again and made sure she had her call light.
[2025-10-14] MEDS: 0.9% Normal Saline (1000mL) 1,000 ML 250 ML IV (20:47)
--- OUTSIDE RECORDS SUMMARY | 2025-10-14 21:22 | XMS RPT_ITS | CCD ---
Author Organization [facility] [employer] [facility] Care Team Providers Care Bus Aide Name Role Phone Unavailable Primary Care Provider Unavailverena e PHYSICIAN, NONE Primary Care Physician Unavailab arlen Melendrez MD, Dr. De La Vega Primary Care Provider [phone] Evans RODRIGEZ, Dr. Weaver Emergency Provider Unavailable Primary Care Provider UnavailOwen Kruger Attending Unavailable Ceferino Melendrez Primary Care Unavailable Markus Alas Attending Unavailable Care Physician, No Primary Primary Care Unava ilable Braden Mao Attending Unavailable Ceferino Melendrez Primary Care Unavailable Ceferino Melendrez Referring Unavailable Ceferino Melendrez Attending Unavailable Ceferino Melendrez Primary Care Unavailable KEVIN COHEN Attending Unavailable Allergies Allergy Classification Reported Allergen(s) Allergy Type Date of Onset Reaction(s) Facility (13 sources) Iodine; Translations: [iodine] Drug Allergy 02-07-2018 Itching [facility] (3 sources) Iodine Compounds Allergy to substance 11-30-2022 Itching [facility] (1 source) Iodine and Iodide Containing Produc Drug allergy (disorder) 02-11-2025 [facility] Repository Medications Current Medications Medication Drug Class(es) Dates Sig (Normalized) Sig (Original) amoxicillin 875 mg / clavulanate 125 mg oral tablet (1 source) Penicillin-class Antibacterial Start: 01-05-2024 End: 01-15-2024 take 1 tablet by mouth twice daily amoxicillin-clavulan ate potassium (AUGMENTIN) 875-125 mg per tablet Take 1 tablet by mouth two times a day for 10 days. 20 tablet 0 01/05/2024 01/15/2024 Active Comment on above: Take 1 tablet by denis th two times a day for 10 days. benzonatate 100 mg oral capsule (1 source) Non-narcotic Antitussive Start: 07-20-2024 End: 07-27-2024 benzonatate 100 mg oral capsule Dose : 100 mg = 1 cap(s), Oral, TID, PRN as needed for cough, X 7 day(s), # 21 cap(s), 0 Refill(s), 07/27/24 11:29:00 PM EDT Start Date: 07/20/24 Stop Date: 07/27/24 Status: Ordered cyclobenzaprine hydrochloride 10 mg oral tablet (10 sources) Muscle Relaxant Start: 11-25-2022 take 1 tablet by mouth once daily at bedtime cyclobenzaprine (FLEXERIL) 10 mg tablet Indications: Acute neck pain Take 1 tablet by mouth daily at bedtime. 3 tablet 11/25/2022 Active Start: 09-13-2021 take 10 mg by mouth three times daily Cyclobenzaprine Active 10 MG PO THREE TIMES A DAY September 12, 2021 11:00pm Comment on above: Take 1 tablet by denis th daily at bedtime. 21 day ethinyl estradiol 0.531054 mg/hr / etonogestrel 0.005 mg/hr vaginal system (13 sources) Progestin, Estrogen Start: 12-04-2019 End: 03-17-2024 Etonogestrel-Ethinyl Estradiol (NUVARING) 0.12-0.015 mg/24 hr vaginal ring Use 1 Each vaginally as directed. Insert vaginally and leave in place for 3 consecutive weeks, then remove for 1 week. 1 Each 2 03/17/2024 Active Comment on above: Use 1 Each vaginally as directed. Insert vaginally and leave in place for 3 consecutive weeks, then remove for 1 week. predniSONE 10 mg oral tablet (3 sources) Start: 05-31-2023 End: 06-09-2023 predniSONE (DELTASONE) 10 mg tablet Take 4 tabs daily for 3 days, then 2 tabs daily for 3 days, then 1 tab daily for 3 days with food. 21 tablet 0 05/31/2023 06/09/2023 Active Start: 11-30-2022 Prednisone Act harry MG November 30, 2022 12:00am Start: 11-25-2022 End: 11-29-2022 take 2 tablets by mouth once daily at mealtime predniSONE (DELTASONE) 20 mg tablet Indications: Acute neck pain Take 2 tablets by mouth once daily for 4 days. Take daily with food. 8 tablet 0 11/25/2022 11/29/2022 Active Comment on above: Take 2 tablets by mo ut once daily for 4 days. Take daily with food. Take 4 tabs daily fo r 3 days, then 2 tabs daily for 3 days, then 1 tab daily for 3 days with food. sulfamethoxazole 800 mg / trimethoprim 160 mg oral tablet (2 sources) Dihydrofolate Reductase Inhibitor Antibacterial, Sulfonamide Antimicrobial Start: 01-29-2023 Sulfamethoxazole-T rimethoprim (Bactrim Ds) 800-160 mg tablet Active 1 {tbl} PO TWICE A DAY 10 09January 29, 2023 1:00am Completed/Discontinued Medications Medication Drug Class(es) Dates Sig (Normalized) Sig (Original) aspirin 81 mg chewable tablet (3 sources) Platelet Aggregation Inhibitor, Nonsteroidal Anti-inflammatory Drug Start: 07-03-2018 End: 09-17-2018 take 1 tablet by mouth once daily Aspirin 81 MG Tab.Chew Discontinued 81 mg PO DAILY@0800 July 03, 2018 12:00am September 17, 2018 8:21am famotidine 20 mg oral tablet (3 sources) Histamine-2 Receptor Antagonist Start: 07-03-2018 End: 09-17-2018 take 1 tablet by mouth once daily Famotidine (Pepcid) 20 MG tablet Discontinued 20 mg PO DAILY July 03, 2018 12:00am September 17, 2018 8:21am ferrous sulfate 325 mg oral tablet (3 sources) Start: 07-04-2018 End: 09-15-2018 take 1 tablet by mouth twice daily at mealtime Ferrous Sulfate 325 MG tablet Discontinued 325 mg PO TWICE DAILY WITH MEALS 60 July 04, 2018 12:00am September 15, 2018 2:34pm nitrofurantoin 100 mg oral tablet (3 sources) Nitrofuran Antibacterial Start: 09-15-2018 End: 09-17-2018 Macrobid Discontinued 100 mg PO TWICE A DAY September 15, 2018 12:00am September 17, 2018 8:20am states bottle says to take it BID but pt only taking once daily [id number] s (ONE-A-DAY WOMEN'S 1) 28 mg iron- 800 mcg-235 mg cap (1 source) Start: 06-02-2018 [id number] eg3s (ONE-A-DAY WOMEN'S 1) 28 mg iron- 800 mcg-235 mg cap Take 1 capsule by mouth once daily. 0 06/02/2018 Active Comment on above: Take 1 capsule by mo [facility] once daily. sertraline 50 mg oral tablet (1 source) Serotonin Reuptake Inhibitor Start: 11-04-2018 take 1 tablet by mouth once daily sertraline (ZOLOFT) 50 mg tablet Take 1 tablet by mouth once daily. 30 tablet 2 11/04/2018 Active Comment on above: Take 1 tablet by denis once daily. Problems Active Problems Problem Classification Problem Date Documented Date Episodic/Chronic Abdominal pain (1 source) Right flank pain; Translations: [Unspecified abdominal pain] 02-06-2023 Episodic Allergic reactions (1 source) Irritant contact dermatitis due to cosmetic; Translations: [Irritant contact dermatitis due to cosmetics] 05-31-2023 Episodic Anxiety disorders (11 sources) Anxiety; Translations: [Anxiety disorder, unspecified] Onset: 06-02-2018 06-02-2018 Chronic Attention-deficit, conduct, and disruptive behavior disorders (11 sources) Attention-deficit hyperactivity disorder, unspecified type; Translations: [Attention deficit disorder with hyperactivity] 01-04-2006 Chronic Disorders of teeth and jaw (1 source) Toothache; Translations: [Other specified disorders of teeth and supporting structures] 01-05-2024 Episodic Essential hypertension (1 source) Essential (primary) hypertension; Translations: [Essential (primary) hypertension] Onset: 03-22-2025 Chronic Genitourinary symptoms and ill-defined conditions (1 source) Incontinence; Translations: [Mixed incontinence] Chronic Genitourinary symptoms and ill-defined conditions (1 source) Urgent desire to urinate; Translations: [Urgency of urination] Episodic Immunizations and screening for infectious disease (1 source) Patient encounter status; Translations: [Encounter for screening for human papillomavirus (HPV)] Episodic Nonspecific chest pain (2 sources) Left sided chest pain; Translations: [Chest pain, unspecified] Onset: 03-19-2025 03-19-2025 Episodic Other circulatory disease (1 source) Elevated blood pressure; Translations: [Elevated blood-pressure reading, without diagnosis of hypertension] 02-06-2023 Episodic Other lower respiratory disease (2 sources) Dyspnea; Translations: [Shortness of breath] 07-19-2024 Episodic Other lower respiratory disease (1 source) Shortness of breath; Translations: [SOB (shortness of breath)] Onset: 03-19-2025 Episodic Other screening for suspected conditions (not mental disorders or infectious disease) (1 source) Cancer cervix screening status; Translations: [Encounter for screening for malignant neoplasm of cervix] Episodic Other skin disorders (1 source) Acne vulgaris; Translations: [Acne vulgaris] 02-11-2025 Episodic Other skin disorders (1 source) Acne vulgaris; Translations: [Acne vulgaris] Onset: 02-16-2025 Episodic Sprains and strains (9 sources) Strain of thoracic region; Translations: [Strain of muscle and tendon of unspecified wall of thorax, initial encounter] 02-23-2019 Episodic Urinary tract infections (2 sources) Urinary tract infectious disease; Translations: [Urinary tract infection, site not specified] 01-29-2023 Episodic Past or Other Problems Problem Classification Problem Date Documented Date Episodic/Chronic Diabetes or abnormal glucose tolerance complicating ; childbirth; or the puerperium (5 sources) Impaired glucose tolerance in ; Translations: [Abnormal glucose complicating ] Onset: 07-06-2018 Resolved: 11-04-2018 11-04-2018 Episodic Malaise and fatigue (5 sources) Malaise and fatigue; Translations: [Other malaise] Onset: 07-13-2007 Resolved: 02-22-2018 02-22-2018 Episodic Open wounds of extremities (5 sources) Open wound of lower limb; Translations: [Unspecified open wound, unspecified knee, initial encounter] Onset: 06-08-2006 Resolved: 06-30-2012 06-30-2012 Episodic Other circulatory disease (6 sources) Elevated blood-pressure reading without diagnosis of hypertension; Translations: [Elevated blood-pressure reading, without diagnosis of hypertension] Onset: 07-13-2007 Resolved: 06-30-2012 06-30-2012 Episodic Other complications of (5 sources) Anemia of ; Translations: [Anemia complicating , third trimester] Onset: 07-06-2018 Resolved: 11-04-2018 11-04-2018 Chronic Other complications of (5 sources) High risk ; Translations: [Supervision of high risk , unspecified, unspecified trimester] Onset: 08-30-2006 Resolved: 06-30-2012 06-30-2012 Episodic Other complications of (5 sources) Urinary tract infection in ; Translations: [Unspecified infection of urinary tract in , unspecified trimester] Onset: 05-17-2017 Resolved: 11-04-2018 11-04-2018 Episodic Other complications of (5 sources) Maternal tobacco use; Translations: [Smoking (tobacco) complicating , unspecified trimester] Onset: 05-27-2017 Resolved: 11-04-2018 11-04-2018 Episodic Other complications of (5 sources) RhD negative; Translations: [Other specified related conditions, unspecified trimester] Onset: 03-23-2018 Resolved: 11-04-2018 11-04-2018 Episodic Other injuries and conditions due to external causes (5 sources) Finding of urine substance level; Translations: [Elevated urine levels of drugs, medicaments and biological substances] Onset: 02-23-2018 Resolved: 11-04-2018 11-04-2018 Episodic Other and delivery including normal (5 sources) Normal in primigravida; Translations: [Encounter for supervision of normal first , unspecified trimester] Onset: 09-07-2006 Resolved: 06-30-2012 06-30-2012 Episodic Other upper respiratory infections (1 source) Acute upper respiratory infection, unspecified; Translations: [Acute upper respiratory infection, unspecified] Onset: 08-09-2024 Episodic Residual codes; unclassified (11 sources) History of pre-eclampsia; Translations: [Personal history of other complications of , childbirth and the puerperium] Onset: 05-27-2017 03-16-2018 Episodic Spondylosis; intervertebral disc disorders; other back problems (6 sources) Neck pain; Translations: [Cervicalgia] Onset: 07-13-2007 Resolved: 02-22-2018 Episodic Viral infection (6 sources) Verruca vulgaris; Translations: [Viral wart, unspecified] Onset: 08-09-2008 Resolved: 06-30-2012 06-30-2012 Episodic Results Test Name Value Interpretation Reference Range Facility 12 Lead EKGon 03-19-2025 12 Lead EKG [facility] [address] [place] [address] 12 Lead EKG 03/19/25 1615 MR#: [id number] Acct: [id number] Name: KAPIL SALMON Rep #: [id number] : 1990 34 From: Danii Bazan MD Attending Dr: Status: DEP ER Ordering Dr: Zee Pierce Date: 03/19/25 Location: ED Sex: F C Admitted: Test Reason : CP Blood Pressure : */* mmHG Vent. Rate : 91 BPM Atrial Rate : 91 BPM P-R Int : 144 ms QRS Dur : 86 ms QT Int : 376 ms P-R-T Axes : 46 31 27 degrees QTcB Int : 462 ms Normal sinus rhythm Possible Left atrial enlargement Borderline ECG Confirmed by CAR RODRIGEZ, TONI ([id number]), commercial production editor MIMI GAMEZ ([id number]) on 03/21/2025 11:49:49 AM Referred By: Confirmed By: TONI BAZAN MD 03/21/25 1149 Date Danii Bazan MD CC: Dr. Ceferino Melendrez MD; Dr. Braden Mao, DO; ALEX Jara [facility]igned [facility] Office [facility] ([facility] ---- KAPIL SALMON ([id number]) 1990 F Date Time Provider Department 03/19/25 4:45 PM KEVIN COHEN [facility] During your visit today, we recorded the following information about you: Kevin Cohen MD 03/19/2025 4:23 PM Addendum Express Care Triage Note: Patient presents to the express care with heart and BP related concerns. She says she has been ill and took Sudafed. To avoid medication interaction, she held lisinopril today. At work she had been feeling short of breath and near syncopal. She feels her heart is "racy" and has pain in her left upper chest. She does not have a cough or fever. Patient is offered to be seen and have blood pressure evaluated with likely referral to the emergency room. She chooses to proceed directly to the [place] ER for evaluation. Declines EMS transport. Allergies As of Date: 03/19/2025 Noted Allergy Reaction IODINE 02/07/2018 9 - Itching Date Reviewed: 07/19/2024 Reviewed by: Rommel Masterson APRN.M[employer] WIFE - Fully Assessed Reason for Visit: Chest Pain [21] Primary Visit Diagnosis:Left-side d chest pain [R07.9] Other Visit Diagnosis:SOB (shortness of breath) [R06.02] Prescriptions as of 03/19/2025 - Etonogestrel-Ethiny l Estradiol (NUVARING) 0.12-0.015 mg/24 hr vaginal ring Use 1 Each vaginally as directed. Insert vaginally and leave in place for 3 consecutive weeks, then remove for 1 week. - cyclobenzaprine (FLEXERIL) 10 mg tablet Take 1 tablet by mouth daily at bedtime. Problem List As Of Date 03/19/2025 Noted Resolved ATTN DEFICIT W HYPERACT [F90.9] Open wound of knee, leg (except thigh), and ank*06/08/2006 06/30/2012 Unspecified high-risk [O09.90] 08/30/2006 06/30/2012 Supervision of normal first [Z34.00] 09/07/2006 06/30/2012 Elevated blood pressure reading without diagnos*07/13/2007 06/30/2012 PAIN BACK, LOW [M54.50] 07/13/2007 02/22/2018 Other malaise and fatigue [R53.81, R53.83] 07/13/2007 02/22/2018 Viral warts, unspecified [B07.9] 08/09/2008 06/30/2012 UTI (urinary tract infection) in , ant*05/17/2017 11/04/2018 Tobacco use during , antepartum [O99.3*05/27/2017 11/04/2018 History of pre-eclampsia [Z87.59] 05/27/2017 Patient requested diagnostic testing [Z01.89] 05/27/2017 11/04/2018 Positive urine drug screen [R82.5] 02/23/2018 11/04/2018 Rh negative status during [O26.899, Z*03/23/2018 11/04/2018 Anxiety [F41.9] 06/02/2018 Anemia during in third trimester [O99*07/06/2018 11/04/2018 Abnormal glucose in , antepartum [O99.*07/06/2018 11/04/2018 Encounter Status:Closed by KEVIN COHEN on 03/19/25 Normal [facility] Emergency Department Summary on 03-19-2025 Emergency Department Summary [facility] Medical Records Department [address] [place] [address] Emergency Department Summary 03/19/25 MR#: [id number] Acct: [id number] Name: KAPIL SALMON Rep #: [id number] : 1990 34 From: Zee JOHNSON PCP: Dr. Ceferino Melendrez MD Status:DEP ER Location: ED Patient was seen and examined with physician dairy and food laboratory assistant Ellen All components of the history and physical confirmed and agreed. History of present illness and physical exam: Patient is a 34-year-old female with past medical history hypertension, ADHD, anemia who presented to the emergency department for concern of elevated blood pressure. States that she was at work was not feeling well secondary to her upper respiratory infection symptoms and noted that she try to take Sudafed to relieve her symptoms. States that she did not take her blood pressure medication this morning. She states that after she took the Sudafed she noted that she felt like her blood pressure was elevated and noted that she had some mild left-sided chest pressure with her elevated blood pressure but this quickly resolved. Patient denies any recent travels denies any history of blood clots. Review of systems: Agree with above Physical exam: Agree with above MDM: Patient is a 34-year-old female who presented to the emerged part with a chief complaint of elevated blood pressure and not taking her medication this morning. Patient will be given her home dose of medication here and be reevaluated. Patient EKG was reviewed showed sinus rhythm with a rate of 91 bpm. After blood pressure medication given and reevaluation her blood pressures improved to 151/87 she advised to refrain from using Sudafed and was advised to continue supportive care. She is advised to return with worsening symptoms or concerns otherwise she is to follow-up with her primary care physician outpatient setting. She is agreeable this plan all question concerns answered she was discharged home in stable condition. Final impression: Hypertension Disposition: Patient will be discharged home in stable condition Supervising attending attestation: Braden GAMBOA History of Present Illness Chief Complaint: Hypertension Narrative Narrative: Patient presenting today due to concerns for elevated blood pressure. She reports that she was at work and was not feeling well due to her URI symptoms, she also had an episode of left-sided chest pressure that has resolved. She has a history of hypertension, she takes lisinopril/HCTZ but did not take it this morning. She did take Sudafed due to a URI that started yesterday. She reports her whole household has been sick with similar symptoms. She reports a mild headache that she has had off-and-on since yesterday. She denies blurred vision, nausea, vomiting, dizziness, and shortness of breath. She denies any cardiac history or history of blood clots or recent surgery/trauma/immo bilization. [facility] Medical History Hypertension UTI (urinary tract infection) Anemia ADHD Home Medications ???Medication ???Instructions ???Recorded ???Last Taken ???Type lisinopril 10 1 tab PO DAILY 03/19/25 Unknown Hi story mg-hydrochlorothiaz bruna 12.5 mg tablet Allergy/AdvReac Type Severity Reaction Status Date / Time Iodine and Iodide Containing Allergy Itching Verified 02/11/25 10:58 Produc Surgical History History of tonsillectomy Social History Smoking Status: Former smoker ROS ROS ED Constitutional Constitutional ED: Denies chills or fever(s) Eyes Eyes: Denies blurry vision ENT ENT ED: Reports nasal congestion and sinus pressure Cardiovascular Cardiovascular: Denies chest pain or palpitations Respiratory/Chest Respiratory/Chest: Denies cough or dyspnea Gastrointestinal Gastrointestinal: Denies abdominal pain, nausea or vomiting Musculoskeletal Musculoskeletal: Denies arthralgias or myalgias Integumentary Denies rash Neurologic Neurologic: Denies weakness EXAM Physical Exam Const Vital Signs: 03/19/25 16:06 03/19/25 16:06 03/19/25 17:01 Temperature 98.0 F Temperature Source Oral Pulse Rate 102 H Respiratory Rate 19 H Respiratory Effort Short of Breath Respiratory Pattern Normal Blood Pressure 181/117 H 159/117 H Blood Pressure Mean 138 131 Pulse Ox 97 Oxygen Delivery Method Room Air 03/19/25 17:41 03/19/25 18:05 03/19/25 18:33 Temperature Temperature Source Pulse Rate 74 Respiratory Rate 17 Respiratory Effort Respiratory Pattern Blood Pressure 160/92 H 161/85 H 151/87 H Blood Pressure Mean 114 110 108 (more content not included)... Normal [facility] Emergency Department Summary on 02-11-2025 Emergency Department Summary [facility] Medical Records Department [address] [place] [address] Emergency Department Summary 02/11/25 MR#: [id number] Acct: [id number] Name: KAPIL SALMON Rep #: [id number] : 1990 34 From: Zee JOHNSON PCP: Dr. Ceferino Melendrez MD Status:DEP ER Location: ED HPI History of Present Illness Chief Complaint: Wound Check Narrative Narrative: Patient presenting today due to concerns for acne to her face. She reports that over the last year she has had acne. She does put benzyl peroxide and acne patches on the area. Last night, she was trying to pop a pimple above her left eyebrow in the shower and this morning it appeared inflamed, prompting her to come in for evaluation. She denies fevers, chills, nausea, vomiting. She denies any chronic medical conditions. [facility] Medical History UTI (urinary tract infection) Anemia ADHD Home Medications ???Medication ???Instructions ???Recorded ???Last Taken ???Type sulfamethoxazole 800 1 tab PO BID 10 days #20 tabs 01/20 Unknown Rx mg-trimethoprim 160 mg tablet (Bactrim DS) Allergy/AdvReac Type Severity Reaction Status Date / Time Iodine and Iodide Containing Allergy Itching Verified 02/11/25 10:58 Produc Surgical History History of tonsillectomy Social History Smoking Status: Former smoker ROS ROS ED Constitutional Constitutional ED: Denies chills or fever(s) Cardiovascular Cardiovascular: Denies chest pain Respiratory/Chest Respiratory/Chest: Denies dyspnea Gastrointestinal Gastrointestinal: Denies abdominal pain, nausea or vomiting Musculoskeletal Musculoskeletal: Denies arthralgias or myalgias Integumentary Reports other Details: Facial acne ; Denies abscess or rash Neurologic Neurologic: Denies weakness EXAM Physical Exam Const Vital Signs: 02/11/25 10:55 02/11/25 11:09 02/11/25 11:17 Temperature 98 F 97.6 F L 98 F Temperature Source Temporal Oral Pulse Rate 81 67 80 Respiratory Rate 18 18 16 Blood Pressure 192/126 H 175/113 H 176/90 H Blood Pressure Mean 148 133 118 Pulse Ox 97 93 99 Oxygen Delivery Method Room Air Room Air Positive well nourished, well developed and no apparent distress General Appearance ED: well developed HEENT Reports normocephalic and head/scalp atraumatic Mouth ED: Yes moist mucous membranes normal Eyes PERRL and EOMs intact bilaterally Eyes Narrative: No periorbital edema bilaterally. EOMs intact bilaterally. Neck full ROM and supple Chest Wall inspection of chest normal Resp normal respiratory effort and clear to auscultation bilaterally Cardio regular rate and regular rhythm Back/Spine normal ROM and normal to inspection Extremity normal to inspection and full ROM Neuro oriented x3, CN's II-XII intact bilaterally, moves all extremities, no focal motor deficits and no sensory deficits noted Sensorium / Orientation: awake and alert Psych mental status grossly normal and thought process normal Skin Skin Narrative: Acne vulgaris of the face, inflamed involvement of the left eyebrow without fluctuance or surrounding erythema. Rashes: No rashes noted Physical Exam Const Vital Signs: 02/11/25 10:55 02/11/25 11:09 02/11/25 11:17 Temperature 98 F 97.6 F L 98 F Temperature Source Temporal Oral Pulse Rate 81 67 80 Respiratory Rate 18 18 16 Blood Pressure 192/126 H 175/113 H 176/90 H Blood Pressure Mean 148 133 118 Pulse Ox 97 93 99 Oxygen Delivery Method Room Air Room Air MDM MDM MDM Narrative Medical decision making narrative: Patient presenting today due to concerns for an inflamed pimple above her left eyebrow. She is well-appearing and in no acute distress. Blood pressure elevated, however vitals otherwise are unremarkable. There is no significant abscess that needs an I D. She does have an inflamed pimple but there is no surrounding erythema, no periorbital edema. I do not feel that antibiotics at this time are indicated. I did refer her to dermatology. She can continue the benzoyl peroxide and warm compresses. She will be discharged home in stable condition. I have personally performed a face to face assessment of the patient and have reviewed the ALEXX Note. I performed a substantive portion of the visit including all aspects of the following. My dumont findings include: History is remarkable for patient popping a pimple superior to the medial aspect of the left brow. There are some inflammation of the area. She denies fever, chills night sweats. She states she is never had any like this before. Exam is (more content not included)... Normal [facility] Basic Metabolic Profile (BMP )on 08-10-2024 BUN/CRE 25.6 RATIO High 10-20 [facility] Comment on above: Performed By: #### L 500.2500, L500.4100 ####[facility] [address] [place], [address] CA,Total 9.0 mg/dL Normal 8.5-10.1 [facility] Comment on above: Performed By: #### L 500.2500, L500.4100 ####[facility] [address] [place], [address] Chloride [Moles/Vol] 107 mmol/L Normal 98-107 [facility] Comment on above: Performed By: #### L 500.2500, L500.4100 ####[facility] [address] [place], [address] CO2 [Moles/Vol] 25.0 mmol/L Normal 21.0-32.0 [facility] Comment on above: Performed By: #### L 500.2500, L500.4100 ####[facility] [address] [place], [address] Creatinine [Mass/Vol] 0.70 mg/dL Normal 0.55-1.02 [facility] Comment on above: Result Comment: The validity of the calculated GFR GFRAA in patients over 70 years has not been determined. Clinical correlation is essential. Performed By: #### L 500.2500, L500.4100 ####[facility] [address] [place], [address] EST GFR - AA 123 mL/min Normal >60 [facility] Comment on above: Result Comment: Afri can Cameroonian GFR Calc Performed By: #### L 500.2500, L500.4100 ####[facility] [address] [place], [address] GAP 7 Normal 5-15 [facility] Comment on above: Performed By: #### L 500.2500, L500.4100 ####[facility] [address] [place], [address] GFR/1.73 sq M.predicted among non-blacks MDRD (S/P/Bld) [Vol rate/Area] 102 mL/min/{1.73_m2} Normal >60 [facility] Comment on above: Result Comment: Non- GFR Calc Performed By: #### L 500.2500, L500.4100 ####[facility] [address] [place], [address] Glucose [Mass/Vol] 85 mg/dL Normal 74-106 [facility] Comment on above: Performed By: #### L 500.2500, L500.4100 ####[facility] [address] [place], [address] Potassium [Moles/Vol] 3.8 mmol/L Normal 3.5-5.1 [facility] Comment on above: Performed By: #### L 500.2500, L500.4100 ####[facility] [address] [place], [address] Sodium [Moles/Vol] 139 mmol/L Normal 136-145 [facility] Comment on above: Performed By: #### L 500.2500, L500.4100 ####[facility] [address] [place], [address] Urea nitrogen [Mass/Vol] 18 mg/dL Normal 7-18 [facility] Comment on above: Performed By: #### L 500.2500, L500.4100 ####[facility] [address] [place], [address] Lipid Profileon 08-10-2024 Cholesterol [Mass/Vol] 167 mg/dL Normal 200 [facility] Comment on above: Result Comment: <200 mg/dL Desirable 200-240 mg/dL Borderline >240 mg/dL High Risk Performed By: #### L 500.2500, L500.4100 ####[facility] [address] [place], [address] Cholesterol in HDL [Mass/Vol] 56 mg/dL Normal [facility] Comment on above: Result Comment: The drugs N-Acetylcysteine and Metamizole may falsely depress this assay. Reference Range HDL <40 mg/dL Low HDL Cholesterol HDL >or= 60 mg/dL High HDL Cholesterol Performed By: #### L 500.2500, L500.4100 ####[facility] [address] [place], [address] Cholesterol in LDL [Mass/Vol] 80 mg/dL Normal 0-130 [facility] Comment on above: Performed By: #### L 500.2500, L500.4100 ####[facility] [address] [place], [address] Cholesterol in VLDL [Mass/Vol] 31 mg/dL Normal 5-40 [facility] Comment on above: Performed By: #### L 500.2500, L500.4100 ####[facility] [address] [place], [address] Triglyceride [Mass/Vol] 157 mg/dL Normal [facility] Comment on above: Result Comment: The drugs N-Acetylcysteine and Metamizole may falsely depress this assay. Serum Triglycerides Reference Interval Normal <150 mg/dL Borderline high 150 - 199 mg/dL High 200 - 499 mg/dL Very High > or = 500 mg/dL Performed By: #### L 500.2500, L500.4100 ####[facility] [address] [place], [address] CNPNon 07-20-2024 [facility] Telephone ([facility]) ---- KAPIL SALMON ([id number]) 1990 F Date Time Provider Department 07/20/24 RACHELLE VASQUEZ [facility] During your visit today, we recorded the following information about you: Allergies As of Date: 07/20/2024 Noted Allergy Reaction IODINE 02/07/2018 9 - Itching Date Reviewed: 07/19/2024 Reviewed by: Rommel Masterson APRN.MID WIFE - Fully Assessed Prescriptions as of 07/20/2024 - Etonogestrel-Ethiny l Estradiol (NUVARING) 0.12-0.015 mg/24 hr vaginal ring Use 1 Each vaginally as directed. Insert vaginally and leave in place for 3 consecutive weeks, then remove for 1 week. - cyclobenzaprine (FLEXERIL) 10 mg tablet Take 1 tablet by mouth daily at bedtime. Problem List As Of Date 07/20/2024 Noted Resolved ATTN DEFICIT W HYPERACT [F90.9] Open wound of knee, leg (except thigh), and ank*06/08/2006 06/30/2012 Unspecified high-risk [O09.90] 08/30/2006 06/30/2012 Supervision of normal first [Z34.00] 09/07/2006 06/30/2012 Elevated blood pressure reading without diagnos*07/13/2007 06/30/2012 PAIN BACK, LOW [M54.50] 07/13/2007 02/22/2018 Other malaise and fatigue [R53.81, R53.83] 07/13/2007 02/22/2018 Viral warts, unspecified [B07.9] 08/09/2008 06/30/2012 UTI (urinary tract infection) in , ant*05/17/2017 11/04/2018 Tobacco use during , antepartum [O99.3*05/27/2017 11/04/2018 History of pre-eclampsia [Z87.59] 05/27/2017 Patient requested diagnostic testing [Z01.89] 05/27/2017 11/04/2018 Positive urine drug screen [R82.5] 02/23/2018 11/04/2018 Rh negative status during [O26.899, Z*03/23/2018 11/04/2018 Anxiety [F41.9] 06/02/2018 Anemia during in third trimester [O99*07/06/2018 11/04/2018 Abnormal glucose in , antepartum [O99.*07/06/2018 11/04/2018 Encounter Status:Closed by RACHELLE VASQUEZ on 07/20/24 Normal [facility] 12 Lead EKGon 07-19-2024 12 Lead EKG [facility] [address] [place] [address] 12 Lead EKG 07/19/24 1105 MR#: [id number] Acct: [id number] Name: KAPIL SALMON Rep #: [id number] : 1990 33 From: Chester Dickerson MD Attending Dr: Status: DEP ER Ordering Dr: Markus Alas DO Date: 07/19/24 Location: ED Sex: F C Admitted: Test Reason : HIGH BP Blood Pressure : / mmHG Vent. Rate : 077 BPM Atrial Rate : 077 BPM P-R Int : 156 ms QRS Dur : 090 ms QT Int : 428 ms P-R-T Axes : 037 047 037 degrees QTc Int : 484 ms Normal sinus rhythm Prolonged QT Abnormal ECG Confirmed by Chester Dickerson ([id number]), commercial production editor DEVYN BARBOUR ([id number]) on 07/20/2024 2:04:13 PM Referred By: Confirmed By:Chester Dickerson 07/20/24 1404 Date Chester Dickerson MD CC: Dr. Mrakus Alas, DO; No Primary Care Physician Signed Normal [facility] Basic Metabolic Profile (BMP )on 07-19-2024 BUN/CRE 17.3 RATIO Normal 10-20 [facility] Comment on above: Order Comment: 'TROP ' Serial specimen #1, #2 or #3: 1 Performed By: #### L 501.4020, L500.2500, L100.0100 #### [facility] [address] [place], [address] CA,Total 8.5 mg/dL Normal 8.5-10.1 [facility] Comment on above: Order Comment: 'TROP ' Serial specimen #1, #2 or #3: 1 Performed By: #### L 501.4020, L500.2500, L100.0100 #### [facility] [address] [place], [address] Chloride [Moles/Vol] 108 mmol/L High 98-107 [facility] Comment on above: Order Comment: 'TROP ' Serial specimen #1, #2 or #3: 1 Performed By: #### L 501.4020, L500.2500, L100.0100 #### [facility] [address] [place], [address] CO2 [Moles/Vol] 27.0 mmol/L Normal 21.0-32.0 [facility] Comment on above: Order Comment: 'TROP ' Serial specimen #1, #2 or #3: 1 Performed By: #### L 501.4020, L500.2500, L100.0100 #### [facility] [address] [place], [address] Creatinine [Mass/Vol] 0.75 mg/dL Normal 0.55-1.02 [facility] Comment on above: Order Comment: 'TROP ' Serial specimen #1, #2 or #3: 1 Result Comment: The validity of the calculated GFR GFRAA in patients over 70 years has not been determined. Clinical correlation is essential. Performed By: #### L 501.4020, L500.2500, L100.0100 #### [facility] [address] [place], [address] ECRCL 123.26 ml/min Normal [facility] Comment on above: Order Comment: 'TROP ' Serial specimen #1, #2 or #3: 1 Performed By: #### L 501.4020, L500.2500, L100.0100 #### [facility] [address] [place], [address] EST GFR - AA 114 mL/min Normal >60 [facility] Comment on above: Order Comment: 'TROP ' Serial specimen #1, #2 or #3: 1 Result Comment: Afri can Cameroonian GFR Calc Performed By: #### L 501.4020, L500.2500, L100.0100 #### [facility] [address] [place], [address] GAP 4 Low 5-15 [facility] Comment on above: Order Comment: 'TROP ' Serial specimen #1, #2 or #3: 1 Performed By: #### L 501.4020, L500.2500, L100.0100 #### [facility] [address] [place], [address] GFR/1.73 sq M.predicted among non-blacks MDRD (S/P/Bld) [Vol rate/Area] 94 mL/min/{1.73_m2} Normal >60 [facility] Comment on above: Order Comment: 'TROP ' Serial specimen #1, #2 or #3: 1 Result Comment: Non- GFR Calc Performed By: #### L 501.4020, L500.2500, L100.0100 #### [facility] [address] [place], [address] Glucose [Mass/Vol] 95 mg/dL Normal 74-106 [facility] Comment on above: Order Comment: 'TROP ' Serial specimen #1, #2 or #3: 1 Performed By: #### L 501.4020, L500.2500, L100.0100 #### [facility] [address] [place], [address] Potassium [Moles/Vol] 3.3 mmol/L Low 3.5-5.1 [facility] Comment on above: Order Comment: 'TROP ' Serial specimen #1, #2 or #3: 1 Performed By: #### L 501.4020, L500.2500, L100.0100 #### [facility] [address] [place], [address] Sodium [Moles/Vol] 139 mmol/L Normal 136-145 [facility] Comment on above: Order Comment: 'TROP ' Serial specimen #1, #2 or #3: 1 Performed By: #### L 501.4020, L500.2500, L100.0100 #### [facility] [address] [place], [address] Urea nitrogen [Mass/Vol] 13 mg/dL Normal 7-18 [facility] Comment on above: Order Comment: 'TROP ' Serial specimen #1, #2 or #3: 1 Performed By: #### L 501.4020, L500.2500, L100.0100 #### [facility] [address] [place], [address] CBC W/Diff, Automatedon 06-23 Absolute Lymph 1.50 X10 3/uL Normal 0.83-4.51 [facility] Comment on above: Performed By: #### L 501.4020, L500.2500, L100.0100 #### [facility] [address] [place], [address] Absolute Neut 8.2 X10 3/uL High 2.0-7.7 [facility] Comment on above: Performed By: #### L 501.4020, L500.2500, L100.0100 #### [facility] [address] [place], [address] Basophils/100 WBC (Bld) 0.4 % Normal 0-1 [facility] Comment on above: Performed By: #### L 501.4020, L500.2500, L100.0100 #### [facility] [address] [place], [address] Eosinophils/100 WBC (Bld) 1.4 % Normal 0-5 [facility] Comment on above: Performed By: #### L 501.4020, L500.2500, L100.0100 #### [facility] [address] [place], [address] Erythrocyte distribution width (RBC) [Ratio] 13.8 % Normal 11.6-14.6 [facility] Comment on above: Performed By: #### L 501.4020, L500.2500, L100.0100 #### [facility] [address] [place], [address] Hematocrit (Bld) [Volume fraction] 39.2 % Normal 37-47 [facility] Comment on above: Performed By: #### L 501.4020, L500.2500, L100.0100 #### [facility] [address] [place], [address] Hemoglobin (Bld) [Mass/Vol] 12.5 g/dL Normal 12.0-15.0 [facility] Comment on above: Performed By: #### L 501.4020, L500.2500, L100.0100 #### [facility] [address] [place], [address] IG% 0.500 Normal 0.0-0.9 [facility] Comment on above: Result Comment: IG% - Immature Granulocytes (promyelocytes, myelocytes and metamyelocytes) > 1% indicates that a LEFT SHIFT is Present. Performed By: #### L 501.4020, L500.2500, L100.0100 #### [facility] [address] [place], [address] Lymphocytes/100 WBC (Bld) 13.8 % Low 19-41 [facility] Comment on above: Performed By: #### L 501.4020, L500.2500, L100.0100 #### [facility] [address] [place], [address] MCH (RBC) [Entitic mass] 26.1 pg Low 27.0-32.0 [facility] Comment on above: Performed By: #### L 501.4020, L500.2500, L100.0100 #### [facility] [address] [place], [address] MCHC (RBC) [Mass/Vol] 31.9 g/dL Low 32-36 [facility] Comment on above: Performed By: #### L 501.4020, L500.2500, L100.0100 #### [facility] [address] [place], [address] MCV (RBC) [Entitic vol] 81.8 fL Normal 81-99 [facility] Comment on above: Performed By: #### L 501.4020, L500.2500, L100.0100 #### [facility] [address] [place], [address] Monocytes/100 WBC (Bld) 8.6 % Normal 0-10 [facility] Comment on above: Performed By: #### L 501.4020, L500.2500, L100.0100 #### [facility] [address] [place], [address] Neutrophils/100 WBC (Bld) 75.3 % High 47-70 [facility] Comment on above: Performed By: #### L 501.4020, L500.2500, L100.0100 #### [facility] [address] [place], [address] Nucleated RBC (Bld) [#/Vol] 0 10*3/uL Normal 0-5 [facility] Comment on above: Performed By: #### L 501.4020, L500.2500, L100.0100 #### [facility] [address] [place], [address] Platelet mean volume (Bld) [Entitic vol] 10.2 fL Normal 6.2-12.0 [facility] Comment on above: Performed By: #### L 501.4020, L500.2500, L100.0100 #### [facility] [address] [place], [address] Platelets (Bld) [#/Vol] 262 10*3/uL Normal 150-450 [facility] Comment on above: Performed By: #### L 501.4020, L500.2500, L100.0100 #### [facility] [address] [place], [address] RBC (Bld) [#/Vol] 4.79 10*6/uL Normal 4.2-5.4 [facility] Comment on above: Performed By: #### L 501.4020, L500.2500, L100.0100 #### [facility] [address] [place], [address] RDW SD 41.1 fl Normal 35.1-43.9 [facility] Comment on above: Performed By: #### L 501.4020, L500.2500, L100.0100 #### [facility] [address] [place], [address] WBC (Bld) [#/Vol] 10.9 10*3/uL Normal 4.4-11.0 [facility] Comment on above: Performed By: #### L 501.4020, L500.2500, L100.0100 #### [facility] [address] [place], [address] CNOVon 07-19-2024 CNOV Office Visit (UCTR) ---- KAPIL SALMON ([id number]) 1990 F Date Time Provider Department 07/19/24 10:00 AM ROMMEL MASTERSON [facility] During your visit today, we recorded the following information about you: Temperature Pulse Respiration Blood pressure 97.6 degrees 84/minute 21/minute 192/132 Weight Last Period 89 kg 07/05/24 Rmomel Masterson APRN.MID WIFE 07/19/2024 10:18 AM Signed Subjective HPI Nontoxic-appearing female presents urgent care chief complaint shortness of breath and dizziness headache sore throat cough. Duration of symptoms 1 day. Associated symptoms listed above. Presents today for evaluation. No OTC medication. No known sick contacts. States feels off this morning when she woke up. Denies any fever body aches chills hemoptysis pleuritic pain nausea vomiting abdominal pain change in bowel or bladder habits. Past medical history prescription medications allergies reviewed. .Patient presents with: Sore Throat: Cough, sob, dizziness x 1 day PAST MEDICAL HISTORY No date: Anemia No date: Attention deficit disorder with hyperactivity(314.0 1) No date: History of pre-eclampsia in prior , currently No date: Trauma PAST SURGICAL HISTORY 2007: MIRENA 07/01/2012: MIRENA No date: PAST SURGICAL HISTORY OF Comment: drained abcess from right leg No date: TONSILLECTOMY PRIMARY/SECONDARY Comment: Tonsillectomy ALLERGIES Iodine MEDICATIONS Etonogestrel-Ethiny l Estradiol (NUVARING) 0.12-0.015 mg/24 hr vaginal ring Use 1 Each vaginally as directed. Insert vaginally and leave in place for 3 consecutive weeks, then remove for 1 week. cyclobenzaprine (FLEXERIL) 10 mg tablet Take 1 tablet by mouth daily at bedtime. (Patient not taking: Reported on 03/24/2023) FAMILY HISTORY Problem Relation Age of Onset other (Fibromyalgia) Mother Cancer Father Leukemia other (ADHD) Brother other (other) Brother Psychiatry Maternal Grandfather COMMITTED SUICIDE Breast Cancer Paternal Grandmother No Known Problems Daughter Autism Daughter Breast Cancer Paternal Aunt Psychiatry Other MGUNCLE COMMITTED SUICIDE Social History Tobacco Use Smoking status: Former Current packs/day: 0.00 Average packs/day: 0.5 packs/day for 5.0 years (2.5 ttl pk-yrs) Types: Cigarettes Start date: 02/22/2018 Quit date: 02/22/2023 Years since quittin.4 Smokeless tobacco: Never Vaping Use Vaping status: Some Days Substance Use Topics Alcohol use: Yes Comment: rare, not while Drug use: No BP (!) 192/132 Pulse 84 Temp 36.4 ?C (97.6 ?F) Resp 21 Wt 89 kg (196 lb 3.4 oz) LMP 07/05/2024 SpO2 98% BMI 30.73 kg/m? Review of Systems Constitutional: Negative for chills, fever and malaise/fatigue. HENT: Positive for sore throat. Negative for congestion, ear discharge, ear pain and sinus pain. Eyes: Negative for blurred vision, pain, discharge and redness. Respiratory: Positive for cough and shortness of breath. Negative for hemoptysis, sputum production, wheezing and stridor. Cardiovascular: Negative for chest pain. Gastrointestinal: Negative for abdominal pain, diarrhea, nausea and vomiting. Musculoskeletal: Negative for myalgias. Skin: Negative for itching and rash. Neurological: Positive for headaches. Negative for dizziness. Objective Physical Exam Constitutional: General: She is not in acute distress. Appearance: She is not diaphoretic. HENT: Head: Normocephalic. Jaw: No trismus, tenderness, swelling or pain on movement. Mouth/Throat: Pharynx: Uvula midline. No pharyngeal swelling or uvula swelling. Eyes: Conjunctiva/sclera: Conjunctivae normal. Pupils: Pupils are equal, round, and reactive to light. Cardiovascular: Rate and Rhythm: Normal rate and regular rhythm. Heart sounds: Normal heart sounds. Pulmonary: Effort: Pulmonary effort is normal. No tachypnea, accessory muscle usage or respiratory distress. Breath sounds: Normal breath sounds. No stridor. No wheezing, rhonchi or rales. Musculoskeletal: Cervical back: No edema or erythema. No pain with movement. Normal range of motion. Skin: General: Skin is warm and dry. Neurological: Mental Status: She is alert and oriented to person, place, and time. ASSESSMENT/PLAN: 1. Viral illness - ICD9: 079.99, ICD10: B34.9 (primary diagnosis) - COVID AND INFLUENZA A/B AND RSV PCR, ROUTINE 2. SOB (shortness of breath) - ICD9: 786.05, ICD10: R06.02 Diagnosed with viral illness and shortness of breath. With elevated blood pressure and being symptomatic recommend patient be seen the ED for further evaluation care. Verbalized understand agrees plan of care. Will be seen at [facility]. Rommel Masterson APRN.MID WIFE Allergies As of Date: 07/19/2024 Noted Allergy Reaction IODINE 02/07/2018 9 - Itching Date Reviewed: 07/19/2024 Reviewed by: Elo Masterson (more content not included)... Normal [facility] COVID AND INFLUENZA A/B AND RSV PCR, ROUTINEon 07-19-2024 SARS-CoV-2 (COVID-19) RNA DROI+probe Ql (Unsp spec) SARS-COV-2 (AGENT OF COVID-19) RNA: Not detected INFLUENZA A RNA: Not detected INFLUENZA B RNA: Not detected RESPIRATORY SYNCYTIAL VIRUS (RSV) RNA: Not detected Normal [facility] Comment on above: Performed By: #### C VFLRS #### [facility] CLIA [id number] [address] [place] [address] [address] [place] Chest 1 View (Portable)on Chest 1 View (Portable) [facility] Imaging Services [address] [place] [address] Chest 1 View (Portable) MR#: [id number] Acct: [id number] Name: KAPIL SALMON Rep #: [id number] : 1990 F 33 From: Sherwin roach MD PCP: Care Physician,No Primary Status: REG ER Study: Chest 1 View (Portable) Date of Exam: 07/19/24 Exam# [id number] Ordering Dr: Markus Alas DO -[id number] STUDY: X-RAY CHEST REASON FOR EXAM: Female, 33 years old. Elevated blood pressure, cough TECHNIQUE: Single AP portable view of the chest. COMPARISON: Comparison is made with prior study dated February 22, 2019. FINDINGS: EKG electrodes are seen. The lungs are clear and expanded. There is no demonstrated pleural abnormality. Normal size heart. Normal mediastinum and michelle. Normal visualized pulmonary arteries. Normal visualized aortic arch and descending thoracic aorta. Normal visualized thoracic spine. Normal visualized ribs, clavicles, and shoulders. There is no demonstrated abnormality of the visualized soft tissue structures of the upper abdomen. RAD/Chest 1 View (Portable) IMPRESSION: Normal x-ray examination of the chest. Electronically Signed: Sherwin Grier MD at 11:55 EDT , CC: Dr. Markus Alas DO; No Primary Care Physician Corn Shucker: Signed Normal [facility] Emergency Department Summary on 07-19-2024 Emergency Department Summary [facility] Medical Records Department [address] [place] [address] Emergency Department Summary 07/19/24 MR#: [id number] Acct: [id number] Name: KAPIL SALMON Rep #: [id number] : 1990 33 From: Markus Alas DO PCP: Care Physician,No Primary Status:REG ER Location: ED HPI History of Present Illness Chief Complaint: Hypertension PFSH PFSH Medical History ADHD Anemia UTI (urinary tract infection) Home Medications ???Medication ???Instructions ???Recorded ???Last Taken ???Type sulfamethoxazole 800 1 tab PO BID 10 days #20 tabs 01/29/23 Unknown Rx mg-trimethoprim 160 mg tablet (Bactrim DS) Allergy/AdvReac Type Severity Reaction Status Date / Time Iodine and Iodide Containing Allergy Itching Verified 07/19/24 10:19 Produc Surgical History (Updated 09/13/21 @ 08:53 by Razia Sebastian) History of tonsillectomy Social History Smoking Status: Current every day smoker tobacco type: cigarettes EXAM Physical Exam Const Vital Signs: 07/19/24 10:17 07/19/24 11:18 07/19/24 11:18 Temperature 96.8 F L 98 F 98 F Temperature Source Temporal Temporal Temporal Pulse Rate 93 67 67 Respiratory Rate 18 18 16 Blood Pressure 190/116 H 166/103 H 166/103 H Blood Pressure Mean 140 124 124 Pulse Ox 97 100 100 Oxygen Delivery Method Room Air Room Air Room Air MDM MDM MDM Narrative Medical decision making narrative: HISTORY OF PRESENT ILLNESS: 33-year-old female presents with concern for elevated blood pressure. Patient states she woke up this morning felt slightly short of breath and a sore throat. She also Dors a cough is nonproductive. She notes her daughters been sick as well. She underwent urgent care to get a strep test and COVID test but they told her to come to the emergency department secondary elevated blood pressure. Patient denies significant headache, loss of vision, slurred speech, loss of movement or sensation, confusion. Currently denies chest pain or shortness of breath. [place] leg swelling. Denies any changes in urinary habits. REVIEW OF SYSTEMS: Pertinent positives: Elevated blood pressure Pertinent negatives: Headache, chest pain, leg swelling, focal loss of sensation or weakness. PHYSICAL EXAM: Nursing triage notes reviewed, Vital signs reviewed Constitutional: please see mdm HENT: MMM Eyes: Pupils equal round and reactive to light, Extraocular muscles intact Neck: No stridor, no JVD, full neck ROM Lungs: Clear to auscultation, No wheezing or rales. No increased work of breathing, no conversational dyspnea, no accessory muscle use, no nasal flaring. No respiratory distress noted Heart: Regular rate and rhythm, No murmurs, No rubs and No gallops, 2+ distal pulses (radial, femoral, posterior tibial) in all extremities Abdomen: Soft, there is no tenderness, rigidity, rebound or guarding, no obvious peritoneal signs, no palpable pulsatile abdominal masses, no auscultated abdominal bruit : No CVAT Extremities: No edema Neuro: Alert and oriented x3, neuro exam at baseline, cranial nerves II through XII are intact. No pain with extraocular muscle movement. There is negative test of skew. 5 of 5 strength in upper and lower extremities in flexion extension. Intact sensation to light touch in upper and lower extremity dermatomes. No truncal or extremity ataxia. No dysdiadochokinesia. Normal gait. 2+ reflexes in upper and lower extremities. No meningeal signs. Negative Babinski. NIH of 0. Skin: No rash or lesions noted MEDICAL DECISION MAKING: Chief Complaint: Elevated blood pressure, viral URI External records reviewed: Imaging reviewed: Chest x-ray reviewed from 2019 shows no acute process Factors affecting care: none Social determinants of health: none History obtained from others: none Consults: none [facility] Narrative: Patient initially hypertensive with a blood pressure 190/116 otherwise afebrile and nontoxic- appearing. Patient initially had no focal neurologic deficits. Initial blood pressure was documented 190/116 but during my exam her blood pressure is 166/88. I considered the following differential diagnosis: Endorgan damage from elevated blood pressure including but not limited to ICH, ACS, heart failure, kidney damage, strep throat, COVID. I consider obtaining a CT scan of the head to rule out ICH however thought this was not indicated given the patient's nonfocal neuroexam. In addition to this her blood pressure elevated but not c oncerned only so with systolic and diastolic blood pressure in the 160s/80s respectively. ALL IMAGES (IF OBTAINED) HAVE BEEN PERSONALLY REVIEWED AND INTERPRETED BY MYSELF. EKG with normal sinus rhythm (more content not included)... Normal [facility] L501.4020on 07-19-2024 TROPONIN-I HS 7 pg/mL Normal 3.0-54.0 [facility] Comment on above: Order Comment: 'TROP ' Serial specimen #1, #2 or #3: 1 Result Comment: Donavon perkins Note: New Test Units and Gender Specific Reference Ranges. For more information see Policy Stat Procedure [place] High Sensitivity Troponin (TNIH) and attachments. Performed By: #### L 501.4020, L500.2500, L100.0100 #### [facility] [address] [place], [address] M100.677on 07-19-2024 M100.677 Negative [facility] Comment on above: Performed By: #### M 100.678, M100.677, L400.7600 #### [facility] [address] [place], [address] M100.678on 07-19-2024 M100.678 Pending SARS-CoV-2 (COVID 19) Negative INFLUENZA A Negative INFLUENZA B Negative RSV PCR Negative [facility] Comment on above: Performed By: #### M 100.678, M100.677, L400.7600 #### [facility] [address] [place], [address] ,Urineon 07-19-2024 Beta HCG ( test) Ql (U) Normal [facility] Comment on above: Result Comment: PT D EPARTED ER PRIOR TO COLLECTION Performed By: #### M 100.678, M100.677, L400.7600 #### [facility] [address] [place], [address] INTERNAL QC OK? Normal [facility] Comment on above: Result Comment: PT D EPARTED ER PRIOR TO COLLECTION Performed By: #### M 100.678, M100.677, L400.7600 #### [facility] [address] [place], [place], [address] RECORD KIT LOT# Normal [facility] Comment on above: Result Comment: PT D EPARTED ER PRIOR TO COLLECTION Performed By: #### M 100.678, M100.677, L400.7600 #### [facility] [address] [place], [address] Absolute lymphocyte countOrd ered By: Kyung Fernandez on 01-29-2023 Lymphocytes Auto (Unsp spec) [#/Vol] 1.88 10*3/uL 0.83-4.51 [facility] Basophil percentageOrdered B y: Kyung Fernandez on 01-29-2023 Basophils/100 WBC (Bld) 0.5 % 0-1 [facility] Chloride [Moles/Vol] 107 mmol/L 98-107 [facility] Eosinophils/100 WBC (Bld) 0.8 % 0-5 [facility] Glucose [Mass/Vol] 99 mg/dL 74-106 [facility] Neutrophils (Bld) [#/Vol] 6.8 10*3/uL 2.0-7.7 [facility] Neutrophils/100 WBC (Bld) 71.8 % 47-70 [facility] Potassium [Moles/Vol] 3.9 mmol/L 3.5-5.1 [facility] Sodium [Moles/Vol] 139 mmol/L 136-145 [facility] WBC (Bld) [#/Vol] 9.4 10*3/uL 4.4-11.0 [facility] Basophil percentage 0-5 SEEN /hpf 0-5 [facility] Bilirubin Test strip Ql (U)O rdered By: Kyung Fernandez on 01-29-2023 Bilirubin Ql (U) Negative Negative [facility] Blood erythrocytes count (nu mber/volume)Ordered By: Kyung Fernandez on 01-29-2023 RBC (Bld) [#/Vol] 5.57 10*6/uL 4.2-5.4 [facility] Blood hemoglobin measurement (mass/volume)Ordered By: Kyung Fernandez on 01-29-2023 Hemoglobin (Bld) [Mass/Vol] 14.6 g/dL 12.0-15.0 [facility] Blood lymphocytes/100 leukoc ytesOrdered By: Kyung Fernandez on 01-29-2023 Lymphocytes/100 WBC (Bld) 20.0 % 19-41 [facility] Blood monocytes/100 leukocyt esOrdered By: Kyung Fernandez on 01-29-2023 Monocytes/100 WBC (Bld) 6.5 % 0-10 [facility] Blood platelet mean volumeOr dered By: Kyung Fernandez on 01-29-2023 Platelet mean volume (Bld) [Entitic vol] 10.3 fL 6.2-12.0 [facility] Determination of erythrocyte mean corpuscular volume (MCV)Ordered By: Kyung Fernandez on 01-29-2023 MCV (RBC) [Entitic vol] 83.7 fL 81-99 [facility] Hematocrit Auto (Bld) [Volum e fraction]Ordered By: Kyung Fernandez on 01-29-2023 Hematocrit (Bld) [Volume fraction] 46.6 % 37-47 [facility] Ketones Test strip Ql (U)Ord ered By: Kyung Fernandez on 01-29-2023 Ketones Ql (U) Negative Negative [facility] - Chemistry and C hemistry - challengeOrdered By: Kyung Fernandez on 01-29-2023 CO2 [Moles/Vol] 28.0 mmol/L 21.0-32.0 [facility] Urea nitrogen/Creatinine [Mass ratio] 10.8 mg/mg 10-20 [facility] HCG ( test) Ql (U) Negative [facility] Comment on above: Very dilute urine sp ecimens, as indicated by a low specificgravity, may not contain bilingual call center representative levels of hCG. If is still suspected, a first morning urinespecimen should be collected 48 hours later and tested. Laboratory - Hematology and Cell countsOrdered By: Kyung Fernandez on 01-29-2023 Erythrocyte distribution width (RBC) [Entitic vol] 40.6 fL 35.1-43.9 [facility] Erythrocyte distribution width (RBC) [Ratio] 13.2 % 11.6-14.6 [facility] Immature granulocytes/100 WBC (Bld) 0.400 % 0.0-0.9 [facility] Comment on above: IG% - Immature Granu locytes (promyelocytes, myelocytes and metamyelocytes) > 1% indicates that a LEFT SHIFT is Present. MCH (RBC) [Entitic mass] 26.2 pg 27.0-32.0 [facility] Nucleated RBC/100 WBC (Bld) [Ratio] 0 % 0-5 [facility] MCHC Auto (RBC) [Mass/Vol]Or dered By: Kyung Fernandez on 01-29-2023 MCHC (RBC) [Mass/Vol] 31.3 g/dL 32-36 [facility] Mucus LM Ql (Urine sed)Order ed By: Kyung Fernandez on 01-29-2023 Mucus Ql (Urine sed) 0 SEEN /hpf [facility] Nitrite Test strip Ql (U)Ord ered By: Kyung Fernandez on 01-29-2023 Nitrite Ql (U) Positive Negative [facility] No Panel InformationOrdered By: Kyung Fernandez on 01-29-2023 Estimated Creatinine Clearance Calc 107.12 ml/min [facility] Estimated GFR (MDRD) Amer 117 mL/min >60 [facility] Comment on above: GFR Calc Estimated GFR (MDRD) Non-Af Amer 97 mL/min >60 [facility] Comment on above: Non- GFR Calc Platelets bldOrdered By: Swathi Fernandez on 01-29-2023 Platelets (Bld) [#/Vol] 303 10*3/uL 150-450 [facility] Protein Test strip Ql (U)Ord ered By: Kyung Fernandez on 01-29-2023 Protein Ql (U) 15 mg/dl Negative [facility] Serum or plasma calcium pedro urement (mass/volume)Ordered By: Kyung Fernandez on 01-29-2023 Calcium [Mass/Vol] 9.1 mg/dL 8.5-10.1 [facility] Serum or plasma creatinine m easurement (mass/volume)Ordered By: Kyung Fernandez on 01-29-2023 Creatinine [Mass/Vol] 0.74 mg/dL 0.55-1.02 [facility] Comment on above: The validity of the calculated GFR & GFRAA in patients over 70 years has not been determined. Clinical correlation is essential. Serum or plasma urea nitroge n measurement (mass/volume)Ordered By: Kyung Fernandez on 01-29-2023 Urea nitrogen [Mass/Vol] 8 mg/dL 7-18 [facility] Squamous epithelial cells de tection in urine sediment by light microscopyOrdered By: Kyung Fernandez on 01-29-2023 Epithelial cells.squamous LM Ql (Urine sed) 0 SEEN /hpf 5-10 [facility] Thin prep Papanicolaou smear with manual screeningOrdered By: Kyung Fernandez on 01-29-2023 Thin prep Papanicolaou smear with manual screening 4 5-15 [facility] Urine blood detectionOrdered By: Kyung Fernandez on 01-29-2023 RBC Ql (U) 10 /ul Negative [facility] RBC Ql (U) 0 SEEN /hpf 0-5 [facility] Urine clarityOrdered By: Swathi Fernandez on 01-29-2023 Clarity (U) Clear Clear [facility] Urine color determinationOrd ered By: Kyung Fernandez on 01-29-2023 Color (U) Yellow Yellow [facility] Urine glucose detectionOrder ed By: Kyung Fernandez on 01-29-2023 Glucose Ql (U) Normal mg/dl Normal [facility] Urine leukocyte esterase det ection by dipstickOrdered By: Kyung Fernandez on 01-29-2023 Leukocyte esterase Test strip Ql (U) 25 /ul Negative [facility] Urine pHOrdered By: Kyung french on 01-29-2023 pH (U) 8.0 [pH] 5.0 - 8.0 [facility] Urine sediment bacteria coun t by microscopy (number/high power field)Ordered By: Kyung Fernandez on 01-29-2023 Bacteria LM.HPF (Urine sed) [#/Area] 3 /[HPF] None Seen [facility] Urine specific gravity measu rementOrdered By: Kyung Fernandez on 01-29-2023 Specific gravity (U) [Rel density] 1.015 1.002-1.030 [facility] Urobilinogen Auto test strip Ql (U)Ordered By: Kyung Fernandez on 01-29-2023 Urobilinogen Ql (U) Normal mg/dl Normal [facility] Vital Signs Date Time Vital Sign Value Performing Clinician Facility 02-11-2025 11:17-0400 Body temperature 98 [degF] Dr. Ceferino Melendrez MD Work Phone: [facility] 02-11-2025 11:17-0400 Diastolic blood pressure 90 mm[Hg] Dr. Ceferino Melendrez MD Work Phone: [facility] 02-11-2025 11:17-0400 Heart rate 80 /min Dr. Ceferino Melendrez MD Work Phone: [facility] 02-11-2025 11:17-0400 Respiratory rate 16 /min Dr. Ceferino Melendrez MD Work Phone: [facility] 02-11-2025 11:17-0400 SaO2% (BldA) [Mass fraction] 99 % Dr. Ceferino Melendrez MD Work Phone: [facility] 02-11-2025 11:17-0400 Systolic blood pressure 176 mm[Hg] Dr. Ceferino Melendrez MD Work Phone: [facility] 02-11-2025 11:09-0400 Body mass index (BMI) [Ratio] 32.4 kg/m2 Dr. Ceferino Melendrez MD Work Phone: [facility] 02-11-2025 11:09-0400 Body weight [address] Ceferino Melendrez MD Work Phone: [facility] 02-11-2025 10:55-0400 Body height 170.[address] Ceferino Melendrez MD Work Phone: [facility] 07-20-2024 23:26-0400 Diastolic Blood Pressure Non-Invasive 114 mm[Hg] YAKELIN EDWARD DO [facility] 07-20-2024 23:26-0400 Heart rate 98 /min YAKELIN EDWARD DO [facility] 07-20-2024 23:26-0400 Respiratory rate 16 /min YAKELIN EDWARD DO [facility] 07-20-2024 23:26-0400 Systolic Blood Pressure Non-Invasive 172 mm[Hg] YAKELIN EDWARD DO [facility] 07-20-2024 22:08-0400 Body temperature 98.24 [degF] YAKELIN EDWARD DO [facility] 07-20-2024 22:08-0400 Body weight 81.8 kg YAKELIN EDWARD DO [facility] 07-20-2024 22:08-0400 Diastolic Blood Pressure Non-Invasive 139 mm[Hg] YAKELIN EDWARD DO [facility] 07-20-2024 22:08-0400 Heart rate 101 /min YAKELIN EDWARD DO [facility] 07-20-2024 22:08-0400 Respiratory rate 18 /min YAKELIN EDWARD DO [facility] 07-20-2024 22:08-0400 Systolic Blood Pressure Non-Invasive 192 mm[Hg] YAKELIN EDWARD DO [facility] 07-19-2024 09:54-0400 Body mass index (BMI) [Ratio] 30.73 kg/m2 Rommel Masterson APRN.MID WIFE Work Phone: [facility] 07-19-2024 09:54-0400 Body temperature 97.59 [degF] Rommel Masterson APRN.MID WIFE Work Phone: [facility] 07-19-2024 09:54-0400 Body weight 89 kg Rommel Pendarlenbury CIRCUS TRAINER.MID WIFE Work Phone: [facility] 07-19-2024 09:54-0400 Diastolic blood pressure 132 mm[Hg] Rommel Pendlebury CIRCUS TRAINER.MID WIFE Work Phone: [facility] 07-19-2024 09:54-0400 Heart rate 84 /min Rommel Pendlebury CIRCUS TRAINER.MID WIFE Work Phone: [facility] 07-19-2024 09:54-0400 Respiratory rate 21 /min Rommel Pendlebury CIRCUS TRAINER.MID WIFE Work Phone: [facility] 07-19-2024 09:54-0400 SaO2% (BldA) [Mass fraction] 98 % Rommel Ahujabury CIRCUS TRAINER.MID WIFE Work Phone: [facility] 07-19-2024 09:54-0400 Systolic blood pressure 192 mm[Hg] Rommel Pendlebury CIRCUS TRAINER.MID WIFE Work Phone: [facility] 01-05-2024 13:31-0500 Body temperature 97.11 [degF] Lori Oswald CIRCUS TRAINER.MID WIFE Work Phone: [facility] 01-05-2024 13:31-0500 Body weight 88.91 kg Lori Oswald CIRCUS TRAINER.MID WIFE Work Phone: [facility] 01-05-2024 13:31-0500 Diastolic blood pressure 72 mm[Hg] Lori Oswald CIRCUS TRAINER.MID WIFE Work Phone: [facility] 01-05-2024 13:31-0500 Heart rate 92 /min Lori Oswald CIRCUS TRAINER.MID WIFE Work Phone: [facility] 01-05-2024 13:31-0500 Respiratory rate 16 /min Lori Oswald CIRCUS TRAINER.MID WIFE Work Phone: [facility] 01-05-2024 13:31-0500 SaO2% (BldA) [Mass fraction] 99 % Lori Oswald CIRCUS TRAINER.MID WIFE Work Phone: [facility] 01-05-2024 13:31-0500 Systolic blood pressure 120 mm[Hg] Lori Nelsongs CIRCUS TRAINER.MID WIFE Work Phone: [facility] 05-31-2023 08:22-0400 Body temperature 97.81 [degF] Mary Athy PA-C Work Phone: [facility] 05-31-2023 08:22-0400 Body weight 88 kg Mary Athy PA-C Work Phone: [facility] 05-31-2023 08:22-0400 Diastolic blood pressure 68 mm[Hg] Mary Athy PA-C Work Phone: [facility] 05-31-2023 08:22-0400 Heart rate 92 /min Mary Athy PA-C Work Phone: [facility] 05-31-2023 08:22-0400 Respiratory rate 16 /min Mary Athy PA-C Work Phone: [facility] 05-31-2023 08:22-0400 SaO2% (BldA) [Mass fraction] 98 % Mary Athy PA-C Work Phone: [facility] 05-31-2023 08:22-0400 Systolic blood pressure 122 mm[Hg] Mary Athy PA-C Work Phone: [facility] 03-24-2023 14:04-0400 Body height 170.2 cm Salome Plotts CIRCUS TRAINER.CNM Work Phone: [facility] 03-24-2023 14:04-0400 Body weight 86.18 kg Salome Plotts CIRCUS TRAINER.CNM Work Phone: [facility] 03-24-2023 14:04-0400 Diastolic blood pressure 86 mm[Hg] Salome Plotts CIRCUS TRAINER.CNM Work Phone: [facility] 03-24-2023 14:04-0400 Systolic blood pressure 130 mm[Hg] Salome Plotts CIRCUS TRAINER.CNM Work Phone: [facility] 01-29-2023 11:37-0500 Body height 170.18 cm [facility] 01-29-2023 11:37-0500 Body mass index (BMI) [Ratio] 28.5 kg/m2 [facility] 01-29-2023 11:37-0500 Body temperature 97.1 [degF] [facility] 01-29-2023 11:37-0500 Body weight 82.55 kg [facility] 01-29-2023 11:37-0500 Diastolic blood pressure 101 mm[Hg] [facility] 01-29-2023 11:37-0500 Heart rate 81 /min [facility] 01-29-2023 11:37-0500 Respiratory rate 16 /min [facility] 01-29-2023 11:37-0500 SaO2% (BldA) [Mass fraction] 100 % [facility] 01-29-2023 11:37-0500 Systolic blood pressure 158 mm[Hg] [facility] 11-30-2022 10:18-0500 Body height 170.18 cm [facility] Work Phone: 11-30-2022 10:18-0500 Body mass index (BMI) [Ratio] 28.1 kg/m2 [facility] 11-30-2022 10:18-0500 Body temperature 97.4 [degF] [facility] 11-30-2022 10:18-0500 Body weight 81.64 kg [facility] 11-30-2022 10:18-0500 Diastolic blood pressure 120 mm[Hg] [facility] 11-30-2022 10:18-0500 Heart rate 102 /min [facility] 11-30-2022 10:18-0500 Respiratory rate 16 /min [facility] 11-30-2022 10:18-0500 SaO2% (BldA) [Mass fraction] 99 % [facility] 11-30-2022 10:18-0500 Systolic blood pressure 162 mm[Hg] [facility] 11-25-2022 14:10-0500 Body temperature 97.3 [degF] Ros Fenton APRN.CNP Work Phone: [facility] 11-25-2022 14:10-0500 Body weight 90.17 kg Ros Praisler-Wood CIRCUS TRAINER.MID WIFE Work Phone: [facility] 11-25-2022 14:10-0500 Diastolic blood pressure 94 mm[Hg] Ros Praisler-Wood CIRCUS TRAINER.MID WIFE Work Phone: [facility] 11-25-2022 14:10-0500 Heart rate 76 /min Ros Praisler-Wood CIRCUS TRAINER.MID WIFE Work Phone: [facility] 11-25-2022 14:10-0500 Respiratory rate 20 /min Ros Praisler-Wood CIRCUS TRAINER.MID WIFE Work Phone: [facility] 11-25-2022 14:10-0500 SaO2% (BldA) [Mass fraction] 99 % Ros Praisler-Wood CIRCUS TRAINER.MID WIFE Work Phone: [facility] 11-25-2022 14:10-0500 Systolic blood pressure 136 mm[Hg] Ros Praisler-Wood CIRCUS TRAINER.MID WIFE Work Phone: [facility] Encounters Encounter Date Encounter Type Care Provider Facility Start: 06-08-2025 End: 06-11-2025 Refill Salome Youchucky CIRCUS TRAINER.CNM Work Phone: OB/Gynecology Comment on above: Refill Request Start: 03-19-2025 End: 03-19-2025 Patient encounter procedure Kevin Cohen MD Work Phone: [facility] Comment on above: Left-sided chest patty n (Primary Dx); SOB (shortness of breath) Start: 03-19-2025 End: 03-19-2025 Emergency department patient visit Braden Mao Facility:[facility] Start: 03-19-2025 End: 03-19-2025 ambulatory KEVIN COHEN Facility:[facility] Start: 02-11-2025 End: 02-11-2025 Emergency department patient visit Dr. Ceferino Melendrez MD Work Phone: -Emergency Department Work Phone: Start: 08-10-2024 End: 08-10-2024 ambulatory Ceferino Melendrez Facility:[facility] Start: 07-20-2024 End: 07-20-2024 Emergency department patient visit YAKELIN EDWARD DO [facility] Start: 07-20-2024 End: 07-20-2024 Telephone encounter Rachelle JOHNSON Work Phone: [facility] Start: 07-19-2024 End: 07-19-2024 Emergency department patient visit Markus Alas Facility:[facility] Start: 07-19-2024 End: 07-19-2024 ambulatory KEVIN COHEN Facility:[facility] Start: 07-19-2024 End: 07-19-2024 Office outpatient visit 15 minutes Rommel Masterson CIRCUS TRAINER.MID WIFE Work Phone: [facility] Comment on above: Viral illness (Prima ry Dx); SOB (shortness of breath) Start: 03-17-2024 Refill Salome bender CIRCUS TRAINER.CNM Work Phone: OB/Gynecology Comment on above: Refill Request Start: 01-05-2024 End: 01-05-2024 Patient encounter procedure Lori Oswald CIRCUS TRAINER.MID WIFE Work Phone: [facility] Comment on above: Pain, dental (Primar y Dx) Start: 05-31-2023 End: 05-31-2023 Patient encounter procedure Mary Otero PA-C Work Phone: [facility] Comment on above: Irritant contact yobani matitis due to cosmetics (Primary Dx) Start: 03-24-2023 End: 03-24-2023 Patient encounter procedure Salome Prabhakar CIRCUS TRAINER.CNM Work Phone: OB/Gynecology Comment on above: Encounter for gyneco logical examination (general) (routine) without abnormal findings (Primary Dx); Screening for cervical cancer; Encounter for screening for human papillomavirus (HPV); Urinary urgency; Mixed incontinence Start: 03-24-2023 End: 03-24-2023 Patient encounter status Salome Prabhakar CIRCUS TRAINER.CNM Work Phone: OB/Gynecology Start: 01-29-2023 End: 01-29-2023 Emergency department patient visit [facility] Start: 11-30-2022 End: 11-30-2022 Emergency department patient visit [facility] Start: 11-25-2022 End: 11-25-2022 Patient encounter procedure Ros Fenton CIRCUS TRAINER.MID WIFE Work Phone: [facility] Comment on above: Acute neck pain (Lulu lina Dx) Start: 08-25-2022 Telephone encounter Ros Carrillo CIRCUS TRAINER.MID WIFE Work Phone: [facility] Comment on above: Results Start: 08-21-2022 Refill Radha Falk CIRCUS TRAINER.MID WIFE Work Phone: OB/Gynecology Comment on above: Refill Request Start: 05-27-2017 End: 11-04-2018 Patient requested procedure Salome Prabhakar CIRCUS TRAINER.CNM Work Phone: [facility] Procedures Date Procedure Procedure Detail Performing Clinician Start: 01-29-2023 CT of abdomen and pe lvis without contrast Plan of Treatment Date Care Activity Detail Author Start: 2033 PAP TESTING PAP TESTING [facility] Start: 08-18-2028 Urine microalbumin profile [facility] Start: 03-24-2028 HPV TESTING HPV TESTING [facility] Start: 03-24-2028 Screening for malign ant neoplasm of cervix [facility] Start: 07-23-2025 Influenza vaccination Influenza Vacc ine (#1) [facility] Start: 02-11-2025 [facility] Start: 07-23-2024 Covid-19 Vaccine ( season) Covid-19 Vaccine () [facility] Start: 07-23-2024 Influenza vaccination C [facility] Start: 11-22-2023 Behavioral Health Screening Behavioral Health Screening [facility] Start: 11-22-2023 Depression Assessment Depression Ass essment [facility] Start: 07-23-2023 Covid-19 Vaccine ( season) Covid-19 Vaccine ( season) [facility] Start: 07-23-2023 Influenza vaccination C [facility] Start: 02-22-2023 PAP TESTING PAP TESTING [facility] Start: 01-29-2023 [facility] Start: 11-22-2022 DEPRESSION ASSESSMENT DEPRESSION ASS [facility] Start: 07-23-2022 Influenza vaccination INFLUENZA (#1) [facility] Start: 11-22-2021 DEPRESSION ASSESSMENT DEPRESSION ASS ESSMENT [facility] Start: 2021 HPV TESTING HPV TESTING [facility] Start: 07-30-2021 COVID-19 VACCINE (3 - Booster for Pfizer series) COVID-19 VACCINE (3 - Booster for Pfizer series) [facility] Start: 07-30-2021 COVID-19 VACCINE (3 - Pfizer series) COVID-19 VACCINE (3 - Pfizer series) [facility] Start: 2010 Hepatitis B Vaccine (1 of 3 - 19+ 3-dose series) Hepatitis B Vaccine (1 of 3 - 19+ 3-dose series) [facility] Start: 2009 Depression Screening Depression Scre ening [facility] Start: 2009 HEPATITIS C SCREENING HEPATITIS C [facility] Start: 2009 Hepatitis C screening Hepatitis C [facility] Start: 1997 PNEUMOCOCCAL (1 - PCV) PNEUMOCOCCAL (1 - PCV) [facility] Start: 1991 HEPATITIS B (1 of 3 - 3-dose series) HEPATITIS B (1 of 3 - 3-dose series) [facility] Start: 1991 Hepatitis B Vaccine (1 of 3 - 3-dose series) Hepatitis B Vaccine (1 of 3 - 3-dose series) [facility] Bacteria identified in Urine by Culture Urine Culture [facility] COVID & INFLUENZA A/ B & RSV PCR, ROUTINE COVID & INFLUENZA A/B & RSV PCR, ROUTINE Microbiology Routine Viral illness Ordered: 07/19/2024 [facility] Work Phone: Comment on above: Ordered: 07/19/2024 PAP TEST PAP TEST Lab Zahraa mera Screening for cervical cancer Encounter for screening for human papillomavirus (HPV) 03/24/2023 3:10 PM EDT [facility] Work Phone: Patient Education [facility] Work Phone: Patient referral [facility] Work Phone: Immunizations Immunization Date Immunization Notes Care Provider Raz lewis 08-30-2018 influenza, injectabl e, quadrivalent, contains preservative Radha [place] [employer] Work Phone: [facility] 08-30-2018 influenza virus vaccine, unspecified formulation Lori Oswald [employer] Work Phone: [facility] 08-18-2018 tetanus toxoid, redu gee diphtheria toxoid, and acellular pertussis vaccine, adsorbed Radha Dileep [employer] Work Phone: [facility] 07-05-2018 RHO(D) immune globul in- IV or IM Radha [place] [employer] Work Phone: [facility] Work Phone: 02-24-1993 haemophilus influenz ae type b vaccine, conjugate unspecified formulation Radha [place] [employer] Work Phone: [facility] Work Phone: 02-24-1993 measles, mumps and rubella virus vaccine Radha Dileep [employer] Work Phone: [facility] Work Phone: 10-31-1992 diphtheria, tetanus toxoids and acellular pertussis vaccine Radha [place] [employer] Work Phone: [facility] Work Phone: 10-31-1992 haemophilus influenz ae type b vaccine, conjugate unspecified formulation Radha Dileep [employer] Work Phone: [facility] Work Phone: 1991 diphtheria, tetanus toxoids and acellular pertussis vaccine Radha Dileep [employer] Work Phone: [facility] Work Phone: 1991 haemophilus influenz ae type b vaccine, conjugate unspecified formulation Radha Dileep [employer] Work Phone: [facility] Work Phone: 1991 poliovirus vaccine, inactivated [facility] [employer] Work Phone: [facility] Work Phone: 1991 diphtheria, tetanus toxoids and acellular pertussis vaccine [facility] [employer] Work Phone: [facility] Work Phone: 1991 poliovirus vaccine, inactivated [facility] [employer] Work Phone: [facility] Work Phone: Payers Date Payer Category Payer Self-pay [id number] 2017 Medicaid [id number] 2015 Unknown [employer] [id number] 2015 Unknown [id number] Unknown [id number] Unknown [id number] Unknown [id number] Unknown [id number] Social History Date Type Detail Facility Start: 11-04-2018 End: 08-22-2022 Tobacco smoking status WIIS Smokes tobacco daily [facility] Start: 02-22-2018 End: 02-22-2023 History of tobacco use Cigarette Smoker [facility] Start: 11-04-2018 End: 03-24-2023 Cigarettes smoked current (pack per day) - Reported 0.5 [facility] Start: 11-04-2018 End: 03-24-2023 Tobacco use and exposure Smokeless tobacco non-user [facility] Start: 10-24-2020 End: 07-19-2024 Alcohol intake Current drinker of alcohol (finding) [facility] Start: 05-27-2017 History SDOH Alcohol Comment rare, not while [facility] Start: 1990 Sex Assigned At Female [facility] Start: 08-12-2022 End: 08-22-2022 Exposure to SARS-CoV-2 (event) Not sure [facility] Work Phone: Start: 11-30-2022 End: 01-29-2023 Tobacco smoking status WIIS Unknown if ever smoked [facility] Start: 09-15-2018 None [facility] Start: 03-24-2023 End: 02-11-2025 Tobacco smoking status NHIS Ex-smoker [facility] Work Phone: Start: 02-22-2018 End: 02-22-2023 History of tobacco use Current smoker [facility] Work Phone: Start: 03-24-2023 End: 05-31-2023 Tobacco use panel [facility] National Score (1-100), lower number is lower risk 91 [facility] Start: 10-25-2020 Gender identity Identifies as female gender (finding) [facility] Start: 10-25-2020 Sexual orientation Heterosexual (fin ding) [facility] Tobacco smoking status No Smokin g Status Entered [facility] Start: 02-11-2025 Sex Female (finding) [facility] NEGATED: Highlighted row [facility] Functional Status Date Assessment Result Facility 07-20-2024 Functional Status Standard Safet y ID band on, Allergy Band on, Call device within reach, Bed in low position, Wheels locked, Upper/Half-Length side-rails up, Bedside Cart Locked, Safety level maintained [facility] Mental Status Date Assessment Result Facility 07-20-2024 Mental Status Orientation Oriented x 4 [facility] Clinical Notes 07-06-2018 to 03-19-2025 Kevin Cohen MD - 03/19/2025 3:59 PM EDTPRommel lau APRN.[employer] - 07/19/2024 10:01 AM EDTTelephone Encounter - Nelsy Metcalf RN - 03/17/2024 11:27 AM EDTPatient Instructions Note Date & Type Note Facility 03-19-2025 Note HNO ID: [id number] Author: KEVIN COHEN MD Service: ? Author Type: Physician Type: Progress Notes Filed: 03/19/2025 16:23 Note Text: [facility] Triage Note: Patient presents to the [facility] with heart and BP related concerns. She says she has been ill and took Sudafed. To avoid medication interaction, she held lisinopril today. At work she had been feeling short of breath and near syncopal. She feels her heart is "racy" and has pain in her left upper chest. She does not have a cough or fever. Patient is offered to be seen and have blood pressure evaluated with likely referral to the emergency room. She chooses to proceed directly to the [facility] for evaluation. Declines EMS transport. [facility] 03-19-2025 History of Presen t illness Narrative [facility] Triage Note: Patient presents to the [facility] with heart and BP related concerns. She says she has been ill and took Sudafed. To avoid medication interaction, she held lisinopril today. At work she had been feeling short of breath and near syncopal. She feels her heart is "racy" and has pain in her left upper chest. She does not have a cough or fever. Patient is offered to be seen and have blood pressure evaluated with likely referral to the emergency room. She chooses to proceed directly to the [facility] for evaluation. Declines EMS transport. documented in this encounter [facility] 07-21-2024 Hospital Discharg e instructions Patient Education 07/20/2024 23:29:10 Hypertension, To Be Confirmed High Blood Pressure, To Be Confirmed, No Treatment Your blood pressure today was higher than normal. Sometimes anxiety or pain can cause a temporary rise in blood pressure. It later returns to normal. Blood pressure that is high only one time doesn t mean that you have high blood pressure (hypertension). High blood pressure is a chronic illness. But you should have your blood pressure measured again within the next few days to find out if it s still high. Blood pressure measurements are given as 2 numbers. Systolic blood pressure is the upper number. This is the pressure when the heart contracts. Diastolic blood pressure is the lower number. This is the pressure when the heart relaxes between beats. You will see your blood pressure readings written together. For example, a person with a systolic pressure of 118 and a diastolic pressure of 78 will have 118/78 written in the medical record. Blood pressure is categorized as normal, elevated, or stage 1 or stage 2 high blood pressure: Normal blood pressure is systolic of less than 120 and diastolic of less than 80 (120/80) Elevated blood pressure is systolic of 120 to 129 and diastolic less than 80 Stage 1 high blood pressure is systolic is 130 to 139 or diastolic between 80 to 89 Stage 2 high blood pressure is when systolic is 140 or higher or the diastolic is 90 or higher Lifestyle changes such as weight loss, exercise, and quitting smoking, can help manage your blood pressure. Have your blood pressure checked regularly to be sure it is under control. Home care To track your blood pressure, your provider may ask you to come into the office at different times and on different days. If your healthcare provider asks you to check your readings at home, ask him or her what times of the day to test and for how many days. Before you leave the office, ask your provider to show you how to take your blood pressure and be sure to ask questions if you don't understand something. Consider buying an automatic blood pressure monitor. Ask your provider for a recommendation as well as the proper size cuff to fit your arm. You can buy blood pressure monitors at most pharmacies. The [place] [employer] recommends the following guidelines for home blood pressure monitoring: Don't smoke or drink coffee or other caffeinated drinks for 30 minutes before taking your blood pressure. Go to the bathroom before the test. Relax for 5 minutes before taking the measurement. Sit with your back supported (don't sit on a couch or soft chair); keep your feet on the floor uncrossed. Place your arm on a solid flat surface (like a table) with the upper part of the arm at heart level. Place the middle of the cuff directly above the bend of the elbow. Check the monitor's instruction manual for an illustration. Take multiple readings. When you measure, take 2 to 3 readings one minute apart and record all of the results. Take your blood pressure at the same time every day, or as your healthcare provider recommends. Record the date, time, and blood pressure reading. Take the record with you to your next medical appointment. If your blood pressure monitor has a built-in memory, simply take the monitor with you to your next appointment. Call your provider if you have several high readings. Don't be frightened by a single high blood pressure reading, but if you get several high readings, check in with your healthcare provider. Note: When blood pressure reaches a systolic (top number) of 180 or higher OR diastolic (bottom number) of 110 or higher, seek emergency medical treatment. Follow-up care Keep all of your follow up appointments. If your blood pressure is more than 120 over 80 on 2 out of 3 days, you will need to follow up with your healthcare provider for more evaluation and treatment. Don t put this off! High blood pressure can be treated. High blood pressure that s not treated raises your risk for heart attack, heart failure, and stroke. When to seek medical advice Call your healthcare provider right away if any of these occur: Blood pressure reaches a systolic (top number) of 180 or higher, OR diastolic (bottom number) of 110 or higher Chest pain or shortness of breath Severe headache Throbbing or rushing sound in the ears Nosebleed Sudden severe pain in your belly (abdomen) Extreme drowsiness, confusion, or fainting Dizziness or dizziness with spinning sensation (vertigo) Weakness of an arm or leg or one side of the face You have problems speaking or seeing [id number] [employer]. [address] [place] [address], [place] [address]. All rights reserved. This information is not intended as a substitute for professional medical care. Always follow your healthcare professional's instructions. Follow Up Care 07/20/2024 22:04:10 With:Go to emergency room if symptoms worsen Address:Unknown When:2-4 days With:Follow up with primary care provider Address:Unknown When:2-4 days [facility] 07-20-2024 Emergency department Discharge summary Discharge Instructions Thank you for allowing [facility] to assist you with your healthcare needs. The following is important discharge information regarding your hospital visit. Diagnosis from Today's Visit Elevated blood pressure reading What to Do Next Instructions from Your Care Team Please follow-up with a physician as discussed. Please check your blood pressure once to twice daily and keep a log of blood pressures to take to the physicians office that you follow-up with for monitoring. Please avoid medications that increase blood pressure including Sudafed and other decongestant medications [id number]. No qualifying data available. Post Acute Orders No qualifying data available. You Need to Schedule the Following Appointments Follow Up with Go to emergency room if symptoms worsen When:Within 2-4 days Follow Up with Follow up with primary care provider When:Within 2-4 days Allergies iodine Medications Please ask your primary doctor or pharmacist before taking any other medication not listed, including over the counter drugs, herbal medications, vitamins and or supplements as they may interact with your home medications. What How Much When Instructions Last Dose New benzonatate (benzonatate 100 mg oral capsule) 1 cap by mouth Three (3) times a day as needed for as needed for cough Duration: 7 Days Printed Prescription Please take this list to your next doctor s visit. Bring all medications you take, including over the counter medications, herbals and other supplements with you to your doctor s visit. Patients and families are reminded to discard old lists and to update any records with all medication providers or retail pharmacies. Education Materials High Blood Pressure, To Be Confirmed, No Treatment Your blood pressure today was higher than normal. Sometimes anxiety or pain can cause a temporary rise in blood pressure. It later returns to normal. Blood pressure that is high only one time doesn t mean that you have high blood pressure (hypertension). High blood pressure is a chronic illness. But you should have your blood pressure measured again within the next few days to find out if it s still high. Blood pressure measurements are given as 2 numbers. Systolic blood pressure is the upper number. This is the pressure when the heart contracts. Diastolic blood pressure is the lower number. This is the pressure when the heart relaxes between beats. You will see your blood pressure readings written together. For example, a person with a systolic pressure of 118 and a diastolic pressure of 78 will have 118/78 written in the medical record. Blood pressure is categorized as normal, elevated, or stage 1 or stage 2 high blood pressure: Normal blood pressure is systolic of less than 120 and diastolic of less than 80 (120/80) Elevated blood pressure is systolic of 120 to 129 and diastolic less than 80 Stage 1 high blood pressure is systolic is 130 to 139 or diastolic between 80 to 89 Stage 2 high blood pressure is when systolic is 140 or higher or the diastolic is 90 or higher Lifestyle changes such as weight loss, exercise, and quitting smoking, can help manage your blood pressure. Have your blood pressure checked regularly to be sure it is under control. Home care To track your blood pressure, your provider may ask you to come into the office at different times and on different days. If your healthcare provider asks you to check your readings at home, ask him or her what times of the day to test and for how many days. Before you leave the office, ask your provider to show you how to take your blood pressure and be sure to ask questions if you don't understand something. Consider buying an automatic blood pressure monitor. Ask your provider for a recommendation as well as the proper size cuff to fit your arm. You can buy blood pressure monitors at most pharmacies. The [place] [employer] recommends the following guidelines for home blood pressure monitoring: Don't smoke or drink coffee or other caffeinated drinks for 30 minutes before taking your blood pressure. Go to the bathroom before the test. Relax for 5 minutes before taking the measurement. Sit with your back supported (don't sit on a couch or soft chair); keep your feet on the floor uncrossed. Place your arm on a solid flat surface (like a table) with the upper part of the arm at heart level. Place the middle of the cuff directly above the bend of the elbow. Check the monitor's instruction manual for an illustration. Take multiple readings. When you measure, take 2 to 3 readings one minute apart and record all of the results. Take your blood pressure at the same time every day, or as your healthcare provider recommends. Record the date, time, and blood pressure reading. Take the record with you to your next medical appointment. If your blood pressure monitor has a built-in memory, simply take the monitor with you to your next appointment. Call your provider if you have several high readings. Don't be frightened by a single high blood pressure reading, but if you get several high readings, check in with your healthcare provider. Note: When blood pressure reaches a systolic (top number) of 180 or higher OR diastolic (bottom number) of 110 or higher, seek emergency medical treatment. Follow-up care Keep all of your follow up appointments. If your blood pressure is more than 120 over 80 on 2 out of 3 days, you will need to follow up with your healthcare provider for more evaluation and treatment. Don t put this off! High blood pressure can be treated. High blood pressure that s not treated raises your risk for heart attack, heart failure, and stroke. When to seek medical advice Call your healthcare provider right away if any of these occur: Blood pressure reaches a systolic (top number) of 180 or higher, OR diastolic (bottom number) of 110 or higher Chest pain or shortness of breath Severe headache Throbbing or rushing sound in the ears Nosebleed Sudden severe pain in your belly (abdomen) Extreme drowsiness, confusion, or fainting Dizziness or dizziness with spinning sensation (vertigo) Weakness of an arm or leg or one side of the face You have problems speaking or seeing [id number] [employer]. [address] [place] [address]. All rights reserved. This information is not intended as a substitute for professional medical care. Always follow your healthcare professional's instructions. Additional Information VACCINATE! IT SAVES LIVES! Members of the community who have not yet received the COVID-19 vaccine and would like to receive it can visit one of [facility] vaccine clinics. There are many vaccine clinic locations within the [facility]. For locations and available times, please visit [email or web address] It is important to note that some COVID mobile vaccine clinics are held outdoors and may be canceled in rainy or stormy conditions. To learn more about pediatric vaccinations (ages 5-11), we invite you to visit the [facility] webpage. [email or web address] [email or web address] To learn more about the COVID-19 vaccine, we invite you to visit the CDC website for a list of frequently asked questions. https://www.cdc.gov/coronavirus/ 2019-ncov/vaccines/faq.html [facility] [employer] Patient Portal Access Instructions: Stay connected with your healthcare team and access your personal medical information anytime with the [facility] Patient Portal. If you would like a full copy of your medical records please contact the [facility] Medical Records Department Wednesday through Wednesday between 8a.m. and 4:30p.m. Please follow the directions below to access the portal: 1.Access the email account you provided upon registration to the [facility].2.Look for an invitation email from [facility].3.Open the email and access the invitation link: Accept Invitation to [facility] [employer]4.Fill in the required lopez to create your account. Sign into [email or web address] with your username and password that you created in the above steps to stay up to date. You can then view a summary of results, a summary of your visits, and the ability to download your summaries to your computer or send the information securely to a physician. Remember that your healthcare information is confidential, so carefully consider who you will allow to register on the [facility] Patient Portal for access to your information. You can also access the [facility] Patient Portal on the [facility] [employer]. Simply click on "Health Records" under "Health Data" and then click on the [facility] logo. HOW TO SAFELY DISPOSE OF PRESCRIPTION MEDICATIONS Please use one of the following methods to safely dispose of your unused medications. 1.Use a drug disposal kit: the drug disposal pouch allows you to safely discard your old and unused drugs. Ask your nurse to give you one when you are discharged.2.Visit a local take-back location: Many local pharmacies and police departments have programs that collect old and unwanted prescription drugs. Call your local pharmacy or go to http://bit.[employer]/8V8Jc6j to find one close to you.3.Make use of household items: Use cat litter or old coffee grounds to dispose medications if other options are not available. Mix your drugs with these household products, seal them in an airtight container and throw it into the garbage. Call [facility]: [phone] to be sure your drugs can be disposed of in this way. Some medicines may require a different approach.4.Never flush your medications down the toilet. IF YOU HAVE BEEN PRESCRIBED AN OPIOIDS FOR PAIN If you have been prescribed an opioid (such as hydrocodone, oxycodone or morphine), it is critical to understand the possible side effects and risks of opioid pain medications. Even when taken as directed, opioids can have several side effects including: Tolerance, meaning you might need to take more of a medication for the same pain relief. Nausea, vomiting and/or constipation. Sleepiness, dizziness, dry mouth, confusion, depression or itching. Physical dependence, meaning you have withdrawal symptoms when a medication is stopped ? this can develop within a few days. KNOW YOUR RESPONSIBILITIES It is important to know exactly how much and how often to take the opioid pain medications you are prescribed. Never take opioids in higher amounts or more often than prescribed. Do not combine opioids with alcohol or other drugs that cause drowsiness, such as benzodiazepines, also known as benzos, including diazepam and alprazolam, muscle relaxants or sleep aids. Never sell or share prescription opioids. This is illegal. Store opioids in a secure place and out of reach of others (including children, family, friends and visitors). The last page(s) of this document has been signed and retained as a CHART [employer] Patient Education Materials Hypertension, To Be Confirmed Medication Leaflets My discharge plan and instructions have been reviewed and explained to me and I,KAPIL SALMON understand my current condition and have read and understand these discharge instructions. I have received a written copy of the plan/instructions. If I have questions, I am aware that I should contact my doctor. 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 Author Type: Nurse Practitioner Type: Progress Notes Filed: 07/19/2024 10:18 Note Text: Subjective HPI Nontoxic-appearing female presents urgent care chief complaint shortness of breath and dizziness headache sore throat cough. Duration of symptoms 1 day. Associated symptoms listed above. Presents today for evaluation. No OTC medication. No known sick contacts. States feels off this morning when she woke up. Denies any fever body aches chills hemoptysis pleuritic pain nausea vomiting abdominal pain change in bowel or bladder habits. Past medical history prescription medications allergies reviewed. .Patient presents with: Sore Throat: Cough, sob, dizziness x 1 day PAST MEDICAL HISTORY No date: Anemia No date: Attention deficit disorder with hyperactivity(314.01) No date: History of pre-eclampsia in prior , currently No date: Trauma PAST SURGICAL HISTORY 2007: [facility] 07/01/2012: [facility] No date: PAST SURGICAL HISTORY OF Comment: drained abcess from right leg No date: TONSILLECTOMY PRIMARY/SECONDARY Comment: Tonsillectomy ALLERGIES Iodine MEDICATIONS Etonogestrel-Ethinyl Estradiol (NUVARING) 0.12-0.015 mg/24 hr vaginal ring Use 1 Each vaginally as directed. Insert vaginally and leave in place for 3 consecutive weeks, then remove for 1 week. cyclobenzaprine (FLEXERIL) 10 mg tablet Take 1 tablet by mouth daily at bedtime. (Patient not taking: Reported on 03/24/2023) FAMILY HISTORY Problem Relation Age of Onset other (Fibromyalgia) Mother Cancer Father Leukemia other (ADHD) Brother other (other) Brother Psychiatry Maternal Grandfather COMMITTED SUICIDE Breast Cancer Paternal Grandmother No Known Problems Daughter Autism Daughter Breast Cancer Paternal Aunt Psychiatry Other MGUNCLE COMMITTED SUICIDE Social History Tobacco Use Smoking status: Former Current packs/day: 0.00 Average packs/day: 0.5 packs/day for 5.0 years (2.5 ttl pk-yrs) Types: Cigarettes Start date: 02/22/2018 Quit date: 02/22/2023 Years since quittin.4 Smokeless tobacco: Never Vaping Use Vaping status: Some Days Substance Use Topics Alcohol use: Yes Comment: rare, not while Drug use: No BP (!) 192/132 Pulse 84 Temp 36.4 ?C (97.6 ?F) Resp 21 Wt 89 kg (196 lb 3.4 oz) LMP 07/05/2024 SpO2 98% BMI 30.73 kg/m? Review of Systems Constitutional: Negative for chills, fever and malaise/fatigue. HENT: Positive for sore throat. Negative for congestion, ear discharge, ear pain and sinus pain. Eyes: Negative for blurred vision, pain, discharge and redness. Respiratory: Positive for cough and shortness of breath. Negative for hemoptysis, sputum production, wheezing and stridor. Cardiovascular: Negative for chest pain. Gastrointestinal: Negative for abdominal pain, diarrhea, nausea and vomiting. Musculoskeletal: Negative for myalgias. Skin: Negative for itching and rash. Neurological: Positive for headaches. Negative for dizziness. Objective Physical Exam Constitutional: General: She is not in acute distress. Appearance: She is not diaphoretic. HENT: Head: Normocephalic. Jaw: No trismus, tenderness, swelling or pain on movement. Mouth/Throat: Pharynx: Uvula midline. No pharyngeal swelling or uvula swelling. Eyes: Conjunctiva/sclera: Conjunctivae normal. Pupils: Pupils are equal, round, and reactive to light. Cardiovascular: Rate and Rhythm: Normal rate and regular rhythm. Heart sounds: Normal heart sounds. Pulmonary: Effort: Pulmonary effort is normal. No tachypnea, accessory muscle usage or respiratory distress. Breath sounds: Normal breath sounds. No stridor. No wheezing, rhonchi or rales. Musculoskeletal: Cervical back: No edema or erythema. No pain with movement. Normal range of motion. Skin: General: Skin is warm and dry. Neurological: Mental Status: She is alert and oriented to person, place, and time. ASSESSMENT/PLAN: 1. Viral illness - ICD9: 079.99, ICD10: B34.9 (primary diagnosis) - COVID AND INFLUENZA A/B AND RSV PCR, ROUTINE 2. SOB (shortness of breath) - ICD9: 786.05, ICD10: R06.02 Diagnosed with viral illness and shortness of breath. With elevated blood pressure and being symptomatic recommend patient be seen the ED for further evaluation care. Verbalized understand agrees plan of care. Will be seen at [facility]. Rommel Masterson APRN.KINA [facility] 07-19-2024 History of Presen t illness Narrative Subjective HPI Nontoxic-appearing female presents urgent care chief complaint shortness of breath and dizziness headache sore throat cough. Duration of symptoms 1 day. Associated symptoms listed above. Presents today for evaluation. No OTC medication. No known sick contacts. States feels off this morning when she woke up. Denies any fever body aches chills hemoptysis pleuritic pain nausea vomiting abdominal pain change in bowel or bladder habits. Past medical history prescription medications allergies reviewed. .Patient presents with: Sore Throat: Cough, sob, dizziness x 1 day PAST MEDICAL HISTORY No date: Anemia No date: Attention deficit disorder with hyperactivity(314.01) No date: History of pre-eclampsia in prior , currently No date: Trauma PAST SURGICAL HISTORY 2007: [facility] 07/01/2012: [facility] No date: PAST SURGICAL HISTORY OF Comment: drained abcess from right leg No date: TONSILLECTOMY PRIMARY/SECONDARY <AGE 13 Comment: Tonsillectomy ALLERGIES Iodine MEDICATIONS Etonogestrel-Ethinyl Estradiol (NUVARING) 0.12-0.015 mg/24 hr vaginal ring Use 1 Each vaginally as directed. Insert vaginally and leave in place for 3 consecutive weeks, then remove for 1 week. cyclobenzaprine (FLEXERIL) 10 mg tablet Take 1 tablet by mouth daily at bedtime. (Patient not taking: Reported on 03/24/2023) FAMILY HISTORY Problem Relation Age of Onset other (Fibromyalgia) Mother Cancer Father Leukemia other (ADHD) Brother other (other) Brother Psychiatry Maternal Grandfather COMMITTED SUICIDE Breast Cancer Paternal Grandmother No Known Problems Daughter Autism Daughter Breast Cancer Paternal Aunt Psychiatry Other MGUNCLE COMMITTED SUICIDE Social History Tobacco Use Smoking status: Former Current packs/day: 0.00 Average packs/day: 0.5 packs/day for 5.0 years (2.5 ttl pk-yrs) Types: Cigarettes Start date: 02/22/2018 Quit date: 02/22/2023 Years since quittin.4 Smokeless tobacco: Never Vaping Use Vaping status: Some Days Substance Use Topics Alcohol use: Yes Comment: rare, not while Drug use: No BP (!) 192/132 Pulse 84 Temp 36.4 C (97.6 F) Resp 21 Wt 89 kg (196 lb 3.4 oz) LMP 07/05/2024 SpO2 98% BMI 30.73 kg/m Review of Systems Constitutional: Negative for chills, fever and malaise/fatigue. HENT: Positive for sore throat. Negative for congestion, ear discharge, ear pain and sinus pain. Eyes: Negative for blurred vision, pain, discharge and redness. Respiratory: Positive for cough and shortness of breath. Negative for hemoptysis, sputum production, wheezing and stridor. Cardiovascular: Negative for chest pain. Gastrointestinal: Negative for abdominal pain, diarrhea, nausea and vomiting. Musculoskeletal: Negative for myalgias. Skin: Negative for itching and rash. Neurological: Positive for headaches. Negative for dizziness. Objective Physical Exam Constitutional: General: She is not in acute distress. Appearance: She is not diaphoretic. HENT: Head: Normocephalic. Jaw: No trismus, tenderness, swelling or pain on movement. Mouth/Throat: Pharynx: Uvula midline. No pharyngeal swelling or uvula swelling. Eyes: Conjunctiva/sclera: Conjunctivae normal. Pupils: Pupils are equal, round, and reactive to light. Cardiovascular: Rate and Rhythm: Normal rate and regular rhythm. Heart sounds: Normal heart sounds. Pulmonary: Effort: Pulmonary effort is normal. No tachypnea, accessory muscle usage or respiratory distress. Breath sounds: Normal breath sounds. No stridor. No wheezing, rhonchi or rales. Musculoskeletal: Cervical back: No edema or erythema. No pain with movement. Normal range of motion. Skin: General: Skin is warm and dry. Neurological: Mental Status: She is alert and oriented to person, place, and time. ASSESSMENT/PLAN: 1. Viral illness - ICD9: 079.99, ICD10: B34.9 (primary diagnosis) - COVID & INFLUENZA A/B & RSV PCR, ROUTINE 2. SOB (shortness of breath) - ICD9: 786.05, ICD10: R06.02 Diagnosed with viral illness and shortness of breath. With elevated blood pressure and being symptomatic recommend patient be seen the ED for further evaluation care. Verbalized understand agrees plan of care. Will be seen at [facility]. Rommel Masterson APRN.KINA documented in this encounter [facility] 03-17-2024 Telephone encounter Note Refill request received via [employer]. Patient last seen for annual exam on 03/24/23. PSS: Please contact patient to schedule annual exam. Thank you. Nelsy Metcalf RN [facility] 03-17-2024 Miscellaneous Notes Refill request received via [employer]. Patient last seen for annual exam on 03/24/23. PSS: Please contact patient to schedule annual exam. Thank you. Nelsy Metcalf RN documented in this encounter [facility] 01-05-2024 History of Presen t illness Narrative Images from the original note were not included. This note was created using [employer]. Subjective Kapil Salmon is a 33 year old female. 33 year old female with PMH ADHD and anxiety presents for complaints of dental pain. Acute onset 2 weeks ago Right upper tooth Had a filling previously, endorses that the filling fell out. Today was eating sunflower kernel seeds and states " jabbed up in there" +pain with chewing + sensitivity to hot and cold Denies tobacco usage. Denies inability to handle secretions. Denies muffled voice States she is looking for a new dentist, but has yet to establish The history is provided by the patient. No sheep sorter was used. Dental Problem This is a new problem. The current episode started 1 to 4 weeks ago. The problem occurs constantly. The problem has been gradually worsening. Pertinent negatives include no abdominal pain, anorexia, arthralgias, change in bowel habit, chest pain, chills, congestion, coughing, diaphoresis, fatigue, fever, headaches, joint swelling, myalgias, nausea, neck pain, numbness, rash, sore throat, swollen glands, urinary symptoms, vertigo, visual change, vomiting or weakness. Nothing aggravates the symptoms. She has tried nothing for the symptoms. The treatment provided no relief. PAST MEDICAL HISTORY Diagnosis Date Anemia Attention deficit disorder with hyperactivity(314.01) History of pre-eclampsia in prior , currently Trauma PAST SURGICAL HISTORY Procedure Laterality Date [facility] 2006 [facility] 07/01/2012 PAST SURGICAL HISTORY OF drained abcess from right leg TONSILLECTOMY PRIMARY/SECONDARY <AGE 13 Tonsillectomy ALLERGIES Iodine MEDICATIONS Etonogestrel-Ethinyl Estradiol (NUVARING) 0.12-0.015 mg/24 hr vaginal ring Use 1 Each vaginally as directed. Insert vaginally and leave in place for 3 consecutive weeks, then remove for 1 week. amoxicillin-clavulanate potassium (AUGMENTIN) 875-125 mg per tablet Take 1 tablet by mouth two times a day for 10 days. cyclobenzaprine (FLEXERIL) 10 mg tablet Take 1 tablet by mouth daily at bedtime. (Patient not taking: Reported on 03/24/2023) FAMILY HISTORY Problem Relation Age of Onset other (Fibromyalgia) Mother Cancer Father Leukemia other (ADHD) Brother other (other) Brother Psychiatry Maternal Grandfather COMMITTED SUICIDE Breast Cancer Paternal Grandmother No Known Problems Daughter Autism Daughter Breast Cancer Paternal Aunt Psychiatry Other MGUNCLE COMMITTED SUICIDE Social History Tobacco Use Smoking status: Former Packs/day: 0.50 Years: 5.00 Additional pack years: 0.00 Total pack years: 2.50 Types: Cigarettes Quit date: 02/22/2023 Years since quittin.8 Smokeless tobacco: Never Vaping Use Vaping Use: Some days Substance Use Topics Alcohol use: Yes Comment: rare, not while Drug use: No Review of Systems Constitutional: Negative for chills, diaphoresis, fatigue and fever. HENT: Positive for dental problem. Negative for congestion, postnasal drip, rhinorrhea, sinus pressure, sinus pain and sore throat. Eyes: Negative for pain, discharge and itching. Respiratory: Negative for cough. Cardiovascular: Negative for chest pain. Gastrointestinal: Negative for abdominal pain, anorexia, change in bowel habit, nausea and vomiting. Musculoskeletal: Negative for arthralgias, joint swelling, myalgias and neck pain. Skin: Negative for color change, pallor and rash. Allergic/Immunologic: Negative for environmental allergies, food allergies and immunocompromised state. Neurological: Negative for dizziness, vertigo, facial asymmetry, weakness, numbness and headaches. Hematological: Negative for adenopathy. Does not bruise/bleed easily. Psychiatric/Behavioral: Negative for agitation and behavioral problems. Objective BP 120/72 Pulse 92 Temp 36.2 C (97.1 F) Resp 16 Wt 88.9 kg (196 lb) LMP 03/11/2023 SpO2 99% BMI 30.70 kg/m Physical Exam Vitals and nursing note reviewed. Constitutional: General: She is not in acute distress. Appearance: Normal appearance. She is normal weight. She is not ill-appearing, toxic-appearing or diaphoretic. HENT: Head: Normocephalic and atraumatic. Right Ear: Ear canal and external ear normal. Left Ear: Ear canal and external ear normal. Nose: Nose normal. No congestion or rhinorrhea. Mouth/Throat: Mouth: Mucous membranes are moist. Pharynx: No oropharyngeal exudate or posterior oropharyngeal erythema. Eyes: General: Right eye: No discharge. Left eye: No discharge. Extraocular Movements: Extraocular movements intact. Conjunctiva/sclera: Conjunctivae normal. Pupils: Pupils are equal, round, and reactive to light. Cardiovascular: Rate and Rhythm: Normal rate and regular rhythm. Pulses: Normal pulses. Heart sounds: Normal heart sounds. No murmur heard. No friction rub. Pulmonary: Effort: Pulmonary effort is normal. No respiratory distress. Breath sounds: Normal breath sounds. No stridor. No wheezing, rhonchi or rales. Chest: Chest wall: No tenderness. Abdominal: General: Abdomen is flat. There is no distension. Palpations: Abdomen is soft. There is no mass. Tenderness: There is no abdominal tenderness. There is no right CVA tenderness, left CVA tenderness, guarding or rebound. Hernia: No hernia is present. Musculoskeletal: General: No swelling, tenderness, deformity or signs of injury. Normal range of motion. Cervical back: Normal range of motion and neck supple. No rigidity. Right lower leg: No edema. Left lower leg: No edema. Lymphadenopathy: Cervical: No cervical adenopathy. Skin: General: Skin is warm and dry. Capillary Refill: Capillary refill takes less than 2 seconds. Coloration: Skin is not jaundiced or pale. Findings: No bruising, erythema, lesion or rash. Neurological: General: No focal deficit present. Mental Status: She is alert and oriented to person, place, and time. Cranial Nerves: No cranial nerve deficit. Sensory: No sensory deficit. Motor: No weakness. Coordination: Coordination normal. Gait: Gait normal. Psychiatric: Mood and Affect: Mood normal. Behavior: Behavior normal. Thought Content: Thought content normal. Judgment: Judgment normal. Assessment and Plan ASSESSMENT/PLAN: 1. Pain, dental - ICD9: 525.9, ICD10: K08.89 X 2 weeks Endorses that part of an old filling fell out +sensitive hot and cold No red flags Will cover with Augmentin Encouraged to follow up with PCP SAL Oswald APRN.MID WIFE documented in this encounter [facility] 05-31-2023 History of Presen t illness Narrative Images from the original note were not included. This note was created using [employer]. Subjective Kapil Salmon is a 32 year old female. HPI Presents with redness and swelling to her bilateral upper and lower eyelids. Very itchy. She had used an old make-up brush that she thinks is the culprit. She had washed it beforehand but the rash is nowhere else and that the only thing she can think of that she change. She tried some Blistex on it which seemed to help with the itching some. She denies history of eczema or psoriasis. No new soaps or detergents. No new medications. No fevers or chills. No URI symptoms. No travel recently. Review of Systems HENT: Negative. Eyes: Positive for redness and itching. Negative for photophobia, pain, discharge and visual disturbance. Respiratory: Negative. Cardiovascular: Negative. Gastrointestinal: Negative. All other systems reviewed and are negative. PAST MEDICAL HISTORY Diagnosis Date Anemia Attention deficit disorder with hyperactivity(314.01) History of pre-eclampsia in prior , currently Trauma Current Outpatient Medications Medication Sig Dispense Refill Etonogestrel-Ethinyl Estradiol (NUVARING) 0.12-0.015 mg/24 hr vaginal ring Use 1 Each vaginally as directed. Insert vaginally and leave in place for 3 consecutive weeks, then remove for 1 week. 1 Each 11 predniSONE (DELTASONE) 10 mg tablet Take 4 tabs daily for 3 days, then 2 tabs daily for 3 days, then 1 tab daily for 3 days with food. 21 tablet 0 cyclobenzaprine (FLEXERIL) 10 mg tablet Take 1 tablet by mouth daily at bedtime. (Patient not taking: Reported on 03/24/2023) 3 tablet 0 No current facility-administered medications for this visit. PAST SURGICAL HISTORY Procedure Laterality Date [facility] 2006 [facility] 07/01/2012 PAST SURGICAL HISTORY OF drained abcess from right leg TONSILLECTOMY PRIMARY/SECONDARY <AGE 13 Tonsillectomy FAMILY HISTORY Problem Relation Age of Onset other (Fibromyalgia) Mother Cancer Father Leukemia other (ADHD) Brother other (other) Brother Psychiatry Maternal Grandfather COMMITTED SUICIDE Breast Cancer Paternal Grandmother No Known Problems Daughter Autism Daughter Breast Cancer Paternal Aunt Psychiatry Other MGUNCLE COMMITTED SUICIDE Social History Tobacco Use Smoking status: Former Packs/day: 0.50 Years: 5.00 Total pack years: 2.50 Types: Cigarettes Quit date: 02/22/2023 Years since quittin.2 Smokeless tobacco: Never Vaping Use Vaping Use: Some days Substance Use Topics Alcohol use: Yes Comment: rare, not while Drug use: No Objective BP 122/68 Pulse 92 Temp 36.6 C (97.8 F) Resp 16 Wt 88 kg (194 lb) LMP 03/11/2023 SpO2 98% BMI 30.38 kg/m Physical Exam Vitals reviewed. Constitutional: Appearance: Normal appearance. Eyes: Comments: Patient has erythema and swelling to the bilateral upper eyelids to the eyebrows. Also has erythema which appears dry to the lower eyelid and face. No actual eye globe involvement. No injection of the sclera or erythema of the conjunctive a. No swelling of the conjunctive a. PERRLA and EOMI. Skin: General: Skin is warm and dry. Findings: Rash present. Neurological: General: No focal deficit present. Mental Status: She is alert. Assessment and Plan ASSESSMENT/PLAN: 1. Irritant contact dermatitis due to cosmetics - ICD9: 692.81, ICD10: L24.3 Recommended she get rid of the make-up brush. I will treat with a prednisone taper. Discussed using Aquaphor over the area. Follow-up with PCP if not improving. Mary Otero PA-C documented in this encounter [facility] 03-24-2023 History of Presen t illness Narrative Kapil is a 32 year old who presents for an annual gynecologic exam without complaints. 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 Full care of non verbal, autistic 4 year old daughter. Menses: cycles every 30 lasting 5-7 days of flow. 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 History Comments: Sexual Activity: Yes; Male Contraception: No contraception data on record PAST MEDICAL HISTORY Diagnosis Date Anemia Attention deficit disorder with hyperactivity(314.01) History of pre-eclampsia in prior , currently Trauma PAST SURGICAL HISTORY Procedure Laterality Date [facility] 2006 [facility] 07/01/2012 PAST SURGICAL HISTORY OF drained abcess from right leg TONSILLECTOMY PRIMARY/SECONDARY <AGE 13 Tonsillectomy FAMILY HISTORY Problem Relation Age of Onset other (Fibromyalgia) Mother Cancer Father Leukemia other (ADHD) Brother Psychiatry Maternal Grandfather COMMITTED SUICIDE Breast Cancer Paternal Grandmother Breast Cancer Paternal Aunt Psychiatry Other MGUNCLE COMMITTED SUICIDE SOCIAL HISTORY Social History Tobacco Use Smoking status: Every Day Packs/day: 0.50 Years: 5.00 Pack years: 2.50 Types: Cigarettes Smokeless tobacco: Never Substance Use Topics Alcohol use: Yes Comment: rare, not while Drug use: No REVIEW OF SYSTEMS Abdomen: No abdominal pain, nausea, vomiting, diarrhea, or constipation. No bloating, early satiety, indigestion, or increased flatulence. Bladder: No dysuria, gross hematuria. POSITIVE FOR INCONTINENCE and URGENCY. Feels like she "never fully empties bladder". She has a history of being seen by Urology. Breast: No breast lumps, nipple d/c, overlying skin changes, redness or skin retraction. Allergies and current medication updated:Yes EXAM: BP 130/86 Ht 5' 7" (1.70m) Wt 190 lb (86.2kg) LMP 03/11/2023 BMI 29.75 kg/(m^2). GENERAL: pleasant, female in no apparent distress HEENT: Normocephalic, atraumatic, mucus membranes moist, and no lesions NECK: Supple, full range of motion, no adenopathy, and thyroid normal DERMATOLOGY: Normal, without lesions, non-icteric, and non-hirsute BREAST: soft, non-tender, symmetric, no dominant mass, normal nipple-areolar complex, no lymphadenopathy, and no nipple discharge CHEST: Normal inspiratory effort ABDOMEN: soft, non-tender, and no masses PELVIC: external genitalia normal, normal Bartholin's glands, urethra, [place]'s glands, no vulvar lesions, no cervical lesions, good vaginal support, physiologic discharge present, normal appearing perineal body and perianal region BIMANUAL: uterus normal size, shape and consistency, no adnexal masses, non-tender, and no cervical motion tenderness RECTOVAGINAL: deferred. NEURO: alert and oriented x3,exam grossly non-focal EXTREMITIES: normal ASSESSMENT/PLAN: 1) Health maintenance: Pap done with HPV. Nutrition, exercise and routine health maintenance exams reviewed. Consult to URO/DAY CARE ATTENDANT - per patient's request 2) Contraception: Nuva Ring. Contraceptive options reviewed and information provided. 3) STD screening: Declined STD check. 4) Follow up one year or sooner as needed Salome Prabhakar APRN.CNM documented in this encounter [facility] 11-25-2022 History of Presen t illness Narrative Images from the original note were not included. Subjective Neck Pain Pertinent negatives include no fever, headaches or photophobia. Kapil Salmon is a 32 year old female who presents with right sided neck pain. This started yesterday. She also had a headache yesterday but the headache is gone now. She took Naproxen for pain. She rates the pain 6/10. She denies injury. She states the pain is dull at rest and sharp with movement of her head. No radiation of pain to shoulder or arm. She denies ear pain or sore throat. She has not had a fever. No visual changes. Review of Systems Constitutional: Negative for chills and fever. HENT: Negative for ear pain and sore throat. Eyes: Negative for blurred vision, double vision and photophobia. Respiratory: Negative. Cardiovascular: Negative. Musculoskeletal: Positive for neck pain. Negative for back pain and falls. Skin: Negative. Neurological: Negative for dizziness and headaches. BP 136/94 Pulse 76 Temp 36.3 C (97.3 F) Resp 20 Wt 90.2 kg (198 lb 12.8 oz) LMP 11/18/2019 SpO2 99% BMI 30.23 kg/m PAST MEDICAL HISTORY Diagnosis Date Anemia Attention deficit disorder with hyperactivity(314.01) History of pre-eclampsia in prior , currently Trauma PAST SURGICAL HISTORY Procedure Laterality Date MIRENA 2006 [facility] 07/01/2012 PAST SURGICAL HISTORY OF drained abcess from right leg TONSILLECTOMY PRIMARY/SECONDARY <AGE 13 Tonsillectomy ALLERGIES Iodine MEDICATIONS predniSONE (DELTASONE) 20 mg tablet Take 2 tablets by mouth once daily for 4 days. Take daily with food. cyclobenzaprine (FLEXERIL) 10 mg tablet Take 1 tablet by mouth daily at bedtime. Etonogestrel-Ethinyl Estradiol (NUVARING) 0.12-0.015 mg/24 hr vaginal ring Use 1 Each vaginally as directed. Insert vaginally and leave in place for 3 consecutive weeks, then remove for 1 week. (Patient not taking: Reported on 10/24/2020 ) FAMILY HISTORY Problem Relation Age of Onset other (Fibromyalgia) Mother Cancer Father Leukemia other (ADHD) Brother Psychiatry Maternal Grandfather COMMITTED SUICIDE Breast Cancer Paternal Grandmother Breast Cancer Paternal Aunt Psychiatry Other MGUNCLE COMMITTED SUICIDE Social History Tobacco Use Smoking status: Every Day Packs/day: 0.50 Years: 5.00 Pack years: 2.50 Types: Cigarettes Smokeless tobacco: Never Substance Use Topics Alcohol use: Yes Comment: rare, not while Drug use: No Objective Physical Exam Vitals and nursing note reviewed. Constitutional: Appearance: Normal appearance. HENT: Right Ear: Tympanic membrane, ear canal and external ear normal. Left Ear: Tympanic membrane, ear canal and external ear normal. Nose: Nose normal. Mouth/Throat: Mouth: Mucous membranes are moist. Pharynx: Oropharynx is clear. Uvula midline. No oropharyngeal exudate or posterior oropharyngeal erythema. Neck: Cardiovascular: Rate and Rhythm: Normal rate and regular rhythm. Heart sounds: Normal heart sounds. Pulmonary: Effort: Pulmonary effort is normal. No respiratory distress. Breath sounds: Normal breath sounds. No wheezing or rales. Musculoskeletal: Cervical back: Neck supple. No edema, signs of trauma, rigidity or crepitus. Pain with movement and muscular tenderness present. No spinous process tenderness. Normal range of motion. Lymphadenopathy: Cervical: No cervical adenopathy. Skin: General: Skin is warm and dry. Findings: No erythema or rash. Neurological: Mental Status: She is alert. ASSESSMENT/PLAN: 1. Acute neck pain - ICD9: 723.1, ICD10: M54.2 - PREDNISONE 20 MG TABLET - CYCLOBENZAPRINE 10 MG TABLET- take at bedtime. - gentle range of motion exercises when pain is improving - massage may be helpful - Follow-up with your PCP in 3-5 days if symptoms have not improved or sooner if symptoms worsen - Discussed red flags and need for immediate medical evaluation if any occur. - Discussed supportive care treatment with fluids, rest and analgesia. - Discussed expected course of illness Ros Fenton APRN.CNP documented in this encounter [facility] 11-25-2022 Instructions Ros Fenton APRN.CNP - 11/25/2022 2:40 PM EST ASSESSMENT/PLAN: 1. Acute neck pain - ICD9: 723.1, ICD10: M54.2 - PREDNISONE 20 MG TABLET - CYCLOBENZAPRINE 10 MG TABLET - gentle range of motion exercises when pain is improving - massage may be helpful - Follow-up with your PCP in 3-5 days if symptoms have not improved or sooner if symptoms worsen - Discussed red flags and need for immediate medical evaluation if any occur. - Discussed supportive care treatment with fluids, rest and analgesia. - Discussed expected course of illness Ros Fenton APRN.KINA NECK STRAIN GENERAL INFORMATION: Neck strains are caused when the muscles of the neck are stretched and pulled. This can happen in a car accident or when wrestling, but can also occur with minor activity. Sometimes people even wake up from sleep with a neck strain! INSTRUCTIONS: 1. Reduce your activity until the pain is improved; rest in bed if needed. 2. If you can stand it, applying ice for the first 24 - 48 hours may keep the swelling down. Place ice in a plastic bag and apply over a towel for 10 minutes at a time. Some people find this too uncomfortable, and prefer warm compresses. In this case, apply a warm heating pad or warm, moist towels for 10 minutes at a time. This can be continued after the initial 48 hours as well to speed healing and for comfort. 3. If the physician has not prescribed medication, you may take acetaminophen, ibuprofen, or naproxen [id number]. Read the instructions and follow any precautions, however. If the doctor has prescribed medication, take it exactly as recommended. Muscle relaxants and strong pain medications can make you drowsy, so avoid driving and operating dangerous machinery if you are taking any of these. 4. Sleeping without a pillow may help ease the pain. You also may sleep with a cervical pillow (a special pillow you can buy at a medical supply store). You also may use a small towel rolled up tightly (2 inches thick) and place it under your neck. RETURN IMMEDIATELY IF: 1. You have pain, numbness, tingling, or weakness of your arms, legs, face, or scalp. 2. You have shortness of breath, a hoarse voice, or difficulty swallowing. 3. You have increasing headaches or difficulty seeing. documented in this encounter [facility] 08-28-2022 Miscellaneous Notes Finally reached patient by phone, patient was verbally given results and also viewed results on appsFreedomt. Esther Weaver MA Still unable to reach patient.Kecia Falcon LPN Still unable to reach patient.Kecia Falcon LPN Unable to reach patient and mailbox is full-will try later.Kecia Falcon LPN ----- Message from Ros Fenton APRN.MID WIFE sent at 08/25/2022 9:16 AM EDT ----- Please advise patient of positive COVID test. The CDC recommends that people refrain from work and isolate themselves until the following criteria are met: At least 24 hours have passed since last fever without the use of fever-reducing medications Other symptoms have improved At least 5 days have passed since symptoms first appeared; then wear a mask for an additional 5 days. documented in this encounter [facility] 07-06-2018 History of Past i llness Narrative Problem Noted Date Resolved Date Anemia during in third trimester 07/0611/04/2018 Overview: 07/05/18 H/H 10.4/33.8. Please notify - 1 hr GCT elevated. Start Fe sulfate 325 mg twice daily on Mondays, Wednesdays and Fridays. Florencia Freeman APRN.MID WIFE Abnormal glucose in , antepartum 201711/04/2018 Overview: 07/05/18 1 hr GCT 139. 07/08/18 3 Hr GTT normal. Florencia Freeman APRN.MID WIFE Rh negative status during 03/23/2018 11/04/2018 Overview: O neg Florencia Freeman APRN.MID WIFE Positive urine drug screen 02/23/201811/04 Overview: 02/22/18 Positive cannabinoids. Florencia Freeman APRN.MID WIFE Tobacco use during , antepartum 017 11/04/2018 Overview: 05/05/18- No smoking for past week. Planning continued cessation for . Using NRT, has 2 weeks left of 10mg patch. Lori Epps APRN.CNM 05/27/2017Pt smokes 1/2 pack a day os cigarettes, down from 1 pack a day. Discussed risks of smoking during . Advised pt to quit. TKRN Patient requested diagnostic testing 05/27/2017 11/04/2018 Overview: 05/27/2017Patient desires nuchal ultrasound. TKRN February 22, 2018 Desires sequential screen and CF screen. Liudmila Ragland MD UTI (urinary tract infection) in , ante 05/17/2017 11/04/2018 Overview: 05/13/17 Treated w/ macrobid. Liudmila Ragland MD 05/27/2017Patient seen 05/13 for pelvic pain.Patient was treated for a UTI 05/13. She has been followed with quantitative HCG. She denies any pain since then. Denies bleeding. She has an upcoming ultrsaound on 06/01/2017. She is to call/come in if she develops any pain, bleeding or PRN problems. TKRN Viral warts, unspecified 08/09/2008 012 Elevated blood pressure read ing without diagnosis of hypertension 07/13/2007 06/30/2012 PAIN BACK, LOW 07/13/2007 02/22/2018 Other malaise and fatigue 07/13/20072017 Supervision of normal first 09/07/2006 06/30/2012 Unspecified high-risk 08/30/2006 06/30/2012 Open wound of knee, leg (exc ept thigh), and ankle, without mention of complication 06/08/2006 06/30/2012 documented as of this encounter (statuses as of 08/21/2022) [facility] History of Past illness Narrative* Problem Noted Date Resolved Date Anemia during in third trimester 07/0611/04/2018 Overview: 07/05/18 H/H 10.4/33.8. Please notify - 1 hr GCT elevated. Start Fe sulfate 325 mg twice daily on Mondays, Wednesdays and Fridays. Florencia Freeman APRN.MID WIFE Abnormal glucose in , antepartum 201711/04/2018 Overview: 07/05/18 1 hr GCT 139. 07/08/18 3 Hr GTT normal. Florencia Freeman APRN.MID WIFE Rh negative status during 03/23/2018 11/04/2018 Overview: O neg Florencia Freeman APRN.MID WIFE Positive urine drug screen 02/23/201811/04 Overview: 02/22/18 Positive cannabinoids. Florencia Freeman APRN.MID WIFE Tobacco use during , antepartum 017 11/04/2018 Overview: 05/05/18- No smoking for past week. Planning continued cessation for . Using NRT, has 2 weeks left of 10mg patch. Lori Epps APRN.CNM 05/27/2017Pt smokes 1/2 pack a day os cigarettes, down from 1 pack a day. Discussed risks of smoking during . Advised pt to quit. TKRN Patient requested diagnostic testing 05/27/2017 11/04/2018 Overview: 05/27/2017Patient desires nuchal ultrasound. TKRN February 22, 2018 Desires sequential screen and CF screen. Liudmila Ragland MD UTI (urinary tract infection) in , ante 05/17/2017 11/04/2018 Overview: 05/13/17 Treated w/ macrobid. Liudmila Ragland MD 05/27/2017Patient seen 05/13 for pelvic pain.Patient was treated for a UTI 05/13. She has been followed with quantitative HCG. She denies any pain since then. Denies bleeding. She has an upcoming ultrsaound on 06/01/2017. She is to call/come in if she develops any pain, bleeding or PRN problems. TKRN Viral warts, unspecified 08/09/2008 012 Elevated blood pressure read ing without diagnosis of hypertension 07/13/2007 06/30/2012 PAIN BACK, LOW 07/13/2007 02/22/2018 Other malaise and fatigue 07/13/20072017 Supervision of normal first 09/07/2006 06/30/2012 Unspecified high-risk 08/30/2006 06/30/2012 Open wound of knee, leg (exc ept thigh), and ankle, without mention of complication 06/08/2006 06/30/2012 documented as of this encounter (statuses as of 08/28/2022) [facility] History of Past illness Narrative* Problem Noted Date Resolved Date Anemia during in third trimester 07/0611/04/2018 Overview: 07/05/18 H/H 10.4/33.8. Please notify - 1 hr GCT elevated. Start Fe sulfate 325 mg twice daily on Mondays, Wednesdays and Fridays. Florencia Freeman APRN.KINA Abnormal glucose in , antepartum 201711/04/2018 Overview: 07/05/18 1 hr GCT 139. 07/08/18 3 Hr GTT normal. Florencia Freeman APRN.MID WIFE Rh negative status during 03/23/2018 11/04/2018 Overview: O neg Florencia Freeman APRN.KINA Positive urine drug screen 02/23/201811/04 Overview: 02/22/18 Positive cannabinoids. Florencia Freeman APRN.KINA Tobacco use during , antepartum 017 11/04/2018 Overview: 05/05/18- No smoking for past week. Planning continued cessation for . Using NRT, has 2 weeks left of 10mg patch. Lori Epps APRN.CNM 05/27/2017Pt smokes 1/2 pack a day os cigarettes, down from 1 pack a day. Discussed risks of smoking during . Advised pt to quit. TKRN Patient requested diagnostic testing 05/27/2017 11/04/2018 Overview: 05/27/2017Patient desires nuchal ultrasound. TKRN February 22, 2018 Desires sequential screen and CF screen. Liudmila Ragland MD UTI (urinary tract infection) in , ante 05/17/2017 11/04/2018 Overview: 05/13/17 Treated w/ macrobid. Liudmila Ragland MD 05/27/2017Patient seen 05/13 for pelvic pain.Patient was treated for a UTI 05/13. She has been followed with quantitative HCG. She denies any pain since then. Denies bleeding. She has an upcoming ultrsaound on 06/01/2017. She is to call/come in if she develops any pain, bleeding or PRN problems. TKRN Viral warts, unspecified 08/09/2008 012 Elevated blood pressure read ing without diagnosis of hypertension 07/13/2007 06/30/2012 PAIN BACK, LOW 07/13/2007 02/22/2018 Other malaise and fatigue 07/13/20072017 Supervision of normal first 09/07/2006 06/30/2012 Unspecified high-risk 08/30/2006 06/30/2012 Open wound of knee, leg (exc ept thigh), and ankle, without mention of complication 06/08/2006 06/30/2012 documented as of this encounter (statuses as of 11/27/2022) [facility] History of Past illness Narrative* Problem Noted Date Resolved Date Anemia during in third trimester 07/0611/04/2018 Overview: 07/05/18 H/H 10.4/33.8. Please notify - 1 hr GCT elevated. Start Fe sulfate 325 mg twice daily on Mondays, Wednesdays and Fridays. Florencia Freeman APRN.MID WIFE Abnormal glucose in , antepartum 201711/04/2018 Overview: 07/05/18 1 hr GCT 139. 07/08/18 3 Hr GTT normal. Florencia Freeman APRN.MID WIFE Rh negative status during 03/23/2018 11/04/2018 Overview: O neg Florencia Freeman APRN.MID WIFE Positive urine drug screen 02/23/201811/04 Overview: 02/22/18 Positive cannabinoids. Florencia Freeman APRN.MID WIFE Tobacco use during , antepartum 017 11/04/2018 Overview: 05/05/18- No smoking for past week. Planning continued cessation for . Using NRT, has 2 weeks left of 10mg patch. Lori Epps APRN.CNM 05/27/2017Pt smokes 1/2 pack a day os cigarettes, down from 1 pack a day. Discussed risks of smoking during . Advised pt to quit. TKRN Patient requested diagnostic testing 05/27/2017 11/04/2018 Overview: 05/27/2017Patient desires nuchal ultrasound. TKRN February 22, 2018 Desires sequential screen and CF screen. Liudmila Ragland MD UTI (urinary tract infection) in , ante 05/17/2017 11/04/2018 Overview: 05/13/17 Treated w/ macrobid. Liudmila Ragland MD 05/27/2017Patient seen 05/13 for pelvic pain.Patient was treated for a UTI 05/13. She has been followed with quantitative HCG. She denies any pain since then. Denies bleeding. She has an upcoming ultrsaound on 06/01/2017. She is to call/come in if she develops any pain, bleeding or PRN problems. TKRN Viral warts, unspecified 08/09/2008 012 Elevated blood pressure read ing without diagnosis of hypertension 07/13/2007 06/30/2012 PAIN BACK, LOW 07/13/2007 02/22/2018 Other malaise and fatigue 07/13/20072017 Supervision of normal first 09/07/2006 06/30/2012 Unspecified high-risk 08/30/2006 06/30/2012 Open wound of knee, leg (exc ept thigh), and ankle, without mention of complication 06/08/2006 06/30/2012 documented as of this encounter (statuses as of 03/25/2023) [facility] History of Past illness Narrative* Problem Noted Date Diagnosed Date Resolved Date Anemia during in third trimester 07/06/2018 11/04/2018 Overview: 07/05/18 H/H 10.4/33.8. Please notify - 1 hr GCT elevated. Start Fe sulfate 325 mg twice daily on Mondays, Wednesdays and Fridays. Florencia Freeman APRN.MID WIFE Abnormal glucose in , antepartum 07/06/2018 11/04/2018 Overview: 07/05/18 1 hr GCT 139. 07/08/18 3 Hr GTT normal. Florencia Freeman APRN.MID WIFE Rh negative status during 03/23/2018 11/04/2018 Overview: O neg Florencia Freeman APRN.MID WIFE Positive urine drug screen 02/23/2018 1 01/05/2018 Overview: 02/22/18 Positive cannabinoids. Florencia Freeman APRN.MID WIFE Tobacco use during , antepartum 05/27/2017 11/04/2018 Overview: 05/05/18- No smoking for past week. Planning continued cessation for . Using NRT, has 2 weeks left of 10mg patch. Lori Epps APRN.CNM 05/27/2017Pt smokes 1/2 pack a day os cigarettes, down from 1 pack a day. Discussed risks of smoking during . Advised pt to quit. TKRN Patient requested diagnostic testing 05/27/2017 11/04/2018 Overview: 05/27/2017Patient desires nuchal ultrasound. TKRN February 22, 2018 Desires sequential screen and CF screen. Liudmila Ragland MD UTI (urinary tract infection ) in , antepartum 05/17/2017 11/04/2018 Overview: 05/13/17 Treated w/ macrobid. Liudmila Ragland MD 05/27/2017Patient seen 05/13 for pelvic pain.Patient was treated for a UTI 05/13. She has been followed with quantitative HCG. She denies any pain since then. Denies bleeding. She has an upcoming ultrsaound on 06/01/2017. She is to call/come in if she develops any pain, bleeding or PRN problems. TKRN Viral warts, unspecified 08/09/200807/2012 Elevated blood pressure read ing without diagnosis of hypertension 07/13/2007 06/30/2012 PAIN BACK, LOW 07/13/2007 02/22/2018 Other malaise and fatigue 07/13/2007 Supervision of normal first 09/07/2006 06/30/2012 Unspecified high-risk 08/30/2006 06/30/2012 Open wound of knee, leg (exc ept thigh), and ankle, without mention of complication 06/08/2006 0 06/30/2012 documented as of this encounter (statuses as of 05/31/2023) [facility] History of Past illness Narrative* Problem Noted Date Diagnosed Date Resolved Date Anemia during in third trimester 07/06/2018 11/04/2018 Overview: 07/05/18 H/H 10.4/33.8. Please notify - 1 hr GCT elevated. Start Fe sulfate 325 mg twice daily on Mondays, Wednesdays and Fridays. Florencia Freeman APRN.MID WIFE Abnormal glucose in , antepartum 07/06/2018 11/04/2018 Overview: 07/05/18 1 hr GCT 139. 07/08/18 3 Hr GTT normal. Florencia Freeman APRN.MID WIFE Rh negative status during 03/23/2018 11/04/2018 Overview: O neg Florencia Freeman APRN.MID WIFE Positive urine drug screen 02/23/2018 1 01/05/2018 Overview: 02/22/18 Positive cannabinoids. Florencia Freeman APRN.MID WIFE Tobacco use during , antepartum 05/27/2017 11/04/2018 Overview: 05/05/18- No smoking for past week. Planning continued cessation for . Using NRT, has 2 weeks left of 10mg patch. Lori Epps APRN.CNM 05/27/2017Pt smokes 1/2 pack a day os cigarettes, down from 1 pack a day. Discussed risks of smoking during . Advised pt to quit. TKRN Patient requested diagnostic testing 05/27/2017 11/04/2018 Overview: 05/27/2017Patient desires nuchal ultrasound. TKRN February 22, 2018 Desires sequential screen and CF screen. Liudmila Ragland MD UTI (urinary tract infection ) in , antepartum 05/17/2017 11/04/2018 Overview: 05/13/17 Treated w/ macrobid. Liudmila Ragland MD 05/27/2017Patient seen 05/13 for pelvic pain.Patient was treated for a UTI 05/13. She has been followed with quantitative HCG. She denies any pain since then. Denies bleeding. She has an upcoming ultrsaound on 06/01/2017. She is to call/come in if she develops any pain, bleeding or PRN problems. TKRN Viral warts, unspecified 08/09/200807/2012 Elevated blood pressure read ing without diagnosis of hypertension 07/13/2007 06/30/2012 PAIN BACK, LOW 07/13/2007 02/22/2018 Other malaise and fatigue 07/13/2007 Supervision of normal first 09/07/2006 06/30/2012 Unspecified high-risk 08/30/2006 06/30/2012 Open wound of knee, leg (exc ept thigh), and ankle, without mention of complication 06/08/2006 0 06/30/2012 documented as of this encounter (statuses as of 01/05/2024) [facility] + Plan note No data available for this section [facility] Evaluation note* Diagnosis Acute neck pain- Primary Cervicalgia documented in this encounter [facility] noteNo assessment information availableWSumma [facility] Work Phone: Evaluation note* Diagnosis Encounter for gynecological examination (general) (routine) without abnormal findings- Primary Screening for cervical cancer Screening for malignant neoplasm of the cervix Encounter for screening for human papillomavirus (HPV) Special screening examination for human papillomavirus (HPV) Urinary urgency Urgency of urination Mixed incontinence Mixed incontinence urge and stress (male)(female) documented in this encounter [facility] note* Diagnosis Irritant contact dermatitis due to cosmetics- Primary Dermatitis due to cosmetics documented in this encounter [facility] note* Diagnosis Pain, dental- Primary Unspecified disorder of the teeth and supporting structures documented in this encounter [facility] note* Diagnosis Viral illness- Primary Unspecified viral infection, in conditions classified elsewhere and of unspecified site SOB (shortness of breath) Shortness of breath documented in this encounter [facility] note* Diagnosis Left-sided chest pain- Primary SOB (shortness of breath) Shortness of breath [facility] Additional Instructions Please take naproxen, Tylenol as directed for pain relief. Please return if develop numbness, weakness, loss sensation in the upper extremities, fever, decrease in vision slurred speech facial drooping or other concerning neurologic symptoms. Please follow-up with your primary care physician the next available appointment.[facility] Work Phone: Hospital Discharge instructions Additional Instructions You have a urinary tract infection. Your labs and CT scan look normal with no signs of kidney stone or kidney infection. However with the pain moving up your back we will give you an antibiotic that will cover both kidney and urine infections called Bactrim. Take all of this medication. If symptoms worsen come back to the emergency room.[facility] Work Phone: Hospital Discharge instructions Additional Instructions Apply warm compresses to the area, continue the benzoyl peroxide. Return for any worsening symptoms.[facility] Work Phone: Reason for referral (narrative)No reason for referral information availableWSumma [facility] Work Phone: Health Concerns Infection Onset Date Last Indicated Resolved Time COVID-19 Confirmed 08/22/2022 08/22/2022 Chief Complaint and Reason for Visit Chief Complaint neck pin Chief Complaint neck pin gu issues Chief Complaint Admit Date WOUND February 11, 2025 10: 54am Advance Directives Advance Directive Response Recorded Date/ Time Living Will No November 30 10:24am Power of Laboratory [place] No November 30 023 10:24am Advance Directive Response Recorded Date/ Time Living Will No January 29, 2023 11:57am Power of Laboratory [place] No January 29 11:57am Advance Directive Response Recorded Date/ Time Living Will No February 11, 2025 11:07am Do you have a Healthcare Power of Laboratory Cureman? No February 11, 2025 11:07am Reason for Referral Specialty Diagnoses / Procedures Referred By Katherine mcintyre Referred To Contact Diagnoses Urinary urgency Mixed incontinence Procedures CONSULT TO URO GYNECOLOGY OFFICE/OUTPATIENT [facility] 60-74 MINUTES Salome Prabhakar APRN.[facility] [address] [place] [address] Referral ID Status Reason Start Date Expiration Date Visits Requested Visits Authorized [id number] Authorized PCP Requested Referral Auto-Generate d Referral 03/24/2023 03/23/2024 1 1 Summary Purpose Family History No Family History Records Found Additional Source Comments Source Comments (unrecognize d section and content) In the event this informatio n is protected by the Federal Confidentiality of Alcohol and Drug Abuse Patient Records regulations: The Federal rules restrict any use of the information to criminally investigate or prosecute any alcohol or drug abuse patient.[facility] the event this information is protected by the Federal Confidentiality of Alcohol and Drug Abuse Patient Records regulations: The Federal rules restrict any use of the information to criminally investigate or prosecute any alcohol or drug abuse patient.[facility] the event this information is protected by the Federal Confidentiality of Alcohol and Drug Abuse Patient Records regulations: The Federal rules restrict any use of the information to criminally investigate or prosecute any alcohol or drug abuse patient.[facility] the event this information is protected by the Federal Confidentiality of Alcohol and Drug Abuse Patient Records regulations: The Federal rules restrict any use of the information to criminally investigate or prosecute any alcohol or drug abuse patient.[facility] the event this information is protected by the Federal Confidentiality of Alcohol and Drug Abuse Patient Records regulations: The Federal rules restrict any use of the information to criminally investigate or prosecute any alcohol or drug abuse patient.[facility] the event this information is protected by the Federal Confidentiality of Alcohol and Drug Abuse Patient Records regulations: The Federal rules restrict any use of the information to criminally investigate or prosecute any alcohol or drug abuse patient.[facility] the event this information is protected by the Federal Confidentiality of Alcohol and Drug Abuse Patient Records regulations: The Federal rules restrict any use of the information to criminally investigate or prosecute any alcohol or drug abuse patient.[facility] the event this information is protected by the Federal Confidentiality of Alcohol and Drug Abuse Patient Records regulations: The Federal rules restrict any use of the information to criminally investigate or prosecute any alcohol or drug abuse patient.[facility] the event this information is protected by the Federal Confidentiality of Alcohol and Drug Abuse Patient Records regulations: The Federal rules restrict any use of the information to criminally investigate or prosecute any alcohol or drug abuse patient.[facility] the event this information is protected by the Federal Confidentiality of Alcohol and Drug Abuse Patient Records regulations: The Federal rules restrict any use of the information to criminally investigate or prosecute any alcohol or drug abuse patient.[facility] the event this information is protected by the Federal Confidentiality of Alcohol and Drug Abuse Patient Records regulations: The Federal rules restrict any use of the information to criminally investigate or prosecute any alcohol or drug abuse patient.[facility] Reason for Visit (unrecogniz ed section and content) Reason Onset Date Comments Refill Request 08/21/2022 Reason Comments Results Reason Comments Neck Pain R sided neck pain ca using R sided JEFFREY x1 day Reason Comments Well Woman Reason Comments Eye Problem eyelids and under ey es bilateral redness and itching x 3 days Reason Comments Dental Problem right upper tooth pa in x 2 weeks Reason Onset Date Comments Refill Request 03/17/2024 Reason Comments Sore Throat Cough, sob, dizzines s x 1 day Reason Comments Chest Pain Reason Onset Date Comments Refill Request 06/08/2025 Goals (unrecognized section and content) Goals may be documented in a n alternate sectionGoals may be documented in an alternate section No data available for this sectionGoals may be documented in an alternate section Care Teams (unrecognized sec tion and content) Team Status: Active Member Role Status Dates No Primary Care Physician Family Provider Active No Primary Care Physician Primary Care Provider Active Team Status: Inactive Member Role Status Dates No Primary Care Physician Primary Care Provider Active Dr. Markus Alas DO Attending Provider, Emergency Cecile armando Active Team Status: Inactive Member Role Status Dates No Primary Care Physician Primary Care Provider Active Dr. Owen Krueger MD Emergency Provider Active Team Status: Active Member Role Status Dates Dr. Ceferino Melendrez MD Primary Care Provider Active Team Status: Inactive Member Role Status Dates Dr. Ceferino Melendrez MD Primary Care Provider Active Start: February 11, 2025 End: February 11, 2025 Dr. Owen Krueger MD Emergency Provider Active Sta rt: February 11, 2025 End: February 11, 2025 INFORMATION SOURCE (unrecogn ized section and content) DATE CREATED AUTHOR 03/23/2025 [facility] DATE CREATED AUTHOR AUTHOR'S ORGANIZ ATION 03/29/2025 [facility] FOR RECORDS PERTAINING TO PATIENTS WHO ARE OR HAVE BEEN ENROLLED IN A CHEMICAL DEPENDENCY/SUBSTANCEABUSE PROGRAM, SOME INFORMATION MAY BE OMITTED. This clinical summary was aggregated from multiple sources. Caution should be exercised in using it in the provision of clinical care. This summary normalizes information from multiple sources, and as a consequence, information in this document may materially change the coding, format and clinical context of patient data. In addition, data may be omitted in some cases. CLINICAL DECISIONS SHOULD BE BASED ON THE PRIMARY CLINICAL RECORDS. [employer] provides no warranty or guarantee of the accuracy or completeness of information in this document.
[2025-10-14 21:26] LABS: Hematocrit 37.5 % (37-47); Hemoglobin 12.2 g/dL (12.0-15.0); Immature Granulocytes Count 0.060 X10^3/uL (0.0-0.0); Mean Corp Hgb Conc 32.5 g/dL (32-36); Mean Corpuscular Volume 81.3 fL (81-99); Mean Platelet Vol. 11.0 fl (6.2-12.0); NRBC Flagged by Analyzer 0 % (0-5); Platelet Count 277 K/mm3 (150-450); RBC Distribution Width CV 12.9 % (11.6-14.6); RBC Distribution Width SD 38.3 fl (35.1-43.9); Red Blood Count 4.61 M/mm3 (4.2-5.4); White Blood Count 12.2 K/mm3 (4.4-11.0)
[2025-10-14 21:28] LABS: Mucous, Urine 0 SEEN /hpf (<or=2+)
[2025-10-14 21:30] LABS: Color, Urine Yellow (Yellow); Glucose, Dipstick Normal (Normal); Ketone-Dipstick Negative (Negative); Leukocyte Esterase-Dipstick Negative /ul (Negative); Nitrite-Dipstick Negative (Negative); Occult Blood-Urine 10 /ul (Negative); Protein-Dipstick 30 mg/dl (Negative); Specific Gravity, Urine 1.015 (1.002-1.030); Urine Bilirubin Dipstick Negative (Negative)
[2025-10-14 21:38] LABS: Red Blood Cells-Urine 0-5 SEEN /hpf (0-5); Squamous Epithelial Cells - UA 0-5 SEEN /hpf (5-10)
--- NOTE | 2025-10-14 21:45 | EX.ED.DYSGE1 ---
HPI History of Present Illness Chief Complaint: Flank Pain Detail of Chief Complaint: Acute left flank pain that started 20 minutes prior to presentation Informant: patient Onset/Context/Timing Onset: Hours Context: Sudden Onset Timing: Continuous and Waxes and wanes Quality: Pain Location: Left flank Current Severity: Severe Maximum Severity: Severe Worsened by: Nothing Relieved by: Nothing Associated Symptoms Associated Symptoms: Nausea and vomiting Narrative Narrative: Patient is a 35-year-old female. Last normal menstrual period 1.5 weeks ago. She is not using for control and states she is not sexually active. She has not seen a doctor recently. She is on no medications. She has no allergies to antibiotics or pain medicine. She denies fever, chills night sweats. She denies cardiac or respiratory symptoms. She denies any recent trauma or injury. She denies any vaginal symptoms. She denies dysuria, frequency, urgency or hematuria prior to the onset of pain. She denies pain going down her legs. She denies paresthesia, anesthesia or weakness of her legs. She denies any upper back pain. She localizes the pain to the left flank region. Prior similar symptoms: No Recent Illness/Hospitalization: No PFSH PFS Medical History Hypertension UTI (urinary tract infection) Anemia ADHD Home Medications Medication Instructions Recorded Last Taken Type NK 10/14/25 Unknown History Allergy/AdvReac Type Severity Reaction Status Date / Time Iodine and Iodide Containing Allergy Itching Verified 02/11/25 10:58 Produc Surgical History History of tonsillectomy Social History Smoking Status: Current some day smoker tobacco type: e-cigarettes ROS ROS ED Constitutional Constitutional ED: Denies chills, fever(s), subjective, sweats or weight loss Eyes Eyes: Denies blurry vision or change in vision Cardiovascular Cardiovascular: Denies chest pain, orthopnea, palpitations, paroxysmal nocturnal dyspnea or racing heartbeat Respiratory/Chest Respiratory/Chest: Denies cough, dyspnea, dyspnea on exertion, orthopnea or paroxysmal nocturnal dyspnea Gastrointestinal Gastrointestinal: Reports nausea and vomiting; Denies abdominal pain Genitourinary Genitourinary ED: Reports LMP (females 10-50) Details: Comment: (1.5 weeks ago); Denies dysuria, hematuria or urinary frequency Musculoskeletal Musculoskeletal: Denies arthralgias, back pain or myalgias Integumentary Denies rash Neurologic Neurologic: Denies paresthesias or weakness Hematologic/Lymphatic Hematologic/Lymphatic: Reports systems reviewed and no addt'l complaints, except as documented EXAM Physical Exam Const Vital Signs: 10/14/25 19:58 10/14/25 20:18 Temperature 96.8 F L Temperature Source Temporal Pulse Rate 71 Respiratory Rate 16 Blood Pressure 216/117 H Blood Pressure Mean 150 Pulse Ox 100 Oxygen Delivery Method Room Air Positive well nourished and well developed Constitutional Narrative: Patient is residing on the examination cot. She appears uncomfortable. Her blood pressure is elevated 216/117. General Appearance ED: well developed; Negative for cyanotic, diaphoretic, NAD or pallor HEENT Reports moist mucous membranes HEENT Narrative: Head is atraumatic and normocephalic. Ears normal. Nares patent. Posterior pharynx is normal Eyes PERRL and EOMs intact bilaterally General Eye ED: Negative for pale conjunctiva or scleral icterus Neck no lymphadenopathy, supple and no JVD Resp normal respiratory effort and clear to auscultation bilaterally Cardio regular rate, regular rhythm, S1 normal heart sound, S2 normal heart sound and no murmurs GI normal to inspection, nondistended, normoactive bowel sounds, non-distended and no masses; Negative for non-tender or hepatosplenomegaly GI Narrative: There is no pulsatile mass or palpable mass. There is no abdominal bruit. Inspection: Negative for abdominal distention Auscultation: hypoactive bowel sounds Palpation: soft and tender epigastric Back/Spine no CVA tenderness Thoracic Spine / Upper Back: Negative for thoracic spinal tenderness Lumbar Spine / Lower Back: Negative for lumbar spinal tenderness Extremity normal to inspection Extremity Narrative: There is no discoloration lower extremity exam. She has palpable DP pulse and is symmetric, 2+ Neuro oriented x3, CN's II-XII intact bilaterally and no sensory deficits noted Neuro Narrative: Negative clonus and Babinski sign bilaterally. Sensorium / Orientation: alert Motor Exam: strength 5/5 throughout Psych mental status grossly normal Skin no rashes or lesions noted, no wounds and skin turgor normal General Skin Exam: elasticity normal; Negative for jaundice or pallor MDM MDM MDM Narrative Medical decision making narrative: Differential diagnosis is flank pain unknown etiology, obstructing ureteral stone, aortic dissection, aortic aneurysm, retroperitoneal hematoma, workup included CBC, BMP CT of the abdomen and pelvis. She was medicated with pain medicine. Lab Data Attestation: I reviewed the patient's lab results. Lab results narrative: CBC reveals slight elevation of white count with shift. There is no bandemia. Electrolyte panel/BMP is normal. UA is unremarkable. Labs: Laboratory Results - last 24 hr 10/14/25 10/14/25 21:17 21:25 WBC 12.2 H RBC 4.61 Hgb 12.2 Hct 37.5 MCV 81.3 MCH 26.5 L MCHC 32.5 RDW Std Deviation 38.3 RDW Coeff of Ruba 12.9 Plt Count 277 MPV 11.0 Immature Gran % (Auto) 0.500 Neut % (Auto) 79.8 H Lymph % (Auto) 12.8 L [place] % (Auto) 6.0 Eos % (Auto) 0.7 Baso % (Auto) 0.2 Absolute Neuts (auto) 9.7 H Absolute Lymphs (auto) 1.56 Nucleated RBC % 0 Sodium 139 Potassium 3.5 Chloride 105 Carbon Dioxide 24.6 Anion Gap 9 BUN 11 Creatinine 0.74 Estim Creat Clear Calc 119.69 Est GFR (MDRD) Non-Af 109 BUN/Creatinine Ratio 15.3 Glucose 97 Calcium 8.2 Urine Color Yellow Urine Clarity Cloudy Urine pH 8.0 Ur Specific [place] 1.015 Urine Protein 30 H Urine Glucose (UA) Normal Urine Ketones Negative Urine Occult Blood 10 H Urine Nitrite Negative Urine Bilirubin Negative Urine Urobilinogen Normal Ur Leukocyte Esterase Negative Urine RBC 0-5 SEEN Urine WBC 0-5 SEEN Ur Squamous Epith Cells 0-5 SEEN Amorphous Sediment 1+ PHOS Urine Bacteria 0 SEEN Urine Mucus 0 SEEN Radiography Diagnostic Testing: Clinical Impression(s) from Imaging Studies Abdomen/Pelvis CT 10/14/25 20:19 IMPRESSION: No acute or active inflammatory intra-abdominal pathology. No urinary tract calculi or hydroureteronephrosis on either side. Reading Location: [id number] CT of the abdomen pelvis to evaluate for obstructing stone was negative. There is no evidence of any inflammation. The aorta is not dilated there is no calcification. Patient was informed the cause of her pain is unknown. Treatment and Re-Evaluation :: Patient is sitting up smiling in no pain. She was informed the cause of her pain is unknown. She was informed that her blood pressure is elevated and she will need to have it rechecked. Most recent blood pressure was 148/105. Discharge Plan Triage Chief Complaint: Flank Pain ED Provider: Owen Krueger Dx/Rx/DC Orders Clinical Impression: Acute left flank pain, Nausea & vomiting, Elevated blood-pressure reading without diagnosis of hypertension Instructions: ED Flank Pain with Uncertain Cause, ED Hypertension, To Be Confirmed Prescriptions: No Action NK Primary Care Provider: Ceferino Melendrez Referrals: Ceferino Melendrez MD [Primary Care Provider, Family Practice] - 1-2 Weeks Activity Restrictions/Additional Instructions: You need to call Dr. Ceferino Melendrez for office visit to be seen in 1 to 2 weeks to have your blood pressure rechecked. Print Language: Maltese Disposition Disposition: Home, Self Care
[2025-10-14 21:46] LABS: Anion Gap 9 (5-15); BUN 11 mg/dL (4-19); BUN/Creat Ratio 15.3 RATIO (10-20); Calcium,Total 8.2 mg/dL (7.6-11.0); Carbon Dioxide 24.6 mmol/L (21.0-32.0); Chloride 105 mmol/L (98-108); Estimated Creatinine Clearance 119.69 ml/min (50-250); Glucose 97 mg/dL (70-99); Potassium 3.5 mmol/L (3.3-5.1)
[2025-10-14 22:00] VITALS: BP 128/70; PULSE 80; RESP 16; O2SAT 99
[2025-10-14 22:06] VITALS: BP 128/70; PULSE 80; RESP 16; TEMP 36.8; O2SAT 99
== END 2025-10-14 22:07 | disposition home or self-care (01) ==
PROVIDERS: Emergency Provider Emergency Medicine; PCP Family Medicine; Visit Provider Emergency Medicine
DX: R11.2 Nausea with vomiting, unspecified (principal); R10.A2 Flank pain, left side; R03.0 Elevated blood-pressure reading, without diagnosis of hypertension; F17.290 Nicotine dependence, other tobacco product, uncomplicated
CPT/HCPCS: 74176; 80048; 81001; 85025; 96374; 96375; 99282; J2405